=== PATIENT | male | born 1965 | race Caucasian/White ===

== ENCOUNTER 2018-10-14 07:13 | Inpatient (IN) ==
[2018-10-14] MEDS ORDERED: IOPAMIDOL 100 ML BOTTLE IV ONE (07:14)
[2018-10-14] MEDS ORDERED: 0.9 % SODIUM CHLORIDE 1,000 ML IV ONE (07:18)
--- NOTE | 2018-10-14 08:00 | Emergency Department Note ---
Extremity Problem HPI - General Chief complaint: Extremity Problem,Nontraumatic Stated complaint: left foot redness, swelling, infection Time Seen by Provider: 10/14/18 07:57 Source: patient Mode of arrival: ambulatory Limitations: no limitations - History of Present Illness HPI Narrative: Patient seen here on Monday. At that time was diagnosed as having influenza, high fevers, treated with Tamiflu, discharged to home and is been sleeping mostly since that time. For the last 2 days he's noticed redness of the left foot that started in the toe area any status post amputation of his left fourth toe. He also had a foot ulcer on the bottom of his foot underneath that toe which she was not aware of. Has had fevers chills but then mostly associated with the flu and then those have been improving. Since Monday has developed increasing redness of the left foot now has foot pain as well as ankle pain with movement of the ankle and blister formation to the dorsum of the left amputee site. He feels better from the influenza point of view, is occasionally coughing, not bringing up any phlegm, denies chest pain, denies shortness of breath denies abdominal pain had a little bit of diarrhea but that has resolved. Did drink a lot of water in the last few days. Has not been ambulatory very much secondary to the generalized illness, did notice redness and swelling to the entire left foot almost up to the knee. - Related Data Previous Rx's Medication Instructions Recorded benzonatate 100 mg capsule 100 mg PO .q 8 hours PRN #30 cap 10/01/18 Oseltamivir Phosphate [Tamiflu] 75 mg PO BID #10 cap 10/10/18 Allergies Allergy/AdvReac Type Severity Reaction Status Date / Time No Known Drug Allergies Allergy Verified 10/14/18 07:18 Review of Systems All systems ED: reviewed and negative except as stated. Constitutional: Reports: fever, chills, weakness Past Medical History - Past Medical History Source: nursing notes reviewed Medical history: Reports: non-contributory, other (Recent sinusitis) Surgical history ED: Reports: orthopedic, other Family history: Reports: no significant family history - Social History smoking status: Never smoker Alcohol use: Reports: None Drug use: Reports: none Physical Exam Limitations: no limitations General appearance: alert, in no apparent distress Head: atraumatic, normocephalic Eye: Present: normal appearance, PERRL. Absent: scleral icterus, conjunctival injection ENT: normal exam, normal oropharynx, mucous membranes moist, TM's normal bilaterally, normal external ear exam Neck: Present: normal inspection, full ROM, trachea midline. Absent: tenderness, meningismus Chest: Present: normal inspection, symmetric chest wall rise Respiratory: Present: normal lung sounds bilaterally. Absent: respiratory distress, rales/crackles, wheezes Cardiovascular: Present: regular rate, normal heart sounds Abdominal: Present: soft, normal bowel sounds. Absent: distention, tenderness Extremities: Present: tenderness, pedal edema, joint swelling, other (he has a 1 cm ulceration to the bottom of the foot near MTP joint number for. There is also small vesicular erythematous lesion on the top of the foot near the amputee site). Absent: calf tenderness Back: Absent: CVA tenderness (R), CVA tenderness (L) Neurological: Present: alert, oriented X3, CN II-XII intact. Absent: motor sensory deficit Psychiatric: Present: normal affect Skin: Present: warm, erythema, other (erythema and swelling to the entire dorsum of the left foot.) Course - Reevaluation(s) Reevaluation #1: X-rays reviewed and he does appear to have gas collection to the area of the w ound. That is of concern. Sedimentation rate is pending, chemistry panels pending. Patient signed out to Dr. lee at 9 AM. Vital Signs Temperature 97.9 F 10/14/18 07:14 Pulse Rate 83 10/14/18 07:14 Respiratory Rate 18 10/14/18 07:14 Blood Pressure 135/84 10/14/18 07:14 Pulse Oximetry (%) 97 10/14/18 07:14 Temperature 97.9 F 10/14/18 07:14 Pulse Rate 83 10/14/18 07:14 Respiratory Rate 18 10/14/18 07:14 Blood Pressure 135/84 10/14/18 07:14 Pulse Oximetry (%) 97 10/14/18 07:14 Extremity Problem, Nontraumati - MDM Narrative Medical decision making narrative: Initial impression cellulitis left foot - Lab Data Result diagrams: 10/14/18 07:25 10/14/18 07:25 Lab Results 10/14/18 10/14/18 Range/Units 07:25 07:25 WBC 10.3 (4.5-11.0) K/mcL RBC 4.79 (4.50-5.90) M/mcL Hgb 13.9 (13.5-16.5) g/dL Hct 42.3 (41.0-55.0) % MCV 88.4 (80.0-100.0) fL MCH 29.0 (26.0-34.0) pg MCHC 32.8 (31.0-36.0) g/dL RDW 13.8 (11.5-14.5) % Plt Count 375 (140-440) K/mcL MPV 8.0 (7.4-10.4) fL Band Neutrophils % Not Reportable VBG Lactic Acid 1.0 (0.5-2.0) mmol/L Disposition Pt seen by PRESIDENT AND CHIEF COMMERCIAL OFFICER/PA only: No Clinical Impression: Cellulitis Disposition: Still a Patient Condition: Fair Referrals: Lisa Isaacs ARNP [Primary Care Provider] -
[2018-10-14] MEDS ORDERED: VANCOMYCIN 1,500 MG in 0.9 % SODIUM CHLORIDE 500 ML IV ONE (08:04)
[2018-10-14] MEDS ORDERED: PIPERACILLIN SODIUM/TAZOBACTAM 3.375 GM in DEXTROSE 5% IN WATER 50 ML IV ONE (08:05)
[2018-10-14 08:38] LABS: Mean Cell Volume 88.4 fL (80.0-100.0); Mean Corpuscular HGB Conc 32.8 g/dL (31.0-36.0); Platelet Count 375 K/mcL (140-440); RBC 4.79 M/mcL (4.50-5.90); Red Cell Distribution Width 13.8 % (11.5-14.5)
[2018-10-14 08:56] LABS: Lymphocytes % 27 % (15-49); Monocytes % (Manual) 8 % (1-12); Platelet Estimate NORMAL (NORMAL); RBC Morphology NORMAL (NORMAL); Segmented Neutrophils % 64 % (38-78)
[2018-10-14 09:04] LABS: ALT/SGPT 27 U/l (0-40); Albumin 3.9 gm/dL (3.2-5.2); Albumin/Globulin Ratio 1.1 (1.0-2.3); Alkaline Phosphatase 83 U/L (39-117); Blood Urea Nitrogen 9 mg/dl (6-20)
[2018-10-14] MEDS ORDERED: HYDROmorphone 2 MG/ML VIAL IV PRN (10:19)
--- NOTE | 2018-10-14 12:11 | Internal Med History&Physical ---
Medical - H&P: HPI Patient information: Note initiated : 10/14/18 at 12:08 pm Service Date, if different from initiated Date: [] Patient: Kel Hernandez 53 y/o M admitted on 10/14/18 for Left Foot Redness, Swelling, Infection. Chief Complaint: [] History of present illness: Mr. Hernandez is a 53 year old M presents to the ED with left distal foot wound with swelling tenderness erythema. He recently was diagnosed on Monday in the ED with influenza and feels he is improving from that standpoint. On Wednesdays when he realized he had a "hole in his foot" but there is no swelling pain erythema around it at that time. Is now feeling better from a flu aspect. However Monday his ankle started swelling and become puffy and had some redness around his foot and then this morning he has significant erythema and swelling of his foot and tenderness and some drainage over the fourth toe amputation. He said fevers chills headache. Some nausea but no vomiting and some diarrhea a few days ago. In the ED there is a imaging done which was concerning for fasciitis with some gas. Dr. Burr was contacted. She was started on IV antibiotics. Review of Systems: Pertinent positives as above. Denies vomiting/chest or abdominal pain/cough/dyspnea. Remaining 10 point review of system reviewed negative Medical - H&P: PMH Medical history: Past medical history: Patient has peripheral neuropathy, he has had what he said the whole body angiography by Dr. Connolly which was unremarkable. Chronic wounds to his feet and has had 2 amputations one on each foot the past. Past surgical history: Amputation of the right third toe and left fourth toe family history: Mother is healthy Father had cancer from agent orange Social history: Patient denies tobacco drinks alcohol socially is on his feet 18 hours a day with a [employer] and [employer] Medical - H&P: Meds Home Medications Medication Instructions Recorded Confirmed Type Oseltamivir Phosphate [Tamiflu] 75 mg PO BID #10 cap 10/10/18 10/14/18 Rx Allergies Allergy/AdvReac Type Severity Reaction Status Date / Time No Known Drug Allergies Allergy Verified 10/14/18 07:18 Medical - H&P: Exam - Constitutional Vitals: Temp Pulse Resp BP Pulse Ox 97.9 F 83 18 140/88 98 10/14/18 07:14 10/14/18 07:14 10/14/18 07:14 10/14/18 10:50 10/14/18 10:50 Exam: General: Alert, Awake, No acute Distress Eyes/N/T: EOMI, PEERL, Head/Neck: neck supple, normocephalic atraumatic CV: RRR, No murmurs, normal s1/s2 Pulm: Clear b/l, no wheezing/rhonchi/rales Abd: soft, nontender, +BS x4 Ext: no clubbing/cyanosis/edema. Left foot extending from the toe up into the somers with erythema warmth tenderness he has an open wound around the fourth toe with drainage. Neuro: Alert, moves all extremities, CN 2-12 grossly intact, symmetrical strength b/l upper/lower, sensations intact but decreased lower extremity skin: warm/dry Medical - H&P: Reslt - Labs CBC & Chem 7: 10/14/18 07:25 10/14/18 07:25 Labs: Short CBC 10/14/18 Range/Units 07:25 WBC 10.3 (4.5-11.0) K/mcL Hgb 13.9 (13.5-16.5) g/dL Hct 42.3 (41.0-55.0) % Plt Count 375 (140-440) K/mcL BMP 10/14/18 07:25 Sodium 143 Potassium 4.3 Chloride 106 Carbon Dioxide 24 BUN 9 Creatinine 0.8 Glucose 109 H Calcium 9.1 Liver Function 10/14/18 Range/Units 07:25 Total Bilirubin 0.5 (0.0-1.0) mg/dL AST 21 (0-37) U/l ALT 27 (0-40) U/l Alkaline Phosphatase 83 (39-117) U/L Albumin 3.9 (3.2-5.2) gm/dL Medical - H&P: A/P - Narrative A/P Narrative: A: *Left foot wound infection: -CT showing gas over site of wound *Peripheral neuropathy: Unknown etiology, has seen Dr. Connolly for angiography in past *History of foot wounds: Has seen Dr. Burr in the past *Influenza: Currently undergoing treatment * P: -vanc/zosyn, clind brief course -Dr. Burr following, surgical I&D tomorrow -wound care -Continue home Tamiflu - -ppx: Heparin
--- NOTE | 2018-10-14 12:42 | General Surgery Consult Note ---
History of Present Illness Patient information: Note initiated : 10/14/18 at 12:35 pm Service Date, if different from initiated Date: [] Patient: Kel Hernandez 53 y/o M admitted on 10/14/18 for Left Foot Redness, Swelling, Infection. Chief Complaint: [] Consult date: 10/14/18 Requesting physician: Jason Kimball (Cellultis LEFT foot. Infected neuropathic ulcer LEFT piantar. ) History of present illness: 53/M Admitted via ER with Cellulitis LEFT foot, ankle and lower leg for over 3 to 4 days. Patient has NON DIABETIC peripheral neuropathy of both feet, LEFT > Right . He is s/p LEFT 4 th toe amputation over a year ago. 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 He was seen in ER for FLU like symptoms over 4 to 5 days ago. Given Tamiflu. He is recovering from FLU, but noticed warmth, redness and drainage from the previous toe amputation site with some odor. Imaging studies reveal open plantar area with air in the sub cutaneous tissues. Admitted to hospital for further treatment and started on IV vancomycin and Zosyn. Review of Systems - Constitutional fever(s), night sweats - Integumentary as per HPI, lesions, wounds, other (Plantar ulcer which probes to the interosseous space and dorsal surface of foot. ) - Neurological numbness, sensory deficit Past History Past medical history: Non Diabetic peripheral neuropathy of both feet. Patient received steroid injections around ankle and plantar pressure points of feet in past. Past surgical history: Left fourth toe amputation in past. Medications and Allergies Home Medications Medication Instructions Recorded Confirmed Type Oseltamivir Phosphate [Tamiflu] 75 mg PO BID #10 cap 10/10/18 Rx Allergies Allergy/AdvReac Type Severity Reaction Status Date / Time No Known Drug Allergies Allergy Verified 10/14/18 07:18 Exam Temp Pulse Resp BP Pulse Ox 97.9 F 83 18 140/88 98 10/14/18 07:14 10/14/18 07:14 10/14/18 07:14 10/14/18 10:50 10/14/18 10:50 - General physical appearance well developed, well nourished, no distress, no pain - Eyes PERRL, normal ocular movement - ENT normal pinna, normal nares, normal mucosa, no congestion - Head Head exam IM: Present: atraumatic, normocephalic - Neck no masses, no bruits, no venous distension - Cardiovascular Cardiovascular exam IM: Present: normal rate and rhythm - Respiratory normal expansion, clear to auscultation - Abdomen Abdomen: Present: soft, non tender, bowel sounds - Integumentary Present: other (Plantar ulcer at site of 4 th toe amputation LEFT foot. Probes to soft tissue at site of toe amputation and towards dorsal foot area. There is cellultis along lateral aspect of foot , ankle and towards knee area. ) - Neurologic Present: other (Mixed peripheral neuropathy of both feet, ankles and lower legs. LEFT > RIGHT.) - Musculoskeletal Present: other (Left 4 th toe amputation is past. ) - Psychiatric Present: oriented to time, oriented to person, oriented to place, speech is normal, memory intact Results - Labs 10/14/18 07:25 10/14/18 07:25 Abnormal lab results 10/14/18 10/14/18 Range/Units 07:25 07:25 ESR 72 H (0-15) mm/hr Glucose 109 H (70-105) mg/dL Diabetes panel 10/14/18 Range/Units 07:25 Sodium 143 (133-145) mmol/L Potassium 4.3 (3.3-5.1) mmol/L Chloride 106 (96-108) mmol/L Carbon Dioxide 24 (22-30) mmol/L BUN 9 (6-20) mg/dl Creatinine 0.8 (0.7-1.2) mg/dl Glucose 109 H (70-105) mg/dL Calcium 9.1 (8.6-10.4) mg/dl AST 21 (0-37) U/l ALT 27 (0-40) U/l Alkaline Phosphatase 83 (39-117) U/L Total Protein 7.4 (5.9-8.4) gm/dL Albumin 3.9 (3.2-5.2) gm/dL Calcium panel 10/14/18 Range/Units 07:25 Calcium 9.1 (8.6-10.4) mg/dl Albumin 3.9 (3.2-5.2) gm/dL Pituitary panel 10/14/18 Range/Units 07:25 Sodium 143 (133-145) mmol/L Potassium 4.3 (3.3-5.1) mmol/L Chloride 106 (96-108) mmol/L Carbon Dioxide 24 (22-30) mmol/L BUN 9 (6-20) mg/dl Creatinine 0.8 (0.7-1.2) mg/dl Glucose 109 H (70-105) mg/dL Calcium 9.1 (8.6-10.4) mg/dl Adrenal panel 10/14/18 Range/Units 07:25 Sodium 143 (133-145) mmol/L Potassium 4.3 (3.3-5.1) mmol/L Chloride 106 (96-108) mmol/L Carbon Dioxide 24 (22-30) mmol/L BUN 9 (6-20) mg/dl Creatinine 0.8 (0.7-1.2) mg/dl Glucose 109 H (70-105) mg/dL Calcium 9.1 (8.6-10.4) mg/dl Total Bilirubin 0.5 (0.0-1.0) mg/dL AST 21 (0-37) U/l ALT 27 (0-40) U/l Alkaline Phosphatase 83 (39-117) U/L Total Protein 7.4 (5.9-8.4) gm/dL Albumin 3.9 (3.2-5.2) gm/dL All other labs normal. Assessment and Plan (1) Other specified sepsis Assessment: CSSSI Left foot. Plantar ulcer 4 th toe amputation site. Plan: Wound cleaned at bedside. SEE wound care orders. Patient will need OR debridement HOLGER. Status: Acute Priority: High Comment: Infected LEFT foot plantar ulcer with neuropathy (2) Foot ulcer, left Status: Acute Priority: High Comment: Assessment:Neuropathic LEFT foot plantar ulcer with CSSSI. Plan: See wound care orders. For OR debridement HOLGER Qualifiers: Non-pressure ulcer stage: unspecified non-pressure ulcer stage Qualified Code(s): L97.529 - Non-pressure chronic ulcer of other part of left foot with unspecified severity
--- NOTE | 2018-10-14 12:58 | XRay Report ---
CLINICAL INFORMATION: foot infection COMPARISON: 04/26/2017 FINDINGS: Fourth ray amputation changes at the MTP level again noted. The remaining osseous structures are grossly normal - no plain film evidence for osteomyelitis. There is; however moderate forefoot soft tissue swelling with gas seen in the soft tissues overlying the fourth metatarsal amputation stump suggestive of with cellulitis/fasciitis. Moderate degenerative changes noted in the ankle and talocalcaneal and navicular cuneiform joints. IMPRESSION: Moderate cellulitis/fasciitis in the forefoot in the fourth and fifth rays. Gas within the soft tissues which may have originated from a gas-forming organism or merely be atmospheric. No specific radiographic evidence for osteomyelitis. Interpreted and Authenticated by: Lyle Jerome 10/14/18
[2018-10-14] MEDS ORDERED: ONDANSETRON 4 MG/2 ML VIAL IV PRN (13:15)
[2018-10-14] MEDS ORDERED: VANCOMYCIN PER PHARMACY IV SCH (13:15)
[2018-10-14] MEDS ORDERED: ACETAMINOPHEN 325 MG TABLET PO PRN (13:15)
--- NOTE | 2018-10-14 13:27 | Cat Scan Report ---
CLINICAL INFORMATION: left foot infection COMPARISON: Plain films 04/26/2017 and 10/14/2018. TECHNIQUE: 0.625 helical slices were obtained from the distal tibia and fibula ankle and foot. Following reconstruction, 2.5 axial, sagittal and coronal reformatted images were processed and reviewed in bone and soft tissue windows.. FINDINGS: Fourth ray amputation at the MTP level appreciated. The amputation stump is unremarkable: There is no specific radiographic evidence for osteomyelitis throughout the foot or ankle. There is moderate soft tissue inflammation involving subcutaneous fat and fascia over the fourth and fifth ray which contains subcutaneous gas. Suspect cellulitis and fasciitis. There is an 18 x 3 mm ossification in the deep plantar soft tissues underlying the cuboid and fourth metatarsal base. All ununited avulsion fractures off the tip of the medial malleolus appreciated. There is a 3 mm loose body in the posterior aspect of the ankle mortise. A 4 mm remote avulsion fracture off the lateral calcaneus appreciated. There is mild degenerative change in the talonavicular and navicular cuneiform with marginal spurring. Hammertoe deformities present second through fifth digits IMPRESSION: 1. Moderate cellulitis/fasciitis in the forefoot particularly the fourth and fifth rays. Focal gas seen in the subdermal soft tissues. Gas may been generated from a gas-forming organism or be atmospheric. There is no specific evidence for osteomyelitis or septic arthritis. 2. Other minor chronic findings as described Interpreted and Authenticated by: Lyle Jerome 10/14/18
[2018-10-14] MEDS: CLINDAMYCIN 600 MG in DEXTROSE 5% IN WATER 50 ML IV SCH ×2 (14:39→22:50)
[2018-10-14] MEDS: 0.9 % SODIUM CHLORIDE 10 ML SYRINGE IV SCH ×2 (14:44→20:53)
[2018-10-14] MEDS: PIPERACILLIN SODIUM/TAZOBACTAM 3.375 GM in DEXTROSE 5% IN WATER 50 ML IV SCH (17:57)
[2018-10-14] MEDS: HYDROcodone/APAP 5/325MG TABLET PO PRN (19:05)
[2018-10-14] MEDS: LACTOBACILLUS 1 CAPSULE PO SCH (20:53)
[2018-10-14] MEDS: VANCOMYCIN 1,500 MG in 0.9 % SODIUM CHLORIDE 500 ML IV SCH (20:54)
[2018-10-14] MEDS ORDERED: OSELTAMIVIR PHOSPHATE 75 MG CAPSULE PO SCH (21:00)
[2018-10-14] MEDS: MUPIROCIN OINT 2% 22GM TOPICAL SCH (23:58)
[2018-10-14] MEDS ORDERED: 0.9 % SODIUM CHLORIDE 1,000 ML IV SCH (23:59)
[2018-10-15] MEDS: HYDROcodone/APAP 5/325MG TABLET PO PRN ×4 (00:07→20:56)
[2018-10-15] MEDS: PIPERACILLIN SODIUM/TAZOBACTAM 3.375 GM in DEXTROSE 5% IN WATER 50 ML IV SCH ×5 (00:10→23:53)
[2018-10-15 05:45] LABS: Basophils # (Auto) 0 K/mcL (0.0-0.3); Basophils % (Auto) 0.3 % (0.0-2.0); Eosinophils # (Auto) 0.3 K/mcL (0.0-0.7); Eosinophils % (Auto) 2.5 % (0.0-7.0); Granulocytes % (Auto) 62.3 % (38.0-78.0); Lymphocytes # (Auto) 2.3 K/mcL (1.5-4.8); Lymphocytes % (Auto) 21.7 % (15.5-49.0); Mean Cell Volume 89.4 fL (80.0-100.0); Mean Corpuscular HGB Conc 32.6 g/dL (31.0-36.0); Monocytes # (Auto) 1.4 K/mcL (0.1-0.9); Monocytes % (Auto) 13.2 % (1.0-12.0); Platelet Count 328 K/mcL (140-440); RBC 4.13 M/mcL (4.50-5.90); Red Cell Distribution Width 13.5 % (11.5-14.5)
[2018-10-15 06:04] LABS: ALT/SGPT 27 U/l (0-40); Albumin 3.3 gm/dL (3.2-5.2); Albumin/Globulin Ratio 1.1 (1.0-2.3); Alkaline Phosphatase 75 U/L (39-117); Bilirubin,Direct < 0.2 mg/dL (0.0-0.3); Blood Urea Nitrogen 8 mg/dl (6-20); C-Reactive Protein 8.8 mg/dl (0.0-0.8); Gamma Glutamyl Transpeptidase 30 U/L (8-61); Uric Acid 3.7 mg/dL (2.5-8.0)
[2018-10-15] MEDS: CLINDAMYCIN 600 MG in DEXTROSE 5% IN WATER 50 ML IV SCH (06:06)
[2018-10-15] MEDS: 0.9 % SODIUM CHLORIDE 10 ML SYRINGE IV SCH ×3 (06:06→20:56)
--- NOTE | 2018-10-15 06:55 | Internal Med Progress Note ---
Medical - PN: Subj Patient information: Note initiated : 10/15/18 at 6:52 am Service Date, if different from initiated Date: [] Patient: Kel Hernandez 53 y/o M admitted on 10/14/18 for Left Foot Redness, Swelling, Infection. Chief Complaint: [] Interval history: Mr. Hernandez is a 53 year old M presents to the ED with left distal foot wound with swelling tenderness erythema. He recently was diagnosed on Monday in the ED with influenza and feels he is improving from that standpoint. On Wednesdays when he realized he had a "hole in his foot" but there is no swelling pain erythema around it at that time. Is now feeling better from a flu aspect. However Monday his ankle started swelling and become puffy and had some redness around his foot and then this morning he has significant erythema and swelling of his foot and tenderness and some drainage over the fourth toe amputation. He said fevers chills headache. Some nausea but no vomiting and some diarrhea a few days ago. In the ED there is a imaging done which was concerning for fasciitis with some gas. Dr. Burr was contacted. She was started on IV antibiotics. 10/15 No new complaints. No overnight events. Ankle wrapped in dressing. Plan for OR I&D today with Dr. Burr. Review of Systems: denies headache/fever/chills/nausea/vomiting/chest or abdominal pain/cough/dyspnea/diarrhea. Otherwise see above. - Constitutional Vitals: Vital Signs Temp Pulse Resp BP Pulse Ox 98.7 F 78 14 120/71 96 10/15/18 04:58 10/15/18 04:58 10/15/18 04:58 10/15/18 04:58 10/15/18 04:58 Period Temp Pulse Resp BP Sys/Sweet Pulse Ox Last 24 Hr 97.9 F-100.4 F 68-86 12-18 110-140/66-88 96-98 Intake and Output 10/14/18 10/15/18 10/15/18 21:59 05:59 13:59 Intake Total 1354 1629 Output Total 575 Balance 1354 1054 Weight 84.368 kg Intake & Output: Intake & Output 10/14/18 10/15/18 10/15/18 21:59 05:59 13:59 Intake Total 1354 1629 Output Total 575 Balance 1354 1054 Weight 84.368 kg Intake: IV 104 604 Cleocin 600 mg In Dextrose 5% 54 54 in Water 50 ml @ 100 mls/hr IV Q8H [facility] Rx#:[id number] Zosyn 3.375 gm In Dextrose 5% 50 50 in Water 50 ml @ 100 mls/hr IV Q6H [facility] Rx#:[id number] Vancomycin 1,500 mg In Sodium 500 Chloride 0.9% 500 ml @ 333.3 mls/hr IV Q12H [facility] Rx#: [id number] Oral 1250 1025 Output: Void Amount 575 Other: Meal Dinner Percent of Meal Consumed 75% Feeding Ability Independent # Voids 1 1 Exam: General: Alert, Awake, No acute Distress Eyes/N/T: EOMI, , Head/Neck: neck supple, CV: RRR, No murmurs, Pulm: Clear b/l, no wheezing/rhonchi/rales Abd: soft, nontender, +BS x4 Ext: no clubbing/cyanosis/edema. Left foot with dressings in place. Neuro: Alert, moves all extremities, skin: warm/dry Medical - PN: Obj Da - Labs CBC & Chem 7: 10/15/18 04:15 10/15/18 04:15 Labs: Abnormal Lab Results 10/15/18 10/15/18 10/14/18 04:15 04:15 07:25 RBC 4.13 L Hgb 12.0 L Hct 36.9 L [place] % (Auto) 13.2 H [place] # (Auto) 1.4 H ESR Glucose Calcium 8.4 L C-Reactive Protein 8.8 H 16.5 H 10/14/18 10/14/18 07:25 07:25 RBC Hgb Hct [place] % (Auto) [place] # (Auto) ESR 72 H Glucose 109 H Calcium C-Reactive Protein Meds: Medications Acetaminophen (Tylenol) 650 mg PO Q6HP PRN PRN Reason: PAIN/FEVER > 101 Last Admin: 10/14/18 17:27 Dose: 650 mg Documented by: Hydrocodone Bitart/Acetaminophen ([place]el[place] 5/325mg) 1 tab PO Q4HP PRN PRN Reason: PAIN LEVEL 3-6 Last Admin: 10/15/18 04:59 Dose: 1 tab Documented by: Heparin Sodium (Porcine) (Heparin) 5,000 unit SQ Q12 [facility] Clindamycin Phosphate 600 mg/ (Dextrose) 54 mls @ 100 mls/hr IV Q8H [facility]; Protocol Last Admin: 10/15/18 06:06 Dose: 100 mls/hr Documented by: Sodium Chloride (Sodium Chloride 0.9%) 1,000 mls @ 75 mls/hr IV .[id number] [facility] Stop: 10/15/18 13:18 Last Admin: 10/14/18 22:47 Dose: 75 mls/hr Documented by: Piperacillin Sod/Tazobactam (Sod 3.375 gm/ Dextrose) 50 mls @ 100 mls/hr IV Q6H [facility]; Protocol Last Admin: 10/15/18 05:04 Dose: 100 mls/hr Documented by: Vancomycin HCl 1,500 mg/ (Sodium Chloride) 500 mls @ 333.3 mls/hr IV Q12H [facility] Last Infusion: 10/14/18 22:45 Dose: Infused Documented by: Lactobacillus Rhamnosus (Culturelle) 1 cap PO BID [facility] Last Admin: 10/14/18 20:53 Dose: 1 cap Documented by: Morphine Sulfate (Morphine) 1 - 2 mg IV Q4HP PRN PRN Reason: PAIN LEVEL > 6 Last Admin: 10/15/18 00:16 Dose: 1 mg Documented by: Mupirocin (Bactroban Oint 2%) 1 dose TOPICAL BID [facility] Last Admin: 10/14/18 23:58 Dose: 1 dose Documented by: Ondansetron HCl (Zofran) 4 mg IV Q6HP PRN PRN Reason: Nausea And Vomiting Sodium Chloride (Saline Flush) 10 ml IV Q8 [facility] Last Admin: 10/15/18 06:06 Dose: Not Given Documented by: Vancomycin HCl (Vancomycin Per Pharmacy) 1 order IV UD [facility]; Protocol Medical - PN: A/P - Time Spent With Patient Total time spent is greater than 50% in coordination of care (as documented) at patient's floor/unit and/or counseling patient: - Narrative A/P Narrative: A: *Left foot wound infection/cellulitis: -CT showing gas over site of wound -CRP improving *Peripheral neuropathy: Unknown etiology, has seen Dr. Connolly for angiography in past *History of foot wounds: Has seen Dr. Burr in the past *Influenza: Currently undergoing treatment, finished * P: -vanc/zosyn, clindamycin brief course -Dr. Burr following, surgical I&D today -pending / -wound care - -ppx: Heparin tonight, hold this AM for procedure
--- NOTE | 2018-10-15 07:11 | Emergency Department Note ---
Extremity Problem HPI - General Chief complaint: Extremity Problem,Nontraumatic Stated complaint: left foot redness, swelling, infection Time Seen by Provider: 10/14/18 07:57 Source: patient Mode of arrival: ambulatory Limitations: no limitations - Related Data Previous Rx's Medication Instructions Recorded Oseltamivir Phosphate [Tamiflu] 75 mg PO BID #10 cap 10/10/18 Allergies Allergy/AdvReac Type Severity Reaction Status Date / Time No Known Drug Allergies Allergy Verified 10/14/18 07:18 Review of Systems Constitutional: Reports: fever, chills, weakness Past Medical History - Past Medical History Medical history: Reports: non-contributory, other (Recent sinusitis) Surgical history ED: Reports: orthopedic, other - Social History smoking status: Never smoker Alcohol use: Reports: None Drug use: Reports: none Physical Exam Limitations: no limitations General appearance: alert, in no apparent distress Course Vital Signs Temperature 97.9 F 10/14/18 07:14 Pulse Rate 83 10/14/18 07:14 Respiratory Rate 18 10/14/18 07:14 Blood Pressure 135/84 10/14/18 07:14 Pulse Oximetry (%) 97 10/14/18 07:14 Temperature 98.7 F 10/15/18 04:58 Pulse Rate 78 10/15/18 04:58 Respiratory Rate 14 10/15/18 04:58 Blood Pressure 120/71 10/15/18 04:58 Pulse Oximetry (%) 96 10/15/18 04:58 Extremity Problem, Nontraumati - MDM Narrative Medical decision making narrative: CT scan did show some gas in the area of foot tissue but no obvious abscess. The patient had previously been started on vancomycin by Dr. Salgado. Also Fede. He will be admitted to the hospital by the hospital service with Dr. richard ortega consulting. - Lab Data Lab results reviewed: Yes I reviewed the patient's lab results. Result diagrams: 10/15/18 04:15 10/15/18 04:15 Lab Results 10/14/18 10/14/18 10/14/18 Range/Units 07:25 07:25 07:25 WBC 10.3 (4.5-11.0) K/mcL RBC 4.79 (4.50-5.90) M/mcL Hgb 13.9 (13.5-16.5) g/dL Hct 42.3 (41.0-55.0) % MCV 88.4 (80.0-100.0) fL MCH 29.0 (26.0-34.0) pg MCHC 32.8 (31.0-36.0) g/dL RDW 13.8 (11.5-14.5) % Plt Count 375 (140-440) K/mcL MPV 8.0 (7.4-10.4) fL Total Counted 100 Seg Neutrophils % 64 (38-78) % Band Neutrophils % Not Reportable Lymphocytes % 27 (15-49) % Monocytes % (Manual) 8 (1-12) % Reactive Lymphocytes 1 (0-2) % Platelet Estimate Normal (NORMAL) RBC Morphology Normal (NORMAL) ESR (0-15) mm/hr VBG Lactic Acid 1.0 (0.5-2.0) mmol/L Sodium 143 (133-145) mmol/L Potassium 4.3 (3.3-5.1) mmol/L Chloride 106 (96-108) mmol/L Carbon Dioxide 24 (22-30) mmol/L Anion Gap 13.0 (8-16) BUN 9 (6-20) mg/dl Creatinine 0.8 (0.7-1.2) mg/dl GFR Calculation 101 Glucose 109 H (70-105) mg/dL Calcium 9.1 (8.6-10.4) mg/dl Total Bilirubin 0.5 (0.0-1.0) mg/dL AST 21 (0-37) U/l ALT 27 (0-40) U/l Alkaline Phosphatase 83 (39-117) U/L C-Reactive Protein (0.0-0.8) mg/dl Total Protein 7.4 (5.9-8.4) gm/dL Albumin 3.9 (3.2-5.2) gm/dL Globulin 3.5 (2.2-3.7) gm/dL Albumin/Globulin Ratio 1.1 (1.0-2.3) 10/14/18 10/14/18 Range/Units 07:25 07:25 WBC (4.5-11.0) K/mcL RBC (4.50-5.90) M/mcL Hgb (13.5-16.5) g/dL Hct (41.0-55.0) % MCV (80.0-100.0) fL MCH (26.0-34.0) pg MCHC (31.0-36.0) g/dL RDW (11.5-14.5) % Plt Count (140-440) K/mcL MPV (7.4-10.4) fL Total Counted Seg Neutrophils % (38-78) % Band Neutrophils % Lymphocytes % (15-49) % Monocytes % (Manual) (1-12) % Reactive Lymphocytes (0-2) % Platelet Estimate (NORMAL) RBC Morphology (NORMAL) ESR 72 H (0-15) mm/hr VBG Lactic Acid (0.5-2.0) mmol/L Sodium (133-145) mmol/L Potassium (3.3-5.1) mmol/L Chloride (96-108) mmol/L Carbon Dioxide (22-30) mmol/L Anion Gap (8-16) BUN (6-20) mg/dl Creatinine (0.7-1.2) mg/dl GFR Calculation Glucose (70-105) mg/dL Calcium (8.6-10.4) mg/dl Total Bilirubin (0.0-1.0) mg/dL AST (0-37) U/l ALT (0-40) U/l Alkaline Phosphatase (39-117) U/L C-Reactive Protein 16.5 H (0.0-0.8) mg/dl Total Protein (5.9-8.4) gm/dL Albumin (3.2-5.2) gm/dL Globulin (2.2-3.7) gm/dL Albumin/Globulin Ratio (1.0-2.3) - Radiology Data Radiology results reviewed: Yes I reviewed the patient's radiology results. Disposition Pt seen by SIZING MACHINE TENDER/PA only: No Clinical Impression: Cellulitis Disposition: Xfer As Outpt/Obs ([facility]) Condition: Good
--- NOTE | 2018-10-15 07:40 | General Surgery Progress Note ---
Subjective Patient reports: no new complaints Narrative: Note initiated : 10/15/18 at 7:36 am Service Date, if different from initiated Date: [] Patient: Kel Hernandez 53 y/o M admitted on 10/14/18 for Left Foot Re dness, Swelling, Infection. Chief Complaint: [] Patient had an uneventful night. MIST treatment to Left foot and continuing IV antibiotics. Objective Temp Pulse Resp BP Pulse Ox 98.7 F 78 14 120/71 96 10/15/18 04:58 10/15/18 04:58 10/15/18 04:58 10/15/18 04:58 10/15/18 04:58 AVSS. No changes KATIE L/E Left foot: Improving cellulitis. - Additional Data Intake & Output - Last 24 hours: Intake & Output 10/13/18 10/14/18 10/15/18 10/16/18 05:59 05:59 05:59 05:59 Intake Total 3533 Output Total 575 Balance 2958 Weight 186 lb - Labs 10/15/18 04:15 10/15/18 04:15 Diabetes panel 10/14/18 10/15/18 10/15/18 Range/Units 07:25 04:00 04:15 Sodium 143 TNP 142 (133-145) mmol/L Potassium 4.3 TNP 4.6 (3.3-5.1) mmol/L Chloride 106 TNP 105 (96-108) mmol/L Carbon Dioxide 24 TNP 26 (22-30) mmol/L BUN 9 TNP 8 (6-20) mg/dl Creatinine 0.8 TNP 0.8 (0.7-1.2) mg/dl Glucose 109 H TNP 101 (70-105) mg/dL Calcium 9.1 TNP 8.4 L (8.6-10.4) mg/dl AST 21 TNP 18 (0-37) U/l ALT 27 TNP 27 (0-40) U/l Alkaline Phosphatase 83 TNP 75 (39-117) U/L Total Protein 7.4 TNP 6.2 (5.9-8.4) gm/dL Albumin 3.9 TNP 3.3 (3.2-5.2) gm/dL Triglycerides TNP 73 Calcium panel 10/14/18 10/15/18 10/15/18 Range/Units 07:25 04:00 04:15 Calcium 9.1 TNP 8.4 L (8.6-10.4) mg/dl Phosphorus TNP 3.8 Albumin 3.9 TNP 3.3 (3.2-5.2) gm/dL Pituitary panel 10/14/18 10/15/18 10/15/18 Range/Units 07:25 04:00 04:15 Sodium 143 TNP 142 (133-145) mmol/L Potassium 4.3 TNP 4.6 (3.3-5.1) mmol/L Chloride 106 TNP 105 (96-108) mmol/L Carbon Dioxide 24 TNP 26 (22-30) mmol/L BUN 9 TNP 8 (6-20) mg/dl Creatinine 0.8 TNP 0.8 (0.7-1.2) mg/dl Glucose 109 H TNP 101 (70-105) mg/dL Calcium 9.1 TNP 8.4 L (8.6-10.4) mg/dl Adrenal panel 10/14/18 10/15/18 10/15/18 Range/Units 07:25 04:00 04:15 Sodium 143 TNP 142 (133-145) mmol/L Potassium 4.3 TNP 4.6 (3.3-5.1) mmol/L Chloride 106 TNP 105 (96-108) mmol/L Carbon Dioxide 24 TNP 26 (22-30) mmol/L BUN 9 TNP 8 (6-20) mg/dl Creatinine 0.8 TNP 0.8 (0.7-1.2) mg/dl Glucose 109 H TNP 101 (70-105) mg/dL Calcium 9.1 TNP 8.4 L (8.6-10.4) mg/dl Total Bilirubin 0.5 TNP 0.5 (0.0-1.0) mg/dL AST 21 TNP 18 (0-37) U/l ALT 27 TNP 27 (0-40) U/l Alkaline Phosphatase 83 TNP 75 (39-117) U/L Total Protein 7.4 TNP 6.2 (5.9-8.4) gm/dL Albumin 3.9 TNP 3.3 (3.2-5.2) gm/dL Assessment and Plan (1) Other specified sepsis Problem details: Infected LEFT foot plantar ulcer with neuropathy Status: Acute Current Visit: Yes (2) Foot ulcer, left Problem details: Assessment:Neuropathic LEFT foot plantar ulcer with CSSSI. Plan: See wound care orders. For OR debridement HOLGER Status: Acute Current Visit: No - Time Spent With Patient Total time spent is greater than 50% in coordination of care (as documented) at patient's floor/unit and/or counseling patient: Assessment: Sepsis. CSSSI Left foot. Plan: OR debridement and tissue c/s Procedure scheduled for today. Spoke with patient at length, R/B/C/A discussed. All Qs answered. Patient understands and agrees. less than 15 minutes
[2018-10-15] MEDS ORDERED: MUPIROCIN OINT 2% 22GM TOPICAL SCH (09:00)
[2018-10-15] MEDS ORDERED: VANCOMYCIN 2,000 MG in 0.9 % SODIUM CHLORIDE 500 ML IV SCH (09:00)
[2018-10-15] MEDS: LACTOBACILLUS 1 CAPSULE PO SCH ×2 (09:09→20:56)
[2018-10-15] MEDS: VANCOMYCIN 1,500 MG in 0.9 % SODIUM CHLORIDE 500 ML IV SCH (09:30)
[2018-10-15] MEDS: MUPIROCIN OINT 2% 22GM TOPICAL SCH (12:18)
[2018-10-15] MEDS ORDERED: GENTAMICIN SULFATE 80 MG, CLINDAMYCIN 600 MG, BACITRACIN 50,000 UNIT in 0.9 % SODIUM CH... IRR ONE (16:30)
[2018-10-15] MEDS ORDERED: PROPOFOL 200 MG/20 ML VIAL IV ONE (16:45)
[2018-10-15] MEDS ORDERED: GLYCOPYRROLATE 0.2 MG/ML VIAL IV ONE (16:45)
[2018-10-15] MEDS ORDERED: LIDOCAINE HCL/PF 100 MG/5 ML SYRINGE IV ONE (16:45)
[2018-10-15] MEDS ORDERED: fentaNYL 100 MCG/2 ML VIAL IV ONE (16:45)
[2018-10-15] MEDS ORDERED: MIDAZOLAM 2 MG/2 ML VIAL IV ONE (16:45)
[2018-10-15] MEDS ORDERED: ONDANSETRON 4 MG/2 ML VIAL IV ONE (16:45)
[2018-10-15] MEDS ORDERED: KETAMINE 100 MG/ML ML IV ONE (16:45)
[2018-10-15] MEDS ORDERED: ACETAMINOPHEN 1,000 MG/100 ML BOTTLE IV ONE (17:13)
[2018-10-15] MEDS ORDERED: IPRATROPIUM/ALBUTEROL 3 ML AMPUL.NEB NEB PRN (17:13)
[2018-10-15] MEDS ORDERED: HYDROmorphone 2 MG/ML VIAL IV PRN (17:13)
[2018-10-15] MEDS ORDERED: KETOROLAC 30 MG/ML VIAL IV PRN (17:13)
[2018-10-15] MEDS ORDERED: MEPERIDINE 25 MG/ML SYRINGE IV PRN (17:13)
[2018-10-15] MEDS ORDERED: ONDANSETRON 4 MG/2 ML VIAL IV PRN ×2 (17:13→18:23)
[2018-10-15] MEDS ORDERED: fentaNYL 100 MCG/2 ML VIAL IV PRN (17:13)
[2018-10-15] MEDS ORDERED: LACTATED RINGERS 1,000 ML IV SCH (17:15)
--- NOTE | 2018-10-15 17:26 | Brief Operative Note ---
Date of procedure: 10/15/18 Pre-op diagnosis: Sepsis. Neuropathic plantar ulcer Left foot Post-op diagnosis: same Procedure: Excisional Debridement, Deep tissue biopsies, culture and BONE biopsy to r/o osteo Grafts/Implants: No Anesthesia: GLMA Findings: Thru and thru penetrating wound from plantar aspect left anterior lateral fot to dorsal foot at site of 4 th toe amputation. Complications: none Surgeon: Ney Burr Estimated blood loss (cc): 30 Specimens Removed/Pathology: other Condition: stable Disposition: PACU (Procedure well tolerated.)
[2018-10-15] MEDS ORDERED: VANCOMYCIN PER PHARMACY IV SCH (18:23)
[2018-10-15] MEDS ORDERED: ACETAMINOPHEN 325 MG TABLET PO PRN (18:23)
[2018-10-15] MEDS: VANCOMYCIN 2,000 MG in 0.9 % SODIUM CHLORIDE 500 ML IV SCH (20:55)
[2018-10-15] MEDS: HEPARIN 5,000 UNIT/ML VIAL SQ SCH (20:56)
[2018-10-15] MEDS ORDERED: HEPARIN 5,000 UNIT/ML VIAL SQ SCH (21:00)
[2018-10-16] MEDS: HYDROcodone/APAP 5/325MG TABLET PO PRN ×5 (04:39→21:12)
[2018-10-16] MEDS: PIPERACILLIN SODIUM/TAZOBACTAM 3.375 GM in DEXTROSE 5% IN WATER 50 ML IV SCH ×4 (05:31→23:15)
[2018-10-16 05:46] LABS: Basophils # (Auto) 0 K/mcL (0.0-0.3); Basophils % (Auto) 0.2 % (0.0-2.0); Eosinophils # (Auto) 0.3 K/mcL (0.0-0.7); Eosinophils % (Auto) 3.2 % (0.0-7.0); Granulocytes % (Auto) 57.2 % (38.0-78.0); Lymphocytes # (Auto) 2.2 K/mcL (1.5-4.8); Lymphocytes % (Auto) 26.4 % (15.5-49.0); Mean Cell Volume 88.6 fL (80.0-100.0); Mean Corpuscular HGB Conc 33.1 g/dL (31.0-36.0); Monocytes # (Auto) 1.1 K/mcL (0.1-0.9); Platelet Count 351 K/mcL (140-440); RBC 4.03 M/mcL (4.50-5.90); Red Cell Distribution Width 13.6 % (11.5-14.5)
[2018-10-16] MEDS: 0.9 % SODIUM CHLORIDE 10 ML SYRINGE IV SCH ×3 (06:14→21:12)
[2018-10-16 06:15] LABS: Estimated Average Glucose(eAG) 97 mg/dL
[2018-10-16 06:19] LABS: Blood Urea Nitrogen 8 mg/dl (6-20)
[2018-10-16 06:23] LABS: Prealbumin 13.9 mg/dl (20-40)
--- NOTE | 2018-10-16 07:05 | Internal Med Progress Note ---
Medical - PN: Subj Patient information: Note initiated : 10/16/18 at 7:03 am Service Date, if different from initiated Date: [] Patient: Kel Hernandez 53 y/o M admitted on 10/14/18 for Left Foot Redness, Swelling, Infection. Chief Complaint: [] Interval history: Mr. Hernandez is a 53 year old M presents to the ED with left distal foot wound with swelling tenderness erythema. He recently was diagnosed on Monday in the ED with influenza and feels he is improving from that standpoint. On Wednesdays when he realized he had a "hole in his foot" but there is no swelling pain erythema around it at that time. Is now feeling better from a flu aspect. However Monday his ankle started swelling and become puffy and had some redness around his foot and then this morning he has significant erythema and swelling of his foot and tenderness and some drainage over the fourth toe amputation. He said fevers chills headache. Some nausea but no vomiting and some diarrhea a few days ago. In the ED there is a imaging done which was concerning for fasciitis with some gas. Dr. Burr was contacted. She was started on IV antibiotics. 10/15 No new complaints. No overnight events. Ankle wrapped in dressing. Plan for OR I&D today with Dr. Burr. 10/16 Headache overnight. Left foot pain post I&D. No other complaints. Review of Systems: denies fever/chills/nausea/vomiting/chest or abdominal p ain/cough/dyspnea/diarrhea. Otherwise see above. - Constitutional Vitals: Vital Signs Temp Pulse Resp BP Pulse Ox 98.3 F 73 16 110/70 94 10/16/18 04:39 10/16/18 04:39 10/16/18 04:39 10/16/18 04:39 10/16/18 04:39 Period Temp Pulse Resp BP Sys/Sweet Pulse Ox Last 24 Hr 97.5 F-98.6 F 67-90 10-18 106-135/62-80 94-100 Intake and Output 10/15/18 10/16/18 10/16/18 21:59 05:59 13:59 Intake Total 650 500 Output Total 275 275 Balance 375 225 Weight 93.894 kg Intake & Output: Intake & Output 05/10/16/18 10/16/18 21:59 05:59 13:59 Intake Total 650 500 Output Total 275 275 Balance 375 225 Weight 93.894 kg Intake: IV 50 50 Zosyn 3.375 gm In Dextrose 5% 50 50 in Water 50 ml @ 100 mls/hr IV Q6H [facility] Rx#:[id number] Oral 600 450 Output: Void Amount 275 275 Other: # Voids 1 Exam: General: Alert, Awake, No acute Distress Eyes/N/T: EOMI, , Head/Neck: neck supple, CV: RRR, No murmurs, Pulm: Clear b/l, no wheezing/rhonchi/rales Abd: soft, nontender, +BS x4 Ext: no clubbing/cyanosis/edema. Left foot with dressings in place. Neuro: Alert, moves all extremities, skin: warm/dry Medical - PN: Obj Da - Labs CBC & Chem 7: 10/16/18 04:38 10/16/18 04:38 Labs: Abnormal Lab Results 10/16/18 10/16/18 10/16/18 04:38 04:38 04:38 RBC 4.03 L Hgb 11.8 L Hct 35.7 L MPV 7.1 L [place] % (Auto) 13.0 H [place] # (Auto) 1.1 H ESR Glucose Calcium 8.5 L C-Reactive Protein Prealbumin 13.9 L 10/15/18 10/15/18 10/14/18 04:15 04:15 07:25 RBC 4.13 L Hgb 12.0 L Hct 36.9 L MPV [place] % (Auto) 13.2 H [place] # (Auto) 1.4 H ESR Glucose Calcium 8.4 L C-Reactive Protein 8.8 H 16.5 H Prealbumin 10/14/18 10/14/18 07:25 07:25 RBC Hgb Hct MPV [place] % (Auto) [place] # (Auto) ESR 72 H Glucose 109 H Calcium C-Reactive Protein Prealbumin Meds: Medications Acetaminophen (Tylenol) 650 mg PO Q6HP PRN PRN Reason: PAIN/FEVER > 101 Hydrocodone Bitart/Acetaminophen ([place] 5/325mg) 1 tab PO Q4HP PRN PRN Reason: PAIN LEVEL 3-6 Last Admin: 10/16/18 04:39 Dose: 1 tab Documented by: Heparin Sodium (Porcine) (Heparin) 5,000 unit SQ Q12 [facility] Last Admin: 10/15/18 20:56 Dose: 5,000 unit Documented by: Piperacillin Sod/Tazobactam (Sod 3.375 gm/ Dextrose) 50 mls @ 100 mls/hr IV Q6H [facility]; Protocol Last Admin: 10/16/18 05:31 Dose: 100 mls/hr Documented by: Vancomycin HCl 2,000 mg/ (Sodium Chloride) 500 mls @ 250 mls/hr IV Q12H [facility] Last Admin: 10/15/18 20:55 Dose: 250 mls/hr Documented by: Lactobacillus Rhamnosus (Culturelle) 1 cap PO BID [facility] Last Admin: 10/15/18 20:56 Dose: 1 cap Documented by: Morphine Sulfate (Morphine) 1 - 2 mg IV Q4HP PRN PRN Reason: PAIN LEVEL > 6 Ondansetron HCl (Zofran) 4 mg IV Q6HP PRN PRN Reason: Nausea And Vomiting Sodium Chloride (Saline Flush) 10 ml IV Q8 [facility] Last Admin: 10/16/18 06:14 Dose: 10 ml Documented by: Vancomycin HCl (Vancomycin Per Pharmacy) 1 order IV UD [facility]; Protocol Medical - PN: A/P - Time Spent With Patient Total time spent is greater than 50% in coordination of care (as documented) at patient's floor/unit and/or counseling patient: - Narrative A/P Narrative: A: *Left foot wound infection/cellulitis: s/p I&D (10/15) -CT showing gas over site of wound -CRP improving -WC prelim growing staph aureus and GNB *Peripheral neuropathy: Unknown etiology, has seen Dr. Connolly for angiography in past *History of foot wounds: Has seen Dr. Burr in the past *Influenza: Currently undergoing treatment, finished * P: -vanc/zosyn, clindamycin brief course -Dr. Burr following, surgical biopsies pending -wound per Dr. Burr -pending final WC to determine antibiotic regimen -wound care - -ppx: Heparin
[2018-10-16] MEDS: VANCOMYCIN 2,000 MG in 0.9 % SODIUM CHLORIDE 500 ML IV SCH (09:31)
--- NOTE | 2018-10-16 09:32 | Operative Note ---
DATE OF OPERATION: 10/15/2018 PREOPERATIVE DIAGNOSES: Sepsis syndrome. Complicated skin and skin structure infection. Infected amputation site of left fourth toe with proximal cellulitis extending up to the ankle and lower half of the leg. POSTOPERATIVE DIAGNOSES: Sepsis syndrome. Complicated skin and skin structure infection. Infected amputation site of left fourth toe with a proximal cellulitis extending up to the ankle and lower half of the leg. OPERATION: Excisional debridement, deep tissue biopsies and cultures. Biopsy of the exposed bone to rule out osteomyelitis. SURGEON: Ney Burr M.D. PROCEDURE NOTE: After obtaining informed consent, the patient was taken to the operating room and anesthetized uneventfully in supine position using laryngeal mask airway. Timeout was called. Intravenous antibiotics were given. The left leg was widely cleaned, prepped and draped in a standard fashion. First, the toes were and #15 scalpel blade was used to cut out the entire area of necrotic tissue. This had extended up to the underlying musculature and exposed bone. Tangential excision was carried out, and all the nonviable tissue was removed, and the loculated collections were opened. A bone biopsy was obtained with a bone biopsy punch. Hemostasis achieved with suture ligation and electrocoagulation. We packed this wound open with Xeroform gauze reinforced with 4 x 4 gauze, Kerlix bandage, Coban, and Balbir. Estimated blood loss was about 20 mL. Count of swabs, instruments and needles was reported to be correct. He recovered from anesthesia uneventfully. He was taken to in stable condition. VD:luz maria Job ID: [id number] Doc ID: [id number] Ney Burr MD
[2018-10-16] MEDS: LACTOBACILLUS 1 CAPSULE PO SCH ×2 (09:33→21:11)
[2018-10-16] MEDS: HEPARIN 5,000 UNIT/ML VIAL SQ SCH ×2 (09:33→21:11)
--- NOTE | 2018-10-16 16:23 | Infectious Disease Consult ---
History of Present Illness Patient information: Note initiated : 10/16/18 at 4:05 pm Service Date, if different from initiated Date: [] Patient: Kel Hernandez 53 y/o M admitted on 10/14/18 for Left Foot Redness, Swelling, Infection. 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 Patient reports that he was recently diagnosed on with influenza last week and prescribed Tamiflu. Around 3 days before admission, he noticed that he had a "hole in his foot" which was followed by swelling, redness and pain in the foot and subsequently spreading to his left leg in 2 days. Patient presented to ED for those concerns. He endorsed having fever of around [id number] and chills. He does not remember how he got the wound in the first place, does not remember stepping on something sharp or being hit or bitten by anything. He does walk without shoes around the house just wearing socks often. Also mentions that at work sometimes he would have a stone or a small rock in his shoe when he would not know about it because of neuropathy. He has a dog but denies any wound contact with the dog. In the ED, patient's vital signs were unremarkable. White blood cell count was 10.3, ESR of 72, venous lactate of 1, creatinine 0.8. CT of the foot showed: "Moderate cellulitis/fasciitis in the forefoot particularly the fourth and fifth rays. Focal gas seen in the subdermal soft tissues. Gas may been generated from a gas-forming organism or be atmospheric. There is no specific evidence for osteomyelitis or septic arthritis." Patient had blood cultures, superficial wound cultures sent. He was admitted and started on IV vancomycin and IV Zosyn. Patient underwent "excisional debridement, Deep tissue biopsies, culture and BONE biopsy to r/o osteo" on 10/[address] Burr. Wound cultures taken at admission grew MSSA and pansensitive E. coli. Operative cultures have been growing gram-positive cocci, light growth with ID and sensitivities to follow in 1-2 days. Pt reports feeling better after surgery and being on antibiotics. 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 doesnot smoke Medications and Allergies Home Medications Medication Instructions Recorded Confirmed Type Oseltamivir Phosphate [Tamiflu] 75 mg PO BID #10 cap 10/10/18 10/14/18 Rx Allergies Allergy/AdvReac Type Severity Reaction Status Date / Time No Known Drug Allergies Allergy Verified 10/14/18 07:18 Physical Examination Vital signs: Temp Pulse Resp BP Pulse Ox 37.0 C 79 16 128/79 96 10/16/18 12:00 10/16/18 12:00 10/16/18 12:00 10/16/18 12:00 10/16/18 12:00 General appearance: no acute distress Eyes pulmonary: nonicteric ENT: other (no thrush, ok oral hygiene) Auscultation: bilateral: clear Cardiovascular: other (s1 s2 normal, no m/r/g) Gastrointestinal: normoactive bowel sounds, soft, non-tender Extremities: other (rt foot is wrapped in dressing. Rt leg is still warm, no redness, mildly swollen compared to the right side. no discoloration or open wounds over the leg. Rt leg with no edema) Results - Laboratory Findings CBC and BMP: 10/17/18 04:38 10/17/18 04:38 Abnormal lab findings: Abnormal Labs 10/14/18 10/14/18 10/14/18 07:25 07:25 07:25 RBC Hgb Hct MPV [place] % (Auto) [place] # (Auto) ESR 72 H Glucose 109 H Calcium C-Reactive Protein 16.5 H Prealbumin 10/15/18 10/15/18 10/16/18 04:15 04:15 04:38 RBC 4.13 L 4.03 L Hgb 12.0 L 11.8 L Hct 36.9 L 35.7 L MPV 7.1 L [place] % (Auto) 13.2 H 13.0 H [place] # (Auto) 1.4 H 1.1 H ESR Glucose Calcium 8.4 L C-Reactive Protein 8.8 H Prealbumin 10/16/18 10/16/18 04:38 04:38 RBC Hgb Hct MPV [place] % (Auto) [place] # (Auto) ESR Glucose Calcium 8.5 L C-Reactive Protein Prealbumin 13.9 L Microbiology: Microbiology 10/15/18 17:01 Bone - Foot Gram Stain - Final 10/15/18 17:01 Bone - Foot Gram Stain - Final 10/15/18 17:01 Bone - Foot Anaerobic Culture - Preliminary 10/15/18 17:00 Foot - Left Gram Stain - Final 10/15/18 17:00 Foot - Left Gram Stain - Final 10/15/18 17:00 Foot - Left Anaerobic Culture - Preliminary 10/15/18 17:00 Foot - Left Gram Stain - Final 10/15/18 17:00 Foot - Left Wound Culture - Preliminary Gram positive cocci 10/14/18 09:00 Foot - Left Gram Stain - Final 10/14/18 09:00 Foot - Left Wound Culture - Final Staphylococcus aureus Escherichia coli 10/14/18 07:25 Blood Blood Culture - Preliminary 10/14/18 07:35 Blood Blood Culture - Preliminary Assessment and Plan - Narrative A/P Narrative: A: 1. Left foot penetrating wound with moderate cellulitis/fasciitis in the forefoot particularly the fourth and fifth rays. Focal gas seen in the subdermal soft tissues (likely because it was an open wound) - superf Cx growing MSSA and queen sens Ecoli - Op tissue Cx growing GPC (ID and sensi pending) - Bone Cx NGTD 2. No sepsis: qSOFA score 0 Recommendations: - As superficial cultures growing MSSA which has a high predictive value of being isolated from the deeper/bone cultures, IV vancomycin can be stopped Continue IV Zosyn 3.375 g every 6 hours for now Await final operative cultures. will make further de-escalation accordingly will check a MRSA nasal swab. If positive will consider decolonization to prevent future infections Patient counseled extensively not to walk barefoot, seeing neurologist to determine the cause of his neuropathy. Anticipate around 4 to 6 weeks of antibiotics based on operative cultures will follow Brody Hutchison MD Infectious disease
--- NOTE | 2018-10-16 17:03 | General Surgery Progress Note ---
Subjective Narrative: Note initiated : 10/16/18 at 5:00 pm Service Date, if different from initiated Date: [] Patient: Kel Hernandez 53 y/o M admitted on 10/14/18 for Left Foot Redness, Swelling, Infection. Chief Complaint: []Patient seen with Dr. juan jose LOPEZ and Avril RN In patient wound nurse . Post operative dressings CDI. Preliminary wound c/s growing GPC. Sensitivity pending. Objective Temp Pulse Resp BP Pulse Ox 98.9 F 77 16 121/70 95 10/16/18 16:00 10/16/18 16:00 10/16/18 16:00 10/16/18 16:00 10/16/18 16:00 AVSS. Lab results reviewed. No changes KATIE. Left foot dressings CDI. Toes PWD. Patient c/o Pain at wound site. One Percocet NOT helping. - Additional Data Intake & Output - Last 24 hours: Intake & Output 10/14/18 10/15/18 10/16/18 10/17/18 05:59 05:59 05:59 05:59 Intake Total 3533 1874 1900 Output Total 575 550 Balance 2958 1324 1900 Weight 186 lb 207 lb - Labs 10/16/18 04:38 10/16/18 04:38 Diabetes panel 10/16/18 10/16/18 Range/Units 04:38 04:38 Sodium 141 (133-145) mmol/L Potassium 4.6 (3.3-5.1) mmol/L Chloride 107 (96-108) mmol/L Carbon Dioxide 25 (22-30) mmol/L BUN 8 (6-20) mg/dl Creatinine 0.8 (0.7-1.2) mg/dl Glucose 99 (70-105) mg/dL Hemoglobin A1c 5.0 (4.0-6.0) % HGB Calcium 8.5 L (8.6-10.4) mg/dl Thyroid panel 10/16/18 Range/Units 04:38 TSH 1.57 (0.27-5.01) uIU/ml Calcium panel 10/16/18 Range/Units 04:38 Calcium 8.5 L (8.6-10.4) mg/dl Pituitary panel 10/16/18 10/16/18 Range/Units 04:38 04:38 Sodium 141 (133-145) mmol/L Potassium 4.6 (3.3-5.1) mmol/L Chloride 107 (96-108) mmol/L Carbon Dioxide 25 (22-30) mmol/L BUN 8 (6-20) mg/dl Creatinine 0.8 (0.7-1.2) mg/dl Glucose 99 (70-105) mg/dL Calcium 8.5 L (8.6-10.4) mg/dl TSH 1.57 (0.27-5.01) uIU/ml Adrenal panel 10/16/18 Range/Units 04:38 Sodium 141 (133-145) mmol/L Potassium 4.6 (3.3-5.1) mmol/L Chloride 107 (96-108) mmol/L Carbon Dioxide 25 (22-30) mmol/L BUN 8 (6-20) mg/dl Creatinine 0.8 (0.7-1.2) mg/dl Glucose 99 (70-105) mg/dL Calcium 8.5 L (8.6-10.4) mg/dl Assessment and Plan (1) Other specified sepsis Problem details: Infected LEFT foot plantar ulcer with neuropathy Status: Acute Current Visit: Yes (2) Foot ulcer, left Problem details: Assessment:Neuropathic LEFT foot plantar ulcer with CSSSI. Plan: See wound care orders. For OR debridement HOLGER Status: Acute Current Visit: No - Narrative A/P Narrative: Assessment: Post operative pain. DFU with Sepsis. S/P OR debridement. Plan: Change of dressing tomorrow. Filled out paperwork for [employer] Wound VAC. Await ID recommendations reg. Abx. Anticipate D/C in 1-2 days. Will decide about adjuvant HBOT as out patient. F/U at wound care center. - Time Spent With Patient Total time spent is greater than 50% in coordination of care (as documented) at patient's floor/unit and/or counseling patient: 25 - 35 minutes
[2018-10-16] MEDS: DOCUSATE SODIUM 100 MG CAPSULE PO SCH (21:11)
[2018-10-17] MEDS: HYDROcodone/APAP 5/325MG TABLET PO PRN ×3 (04:25→13:35)
[2018-10-17] MEDS: PIPERACILLIN SODIUM/TAZOBACTAM 3.375 GM in DEXTROSE 5% IN WATER 50 ML IV SCH ×2 (05:14→11:58)
[2018-10-17] MEDS: 0.9 % SODIUM CHLORIDE 10 ML SYRINGE IV SCH ×3 (05:14→21:31)
[2018-10-17 06:22] LABS: Basophils # (Auto) 0 K/mcL (0.0-0.3); Basophils % (Auto) 0.4 % (0.0-2.0); Eosinophils # (Auto) 0.3 K/mcL (0.0-0.7); Eosinophils % (Auto) 3.4 % (0.0-7.0); Granulocytes % (Auto) 54.7 % (38.0-78.0); Lymphocytes # (Auto) 2.3 K/mcL (1.5-4.8); Lymphocytes % (Auto) 28.5 % (15.5-49.0); Mean Cell Volume 89.2 fL (80.0-100.0); Mean Corpuscular HGB Conc 32.3 g/dL (31.0-36.0); Monocytes # (Auto) 1.1 K/mcL (0.1-0.9); Platelet Count 406 K/mcL (140-440); RBC 4.25 M/mcL (4.50-5.90); Red Cell Distribution Width 13.8 % (11.5-14.5)
[2018-10-17 06:34] LABS: ALT/SGPT 23 U/l (0-40); Albumin 3.5 gm/dL (3.2-5.2); Albumin/Globulin Ratio 1.1 (1.0-2.3); Alkaline Phosphatase 71 U/L (39-117); Bilirubin,Direct < 0.2 mg/dL (0.0-0.3); Blood Urea Nitrogen 9 mg/dl (6-20); Gamma Glutamyl Transpeptidase 33 U/L (8-61)
[2018-10-17] MEDS: DOCUSATE SODIUM 100 MG CAPSULE PO SCH ×2 (09:23→21:29)
[2018-10-17] MEDS: LACTOBACILLUS 1 CAPSULE PO SCH ×2 (09:23→21:29)
[2018-10-17] MEDS: HEPARIN 5,000 UNIT/ML VIAL SQ SCH ×2 (09:23→21:30)
--- NOTE | 2018-10-17 12:33 | Infectious Disease Prog Note ---
Subjective Patient information: Note initiated : 10/17/18 at 12:31 pm Service Date, if different from initiated Date: [] Patient: Kel Hernandez 53 y/o M admitted on 10/14/18 for Left Foot Redness, Swelling, Infection. Chief Complaint: [] Interval history: Pt doing well. Denied any fevers, chills, n/v, diarrhea. Tolerating antibiotics without any side effects. Shared with him the culture data and plan for home going antibiotics would be finalized tomorrow. Pt voiced understanding. Objective Objective Narrative: ao x 3, in nad chest cta s1 s2 normal bs ++, nttd Left foot: surgical site has changes from surgery yesterday (blood, exposed soft tissue), no pus. The redness has improved remarkably. Left leg temp is similar to left leg. No discoloration. Pt able to wiggle his toes. - Vital Signs Vital signs: Vital Signs Temp Pulse Resp BP BP Pulse Ox 10/17/18 07:42 37.0 C 63 18 121/76 96 10/17/18 04:20 36.9 C 65 14 126/80 97 10/16/18 23:08 36.9 C 63 14 117/74 95 10/16/18 18:30 36.8 C 92 H 16 118/74 94 10/16/18 16:00 37.2 C 77 16 121/70 95 Intake and Output 10/16/18 10/17/18 10/17/18 21:59 05:59 13:59 Intake Total 1400 700 Output Total 250 950 Balance 1150 -250 Intake: IV 600 100 Zosyn 3.375 gm In Dextrose 5% 100 100 in Water 50 ml @ 100 mls/hr IV Q6H [facility] Rx#:[id number] Vancomycin 2,000 mg In Sodium 500 Chloride 0.9% 500 ml @ 250 mls/ hr IV Q12H [facility] Rx#:[id number] Oral 800 600 Output: Void Amount 250 950 Other: Urine Appearance Clear Clear Urine Color Dark Yellow Dark Yellow Urine Odor Normal Normal Weight 93.695 kg Intake & Output: Intake & Output 10/16/18 10/17/18 10/17/18 21:59 05:59 13:59 Intake Total 1400 700 Output Total 250 950 Balance 1150 -250 Weight 93.695 kg Intake: IV 600 100 Zosyn 3.375 gm In Dextrose 5% 100 100 in Water 50 ml @ 100 mls/hr IV Q6H [facility] Rx#:[id number] Vancomycin 2,000 mg In Sodium 500 Chloride 0.9% 500 ml @ 250 mls/ hr IV Q12H [facility] Rx#:[id number] Oral 800 600 Output: Void Amount 250 950 Other: Urine Appearance Clear Clear Urine Color Dark Yellow Dark Yellow Urine Odor Normal Normal - Lab 10/17/18 04:38 10/17/18 04:38 Most recent lab results Calcium 8.7 mg/dl (8.6-10.4) 10/17/18 04:38 Phosphorus 3.3 mg/dL (2.7-4.5) 10/17/18 04:38 Magnesium 2.5 mg/dL (1.6-2.5) 10/17/18 04:38 Microbiology 10/15/18 17:01 Aspirate - Foot Gram Stain - Final 10/15/18 17:01 Aspirate - Foot Body Fluid Culture - Final 10/15/18 17:00 Foot - Left Gram Stain - Final 10/15/18 17:00 Foot - Left Gram Stain - Final 10/15/18 17:00 Foot - Left Anaerobic Culture - Preliminary 10/15/18 17:00 Foot - Left Gram Stain - Final 10/15/18 17:00 Foot - Left Wound Culture - Preliminary Staphylococcus aureus 10/15/18 17:01 Bone - Foot Gram Stain - Final 10/15/18 17:01 Bone - Foot Gram Stain - Final 10/15/18 17:01 Bone - Foot Anaerobic Culture - Preliminary 10/14/18 07:25 Blood Blood Culture - Preliminary 10/14/18 07:35 Blood Blood Culture - Preliminary 10/16/18 17:22 Nose MRSA (PCR) - Final 10/14/18 09:00 Foot - Left Gram Stain - Final 10/14/18 09:00 Foot - Left Wound Culture - Final Staphylococcus aureus Escherichia coli Medications Active Medications: Acetaminophen (Tylenol) 650 mg PO Q6HP PRN PRN Reason: PAIN/FEVER > 101 Hydrocodone Bitart/Acetaminophen ([place] 5/325mg) 1 - 2 tab PO Q4HP PRN PRN Reason: PAIN LEVEL 3-6 Last Admin: 10/17/18 09:23 Dose: 2 tab Documented by: Admin: 10/17/18 04:25 Dose: 2 tab Documented by: Admin: 10/16/18 21:12 Dose: 2 tab Documented by: Admin: 10/16/18 17:12 Dose: 2 tab Documented by: CORINNA Docusate Sodium (Colace) 100 mg PO BID [facility] Last Admin: 10/17/18 09:23 Dose: 100 mg Documented by: Admin: 10/16/18 21:11 Dose: 100 mg Documented by: JAMES Heparin Sodium (Porcine) (Heparin) 5,000 unit SQ Q12 [facility] Last Admin: 10/17/18 09:23 Dose: 5,000 unit Documented by: Admin: 10/16/18 21:11 Dose: 5,000 unit Documented by: Admin: 10/16/18 09:33 Dose: 5,000 unit Documented by: Admin: 10/15/18 20:56 Dose: 5,000 unit Documented by: SHARMILA Piperacillin Sod/Tazobactam (Sod 3.375 gm/ Dextrose) 50 mls @ 100 mls/hr IV Q6H [facility]; Protocol Last Admin: 10/17/18 11:58 Dose: 100 mls/hr Documented by: Infusion: 10/17/18 05:44 Dose: 100 mls/hr Documented by: Admin: 10/17/18 05:14 Dose: 100 mls/hr Documented by: Infusion: 10/16/18 23:57 Dose: 0 mls/hr Documented by: Admin: 10/16/18 23:15 Dose: 100 mls/hr Documented by: Infusion: 10/16/18 18:45 Dose: 0 mls/hr Documented by: Admin: 10/16/18 18:00 Dose: 100 mls/hr Documented by: Infusion: 10/16/18 16:03 Dose: 0 mls/hr Documented by: Admin: 10/16/18 12:07 Dose: 100 mls/hr Documented by: Infusion: 10/16/18 07:50 Dose: 0 mls/hr Documented by: Admin: 10/16/18 05:31 Dose: 100 mls/hr Documented by: Infusion: 10/16/18 00:23 Dose: 100 mls/hr Documented by: Admin: 10/15/18 23:53 Dose: 100 mls/hr Documented by: SHARMILA Lactobacillus Rhamnosus (Culturelle) 1 cap PO BID [facility] Last Admin: 10/17/18 09:23 Dose: 1 cap Documented by: Admin: 10/16/18 21:11 Dose: 1 cap Documented by: Admin: 10/16/18 09:33 Dose: 1 cap Documented by: Admin: 10/15/18 20:56 Dose: 1 cap Documented by: SHARMILA Morphine Sulfate (Morphine) 1 - 2 mg IV Q4HP PRN PRN Reason: PAIN LEVEL > 6 Last Admin: 10/16/18 23:14 Dose: 1 mg Documented by: Admin: 10/16/18 13:37 Dose: 1 mg Documented by: Admin: 10/16/18 12:48 Dose: 1 mg Documented by: CORINNA Ondansetron HCl (Zofran) 4 mg IV Q6HP PRN PRN Reason: Nausea And Vomiting Sodium Chloride (Saline Flush) 10 ml IV Q8 [facility] Admin: 10/17/18 05:14 Dose: 10 ml Documented by: Admin: 10/16/18 21:12 Dose: 10 ml Documented by: Admin: 10/16/18 12:40 Dose: 10 ml Documented by: Admin: 10/16/18 06:14 Dose: 10 ml Documented by: Admin: 10/15/18 20:56 Dose: 10 ml Documented by: SHARMILA Assessment and Plan - Narrative A/P Narrative: A: 1. Left foot penetrating wound with moderate cellulitis/fasciitis in the forefoot particularly the fourth and fifth rays. Focal gas seen in the subdermal soft tissues (likely because it was an open wound) - superf Cx growing MSSA and queen sens Ecoli - Op tissue Cx growing Staph aureus (sensi pending) - Bone Cx NGTD - negative MRSA nasal swab 2. No sepsis: qSOFA score 0 Recommendations: - As superficial cultures growing MSSA which has a high predictive value of being isolated from the deeper/bone cultures, IV vancomycin can be stopped Stop IV Zosyn - will start IV Cefazolin 2 gm q8 hrs, day 2 [counting from his day of surgery] - will recommend PICC line placement. Patient counseled extensively not to walk barefoot, seeing neurologist to determine the cause of his neuropathy. Anticipate around 4 to 6 weeks of antibiotics based on operative cultures (bone culture positive or not by tomorrow) will follow Brody Hutchison MD Infectious disease
[2018-10-17] MEDS: ceFAZolin 1 GM VIAL IV SCH ×2 (13:16→21:30)
--- NOTE | 2018-10-17 13:38 | General Surgery Progress Note ---
Subjective Patient reports: no new complaints, other (Keen to get well and go home soon. ) Narrative: Note initiated : 10/17/18 at 1:35 pm Service Date, if different from initiated Date: [] Patient: Kel Hernandez 53 y/o M admitted on 10/14/18 for Left Foot Redness, Swelling, Infection. Chief Complaint: [] Objective Temp Pulse Resp BP Pulse Ox 97.9 F 66 18 107/73 95 10/17/18 12:00 10/17/18 12:00 10/17/18 12:00 10/17/18 12:00 10/17/18 12:00 AVSS. No changes KATIE. L/E. Surgical site wound; Clean and stable. Improving. No odor, No drainage. No residual necroses. NV intact. FROM ankle / toes. Wound VAC ready Labs / cultures checked. - Additional Data Intake & Output - Last 24 hours: Intake & Output 10/15/18 10/16/18 10/17/18 10/18/18 05:59 05:59 05:59 05:59 Intake Total 3533 1874 2650 Output Total 705 733 7182 Balance 2958 1324 1450 Weight 186 lb 207 lb 206 lb 9 oz - Labs 10/17/18 04:38 10/17/18 04:38 Diabetes panel 10/17/18 Range/Units 04:38 Sodium 143 (133-145) mmol/L Potassium 4.5 (3.3-5.1) mmol/L Chloride 106 (96-108) mmol/L Carbon Dioxide 27 (22-30) mmol/L BUN 9 (6-20) mg/dl Creatinine 0.8 (0.7-1.2) mg/dl Glucose 90 (70-105) mg/dL Calcium 8.7 (8.6-10.4) mg/dl AST 14 (0-37) U/l ALT 23 (0-40) U/l Alkaline Phosphatase 71 (39-117) U/L Total Protein 6.8 (5.9-8.4) gm/dL Albumin 3.5 (3.2-5.2) gm/dL Triglycerides 157 H (<150) mg/dl Calcium panel 10/17/18 Range/Units 04:38 Calcium 8.7 (8.6-10.4) mg/dl Phosphorus 3.3 (2.7-4.5) mg/dL Albumin 3.5 (3.2-5.2) gm/dL Pituitary panel 10/17/18 Range/Units 04:38 Sodium 143 (133-145) mmol/L Potassium 4.5 (3.3-5.1) mmol/L Chloride 106 (96-108) mmol/L Carbon Dioxide 27 (22-30) mmol/L BUN 9 (6-20) mg/dl Creatinine 0.8 (0.7-1.2) mg/dl Glucose 90 (70-105) mg/dL Calcium 8.7 (8.6-10.4) mg/dl Adrenal panel 10/17/18 Range/Units 04:38 Sodium 143 (133-145) mmol/L Potassium 4.5 (3.3-5.1) mmol/L Chloride 106 (96-108) mmol/L Carbon Dioxide 27 (22-30) mmol/L BUN 9 (6-20) mg/dl Creatinine 0.8 (0.7-1.2) mg/dl Glucose 90 (70-105) mg/dL Calcium 8.7 (8.6-10.4) mg/dl Total Bilirubin 0.4 (0.0-1.0) mg/dL AST 14 (0-37) U/l ALT 23 (0-40) U/l Alkaline Phosphatase 71 (39-117) U/L Total Protein 6.8 (5.9-8.4) gm/dL Albumin 3.5 (3.2-5.2) gm/dL Assessment and Plan (1) Other specified sepsis Problem details: Infected LEFT foot plantar ulcer with neuropathy Status: Acute Current Visit: Yes (2) Foot ulcer, left Problem details: Assessment:Neuropathic LEFT foot plantar ulcer with CSSSI. Plan: See wound care orders. For OR debridement HOLGER Status: Acute Current Visit: No - Time Spent With Patient Total time spent is greater than 50% in coordination of care (as documented) at patient's floor/unit and/or counseling patient: Assessment: Satisfactory post surgical progress. Source of sepsis adequately treated. Patient seen and wound examined with Avril BOYD and Dr. Hutchison, ID Plan: Wound VAC and Wound Care orders per Avril BOYD. Antibiotic Management per ID. Anticipate D/C soon and f/u in wound clinic. 25 - 35 minutes
--- NOTE | 2018-10-17 14:58 | Internal Med Progress Note ---
Medical - PN: Subj Patient information: Note initiated : 10/17/18 at 2:55 pm Service Date, if different from initiated Date: [] Patient: Kel Hernandez 53 y/o M admitted on 10/14/18 for Left Foot Redness, Swelling, Infection. Chief Complaint: [] Interval history: Mr. Hernandez is a 53 year old M presents to the ED with left distal foot wound with swelling tenderness erythema. He recently was diagnosed on Monday in the ED with influenza and feels he is improving from that standpoint. On Wednesdays when he realized he had a "hole in his foot" but there is no swelling pain erythema around it at that time. Is now feeling better from a flu aspect. However Monday his ankle started swelling and become puffy and had some redness around his foot and then this morning he has significant erythema and swelling of his foot and tenderness and some drainage over the fourth toe amputation. He said fevers chills headache. Some nausea but no vomiting and some diarrhea a few days ago. In the ED there is a imaging done which was concerning for fasciitis with some gas. Dr. Burr was contacted. She was started on IV antibiotics. 10/15 No new complaints. No overnight events. Ankle wrapped in dressing. Plan for OR I&D today with Dr. Burr. 10/16 Headache overnight. Left foot pain post I&D. No other complaints. 10/17 Patient seen and examined no acute overnight events. Still has some pain in the left foot. Otherwise no new complaints or concerns Pertinent ROS: Denies headache, dizziness Denies chest pain, palpitations Denies cough or shortness of breath Denies abdominal pain, nausea or vomiting. - Constitutional Vitals: Vital Signs Temp Pulse Resp BP Pulse Ox 97.9 F 66 18 107/73 95 10/17/18 12:00 10/17/18 12:00 10/17/18 12:00 10/17/18 12:00 10/17/18 12:00 Period Temp Pulse Resp BP Sys/Sweet Pulse Ox Last 24 Hr 97.9 F-98.9 F 63-92 14-18 107-126/70-80 94-97 Intake and Output 10/17/18 10/17/18 10/17/18 05:59 13:59 21:59 Intake Total 700 Output Total 950 Balance -250 Intake & Output: Intake & Output 10/17/18 10/17/18 10/17/18 05:59 13:59 21:59 Intake Total 700 Output Total 950 Balance -250 Intake: IV 100 Zosyn 3.375 gm In Dextrose 5% 100 in Water 50 ml @ 100 mls/hr IV Q6H [facility] Rx#:[id number] Oral 600 Output: Void Amount 950 Other: Urine Appearance Clear Urine Color Dark Yellow Urine Odor Normal Exam: Constitutional; Afebrile, cooperative, alert, not in distress. Respiratory system: Air Entry equal on both sides, No crackles or wheezing, no rhonchi. CVS- Rate rhythm regular, S1,S2 heard, no gallop, no rub. PRESSFITTER- AOOx3, moving all extremities, no gross focal deficit noted. Medical - PN: Obj Da - Labs CBC & Chem 7: 10/17/18 04:38 10/17/18 04:38 Labs: Abnormal Lab Results 10/17/18 10/17/18 10/16/18 04:38 04:38 04:38 RBC 4.25 L Hgb 12.3 L Hct 37.9 L MPV 7.1 L [place] % (Auto) 13.0 H [place] # (Auto) 1.1 H Calcium C-Reactive Protein Prealbumin 13.9 L Triglycerides 157 H 10/16/18 10/16/18 10/15/18 04:38 04:38 04:15 RBC 4.03 L Hgb 11.8 L Hct 35.7 L MPV 7.1 L [place] % (Auto) 13.0 H [place] # (Auto) 1.1 H Calcium 8.5 L 8.4 L C-Reactive Protein 8.8 H Prealbumin Triglycerides 10/15/18 04:15 RBC 4.13 L Hgb 12.0 L Hct 36.9 L MPV [place] % (Auto) 13.2 H [place] # (Auto) 1.4 H Calcium C-Reactive Protein Prealbumin Triglycerides Meds: Medications Acetaminophen (Tylenol) 1,000 mg PO TID [facility] Cefazolin Sodium (Ancef) 2 gm IV Q8H [facility]; Protocol Last Admin: 10/17/18 13:16 Dose: 2 gm Documented by: Docusate Sodium (Colace) 100 mg PO BID [facility] Last Admin: 10/17/18 09:23 Dose: 100 mg Documented by: Heparin Sodium (Porcine) (Heparin) 5,000 unit SQ Q12 [facility] Last Admin: 10/17/18 09:23 Dose: 5,000 unit Documented by: Lactobacillus Rhamnosus (Culturelle) 1 cap PO BID [facility] Last Admin: 10/17/18 09:23 Dose: 1 cap Documented by: Morphine Sulfate (Morphine) 1 - 2 mg IV Q4HP PRN PRN Reason: PAIN LEVEL > 6 Ondansetron HCl (Zofran) 4 mg IV Q6HP PRN PRN Reason: Nausea And Vomiting Oxycodone HCl (Roxicodone) 5 - 10 mg PO Q4HP PRN PRN Reason: pain not responding to apap. Sodium Chloride (Saline Flush) 10 ml IV Q8 [facility] Last Admin: 10/17/18 13:16 Dose: 10 ml Documented by: Medical - PN: A/P - Time Spent With Patient Total time spent is greater than 50% in coordination of care (as documented) at patient's floor/unit and/or counseling patient: - Narrative A/P Narrative: A: *Left foot wound infection/cellulitis: s/p I&D (10/15) -CT showing gas over site of wound -CRP improving -WC prelim growing staph aureus and GNB *Peripheral neuropathy: Unknown etiology, has seen Dr. Connolly for angiography in past *History of foot wounds: Has seen Dr. Burr in the past *Influenza: Currently undergoing treatment, finished *post op pain P: -vanc/zosyn, clindamycin brief course -Dr. Burr following, surgical biopsies pending -wound per Dr. Burr -change to pain regime to [facility] apap tid 1gm, and oxycodone instead of hydrocodone. -pending final WC to determine antibiotic regimen, hopefully tomorrow -wound care - -ppx: Heparin
[2018-10-17] MEDS ORDERED: ACETAMINOPHEN 325 MG TABLET PO SCH (15:00)
--- NOTE | 2018-10-17 15:19 | Surgical Pathology Report ---
HISTOLOGY SPECIMEN MICROSCOPIC DIAGNOSIS SKIN, LEFT FOOT ABSCESS WALL, BIOPSY: -- BROAD EPIDERMAL ULCER WITH ACUTE/CHRONIC INFLAMMATION, HEMORRHAGE, GRANULATION TISSUE AND FIBROSIS. -- NO MALIGNANCY IDENTIFIED. (ACP:ophelia) PROCEDURAL IMPRESSION Left foot ulcer. GROSS DESCRIPTION Received in formalin labeled left foot abscess wall, is a 1.8 x 0.9 x 0.4 cm purple-abarca tissue fragment. The margin is inked black. Sectioned, totally submitted - one cassette. (STS:ophelia) Electronically Signed by: Jamal Love M.D.
[2018-10-17] MEDS: ACETAMINOPHEN 500 MG TABLET PO SCH ×2 (16:15→21:29)
[2018-10-17] MEDS: oxyCODONE HCL 5 MG TABLET PO PRN ×2 (17:27→21:30)
[2018-10-18] MEDS: oxyCODONE HCL 5 MG TABLET PO PRN ×3 (01:28→10:27)
[2018-10-18 05:31] LABS: Basophils # (Auto) 0 K/mcL (0.0-0.3); Basophils % (Auto) 0.5 % (0.0-2.0); Eosinophils # (Auto) 0.3 K/mcL (0.0-0.7); Eosinophils % (Auto) 4.5 % (0.0-7.0); Granulocytes % (Auto) 45.7 % (38.0-78.0); Lymphocytes # (Auto) 2.6 K/mcL (1.5-4.8); Lymphocytes % (Auto) 37.9 % (15.5-49.0); Mean Cell Volume 88.7 fL (80.0-100.0); Mean Corpuscular HGB Conc 32.6 g/dL (31.0-36.0); Monocytes # (Auto) 0.8 K/mcL (0.1-0.9); Monocytes % (Auto) 11.4 % (1.0-12.0); Platelet Count 428 K/mcL (140-440); RBC 4.39 M/mcL (4.50-5.90); Red Cell Distribution Width 13.4 % (11.5-14.5)
[2018-10-18] MEDS: ceFAZolin 1 GM VIAL IV SCH (05:35)
[2018-10-18] MEDS: 0.9 % SODIUM CHLORIDE 10 ML SYRINGE IV SCH (05:35)
[2018-10-18 05:47] LABS: ALT/SGPT 33 U/l (0-40); Albumin 3.6 gm/dL (3.2-5.2); Albumin/Globulin Ratio 1.1 (1.0-2.3); Alkaline Phosphatase 74 U/L (39-117); Bilirubin,Direct < 0.2 mg/dL (0.0-0.3); Blood Urea Nitrogen 11 mg/dl (6-20); Gamma Glutamyl Transpeptidase 39 U/L (8-61); Uric Acid 4.2 mg/dL (2.5-8.0)
[2018-10-18] MEDS: HEPARIN 5,000 UNIT/ML VIAL SQ SCH (08:34)
[2018-10-18] MEDS: ACETAMINOPHEN 500 MG TABLET PO SCH (08:34)
[2018-10-18] MEDS: LACTOBACILLUS 1 CAPSULE PO SCH (08:34)
[2018-10-18] MEDS: DOCUSATE SODIUM 100 MG CAPSULE PO SCH (08:35)
[2018-10-18] MEDS ORDERED: 0.9 % SODIUM CHLORIDE 10 ML SYRINGE IV PRN (09:09)
--- NOTE | 2018-10-18 10:15 | Discharge Summary ---
Medical - DS: Prov Patient information: Note initiated : 10/18/18 at 10:11 am Service Date, if different from initiated Date: [] Patient: Kel Hernandez 53 y/o M admitted on 10/14/18 for Left Foot Redness, Swelling, Infection. Chief Complaint: [] Date of admission: 10/14/18 11:16 Discharge date: 10/18/18 Primary care physician: Lisa Isaacs Consults: 10/14/18 11:20 Consult to Physician [CONS] Routine Comment: Consulting Provider: Jason Kimball Reason For Exam: Physician to Consult 10/14/18 11:34 Consult to Physician [CONS] Routine Comment: Consulting Provider: Ney Burr Reason For Exam: Physician to Consult Consult to Physician [CONS] Routine Comment: Consulting Provider: Uriel aMta Reason For Exam: Physician to Consult 10/14/18 13:09 Consult to Infectious Disease [CONS] Routine Comment: Cellultis Lt foot. Neuropathy. Toe amputation Consulting Provider: Brody Hutchison Reason For Exam: Physician to Consult Discharging clinician: Vijay Shah Medical - DS: Meds - Discharge Medications Prescriptions: ceFAZolin [Ancef] 2 gm IV Q8H #28 vial oxyCODONE HCL [Roxicodone] 5 - 10 mg PO Q4HP PRN #30 tab PRN Reason: pain not responding to apap. Active and Home Medications: Home Medications Oseltamivir Phosphate [Tamiflu] 75 mg PO BID #10 cap 10/10/18 [Rx Confirmed 10/14/18 Last Taken 10/14/18 08:00] Medical - DS: Hosp Hospital course: Mr. Hernandez is a 53 year old M presents to the ED with left distal foot wound with swelling tenderness erythema. He recently was diagnosed on Monday in the ED with influenza and feels he is improving from that standpoint. On Wednesdays when he realized he had a "hole in his foot" but there is no swelling pain erythema around it at that time. Is now feeling better from a flu aspect. However Monday his ankle started swelling and become puffy and had some redness around his foot and then this morning he has significant erythema and swelling of his foot and tenderness and some drainage over the fourth toe amputation. He said fevers chills headache. Some nausea but no vomiting and some diarrhea a few days ago. In the ED there is a imaging done which was concerning for fasciitis with some gas. Dr. Burr was contacted. She was started on IV antibiotics. 10/15 No new complaints. No overnight events. Ankle wrapped in dressing. Plan for OR I&D today with Dr. Burr. 10/16 Headache overnight. Left foot pain post I&D. No other complaints. 10/17 Patient seen and examined no acute overnight events. Still has some pain in the left foot. Otherwise no new complaints or concerns 10/18 patients seen examined, no acute isues Culture growing ecoli and staph aureues. stable for discharge per ID, and wound care PICC to be placed. Pt to be discharged. with outpatient follow up with ID and wound care Discharge diagnosis: Diabetic wound - Time Spent with Patient Total time spent providing and/or coordinating discharge services: Greater than 30 minutes Medical - DS: Exam - Constitutional Vitals: Vital Signs Temp Pulse Resp BP BP Pulse Ox 10/18/18 08:00 98.0 F 16 125/76 95 10/18/18 07:20 14 10/18/18 03:45 97.9 F 58 L 12 116/70 96 10/17/18 23:05 98.5 F 62 12 120/73 96 10/17/18 19:00 97.5 F 70 16 114/73 95 10/17/18 16:00 98.7 F 96 H 18 125/70 95 10/17/18 15:00 97.7 F 67 18 115/68 95 10/17/18 12:00 97.9 F 66 18 107/73 95 Intake and Output 10/17/18 10/18/18 10/18/18 21:59 05:59 13:59 Intake Total 1040 0 Output Total 650 Balance 1040 -650 Intake: Oral 1040 0 Output: Void Amount 650 Other: Meal Dinner Percent of Meal Consumed 100% Urine Appearance Clear Urine Color Bright Yellow Weight 202 lb 11.2 oz Additional comments: Constitutional; Afebrile, cooperative, alert, not in distress. Respiratory system: Air Entry equal on both sides, No crackles or wheezing, no rhonchi. CVS- Rate rhythm regular, S1,S2 heard, no gallop, no rub. Abdomen- Soft nontender abdomen, no organomegaly, no tenderness, no guarding or rigidity, CARRIER LOADER- AOOx3, moving all extremities, no gross focal deficit noted. Medical - DS: Data Labs on day of discharge: Labs from last 24 hours 10/18/18 10/18/18 04:22 04:22 WBC 6.9 RBC 4.39 L Hgb 12.7 L Hct 39.0 L MCV 88.7 MCH 28.9 MCHC 32.6 RDW 13.4 Plt Count 428 MPV 6.7 L Gran % 45.7 Lymph % (Auto) 37.9 [place] % (Auto) 11.4 Eos % (Auto) 4.5 Baso % (Auto) 0.5 Gran # 3.2 Lymph # (Auto) 2.6 [place] # (Auto) 0.8 Eos # (Auto) 0.3 Baso # (Auto) 0 Sodium 144 Potassium 4.6 Chloride 107 Carbon Dioxide 27 Anion Gap 10.0 BUN 11 Creatinine 0.9 GFR Calculation 96 Glucose 92 Uric Acid 4.2 Calcium 8.9 Phosphorus 3.3 Magnesium 2.7 H Total Bilirubin 0.4 Direct Bilirubin < 0.2 GGT 39 AST 27 ALT 33 Alkaline Phosphatase 74 Lactate Dehydrogenase 161 Total Protein 6.9 Albumin 3.6 Globulin 3.3 Albumin/Globulin Ratio 1.1 Triglycerides 186 H Preliminary micro results at discharge 10/15/18 17:00 Anaerobic Culture - Preliminary Foot - Left 10/14/18 07:25 Blood Culture - Preliminary Blood 10/14/18 07:35 Blood Culture - Preliminary Blood 10/15/18 17:01 Anaerobic Culture - Preliminary Bone - Foot Medical - DS: A/P - Patient/Caregiver Discharge Instructions Activity: increase activity as tolerated Diet: Regular Diet Additional Instructions: Please follow wound care reccommendations for weight bearing and care of the wound You will be on IV antibiotics for 4-[address] Hutchison, IV anceph 2 gms every 8 [address] Via Cadd pump. Follow up with ID clinic and Wound care clinic GO to the ER if fever, chills chest pain or any other acute concern. Please do weekly labs as instructed. - Follow up Plan Follow up with: Lisa Isaacs ARNP [Primary Care Provider] - Disposition: Home, Self-Care Prognosis: Fair Rehab Potential: Fair Overall status at discharge: patient is progressing back to baseline
--- NOTE | 2018-10-18 11:34 | General Surgery Progress Note ---
Subjective Patient reports: no new complaints Narrative: Note initiated : 10/18/18 at 11:31 am Service Date, if different from initiated Date: [] Patient: Kel Hernandez 53 y/o M admitted on 10/14/18 for Left Foot R edness, Swelling, Infection. Chief Complaint: [] Objective Temp Pulse Resp BP Pulse Ox 98.0 F 58 L 16 125/76 95 10/18/18 08:00 10/18/18 03:45 10/18/18 08:00 10/18/18 08:00 10/18/18 08:00 AVSS. No changes KATIE. Wound VAC in place - Additional Data Intake & Output - Last 24 hours: Intake & Output 10/16/18 10/17/18 10/18/18 10/19/18 05:59 05:59 05:59 05:59 Intake Total 1874 2650 1090 Output Total 550 1200 650 Balance 1324 1450 440 Weight 207 lb 206 lb 9 oz 202 lb 11.2 oz - Labs 10/18/18 04:22 10/18/18 04:22 Diabetes panel 10/18/18 Range/Units 04:22 Sodium 144 (133-145) mmol/L Potassium 4.6 (3.3-5.1) mmol/L Chloride 107 (96-108) mmol/L Carbon Dioxide 27 (22-30) mmol/L BUN 11 (6-20) mg/dl Creatinine 0.9 (0.7-1.2) mg/dl Glucose 92 (70-105) mg/dL Calcium 8.9 (8.6-10.4) mg/dl AST 27 (0-37) U/l ALT 33 (0-40) U/l Alkaline Phosphatase 74 (39-117) U/L Total Protein 6.9 (5.9-8.4) gm/dL Albumin 3.6 (3.2-5.2) gm/dL Triglycerides 186 H (<150) mg/dl Calcium panel 10/18/18 Range/Units 04:22 Calcium 8.9 (8.6-10.4) mg/dl Phosphorus 3.3 (2.7-4.5) mg/dL Albumin 3.6 (3.2-5.2) gm/dL Pituitary panel 10/18/18 Range/Units 04:22 Sodium 144 (133-145) mmol/L Potassium 4.6 (3.3-5.1) mmol/L Chloride 107 (96-108) mmol/L Carbon Dioxide 27 (22-30) mmol/L BUN 11 (6-20) mg/dl Creatinine 0.9 (0.7-1.2) mg/dl Glucose 92 (70-105) mg/dL Calcium 8.9 (8.6-10.4) mg/dl Adrenal panel 10/18/18 Range/Units 04:22 Sodium 144 (133-145) mmol/L Potassium 4.6 (3.3-5.1) mmol/L Chloride 107 (96-108) mmol/L Carbon Dioxide 27 (22-30) mmol/L BUN 11 (6-20) mg/dl Creatinine 0.9 (0.7-1.2) mg/dl Glucose 92 (70-105) mg/dL Calcium 8.9 (8.6-10.4) mg/dl Total Bilirubin 0.4 (0.0-1.0) mg/dL AST 27 (0-37) U/l ALT 33 (0-40) U/l Alkaline Phosphatase 74 (39-117) U/L Total Protein 6.9 (5.9-8.4) gm/dL Albumin 3.6 (3.2-5.2) gm/dL Assessment and Plan (1) Other specified sepsis Problem details: Infected LEFT foot plantar ulcer with neuropathy Status: Acute Current Visit: Yes (2) Foot ulcer, left Problem details: Assessment:Neuropathic LEFT foot plantar ulcer with CSSSI. Plan: See wound care orders. For OR debridement HOLGER Status: Acute Current Visit: No - Narrative A/P Narrative: Assessment: Seen on rounds with Avril BOYD. Wound VAC in place and functioning well. Plan: OK for D/C from wound care. SDS wound VAC change on 10/19/2018 F/U at wound / podiatry clinic on 10/23/28 To be seen by YANETH WOOD at clinic - Time Spent With Patient Total time spent is greater than 50% in coordination of care (as documented) at patient's floor/unit and/or counseling patient: less than 15 minutes
--- NOTE | 2018-10-18 12:04 | XRay Report ---
CLINICAL INFORMATION: PICC PLACEMENT COMPARISON: 10/10/2018 FINDINGS: Right PICC line tip overlies the SVC azygos junction. Cardiomediastinal silhouette and pulmonary vessels are normal. Lungs are clear. No effusions. IMPRESSION: No acute disease. PICC line in satisfactory position Interpreted and Authenticated by: Lyle Jerome 10/18/18
[2018-10-18] MEDS ORDERED: ceFAZolin 8 GM in 0.9 % SODIUM CHLORIDE 200 ML IV ONE (13:30)
--- NOTE | 2018-10-18 13:52 | Infectious Disease Prog Note ---
Subjective Patient information: Note initiated : 10/18/18 at 1:48 pm Service Date, if different from initiated Date: [] Patient: Kel Hernandez 53 y/o M admitted on 10/14/18 for Left Foot Redness, Swelling, Infection. Chief Complaint: [] Interval history: Patient doing well. Denies any fever, chills, nausea, vomiting, diarrhea. He is getting his IV cefazolin 3 times daily. Discussed with him his operative cultures and the fact that bone cultures are negative so far and plan to do at least 4 weeks of IV antibiotics with follow-up in ID clinic to determine further duration. Shared with him that his MRSA nasal swab is negative. Patient was about to get the PICC line when I saw him. Objective Objective Narrative: ao x 3, in nad chest cta s1 s2 normal bs ++ nttd Lt foot: has a wound vac with no drainage, mild redness around the wound vac. mild tenderness over the left heel. Can move his toes without difficulty, peripheral pulses palpable. No edema - Vital Signs Vital signs: Vital Signs Temp Pulse Resp BP BP Pulse Ox 10/18/18 12:00 35.8 C L 16 116/68 94 10/18/18 08:00 36.7 C 16 125/76 95 10/18/18 07:20 14 10/18/18 03:45 36.6 C 58 L 12 116/70 96 10/17/18 23:05 36.9 C 62 12 120/73 96 10/17/18 19:00 36.4 C 70 16 114/73 95 10/17/18 16:00 37.1 C 96 H 18 125/70 95 10/17/18 15:00 36.5 C 67 18 115/68 95 Intake and Output 10/17/18 10/18/18 10/18/18 21:59 05:59 13:59 Intake Total 1040 0 Output Total 650 Balance 1040 -650 Intake: Oral 1040 0 Output: Void Amount 650 Other: Meal Dinner Percent of Meal Consumed 100% Urine Appearance Clear Urine Color Bright Yellow Weight 91.943 kg Intake & Output: Intake & Output 10/17/18 10/18/18 10/18/18 21:59 05:59 13:59 Intake Total 1040 0 Output Total 650 Balance 1040 -650 Weight 91.943 kg Intake: Oral 1040 0 Output: Void Amount 650 Other: Meal Dinner Percent of Meal Consumed 100% Urine Appearance Clear Urine Color Bright Yellow - Lab 10/18/18 04:22 10/18/18 04:22 Most recent lab results Calcium 8.9 mg/dl (8.6-10.4) 10/18/18 04:22 Phosphorus 3.3 mg/dL (2.7-4.5) 10/18/18 04:22 Magnesium 2.7 mg/dL (1.6-2.5) H 10/18/18 04:22 Microbiology 10/15/18 17:00 Foot - Left Gram Stain - Final 10/15/18 17:00 Foot - Left Gram Stain - Final 10/15/18 17:00 Foot - Left Anaerobic Culture - Preliminary 10/15/18 17:00 Foot - Left Gram Stain - Final 10/15/18 17:00 Foot - Left Wound Culture - Final Staphylococcus aureus 10/15/18 17:01 Bone - Foot Gram Stain - Final 10/15/18 17:01 Bone - Foot Gram Stain - Final 10/15/18 17:01 Bone - Foot Anaerobic Culture - Preliminary 10/14/18 07:25 Blood Blood Culture - Preliminary 10/14/18 07:35 Blood Blood Culture - Preliminary 10/15/18 17:01 Aspirate - Foot Gram Stain - Final 10/15/18 17:01 Aspirate - Foot Body Fluid Culture - Final 10/16/18 17:22 Nose MRSA (PCR) - Final 10/14/18 09:00 Foot - Left Gram Stain - Final 10/14/18 09:00 Foot - Left Wound Culture - Final Staphylococcus aureus Escherichia coli Medications Active Medications: Acetaminophen (Tylenol) 1,000 mg PO TID [facility] Last Admin: 10/18/18 08:34 Dose: 1,000 mg Documented by: Admin: 10/17/18 21:29 Dose: 1,000 mg Documented by: Admin: 10/17/18 16:15 Dose: 1,000 mg Documented by: ALLYN Docusate Sodium (Colace) 100 mg PO BID [facility] Last Admin: 10/18/18 08:35 Dose: 100 mg Documented by: Admin: 10/17/18 21:29 Dose: 100 mg Documented by: Admin: 10/17/18 09:23 Dose: 100 mg Documented by: Admin: 10/16/18 21:11 Dose: 100 mg Documented by: JAMES Heparin Sodium (Porcine) (Heparin) 5,000 unit SQ Q12 [facility] Admin: 10/18/18 08:34 Dose: 5,000 unit Documented by: Admin: 10/17/18 21:30 Dose: 5,000 unit Documented by: Admin: 10/17/18 09:23 Dose: 5,000 unit Documented by: Admin: 10/16/18 21:11 Dose: 5,000 unit Documented by: Admin: 10/16/18 09:33 Dose: 5,000 unit Documented by: Admin: 10/15/18 20:56 Dose: 5,000 unit Documented by: SHARMILA Heparin Sodium (Porcine) (Heparin Flush) 2 ml IV Q12 [facility] Lactobacillus Rhamnosus (Culturelle) 1 cap PO BID [facility] Admin: 10/18/18 08:34 Dose: 1 cap Documented by: Admin: 10/17/18 21:29 Dose: 1 cap Documented by: Admin: 10/17/18 09:23 Dose: 1 cap Documented by: Admin: 10/16/18 21:11 Dose: 1 cap Documented by: Admin: 10/16/18 09:33 Dose: 1 cap Documented by: Admin: 10/15/18 20:56 Dose: 1 cap Documented by: SHARMILA Morphine Sulfate (Morphine) 1 - 2 mg IV Q4HP PRN PRN Reason: PAIN LEVEL > 6 Ondansetron HCl (Zofran) 4 mg IV Q6HP PRN PRN Reason: Nausea And Vomiting Oxycodone HCl (Roxicodone) 5 - 10 mg PO Q4HP PRN PRN Reason: pain not responding to apap. Last Admin: 10/18/18 10:27 Dose: 10 mg Documented by: Admin: 10/18/18 05:35 Dose: 10 mg Documented by: Admin: 10/18/18 01:28 Dose: 10 mg Documented by: Admin: 10/17/18 21:30 Dose: 10 mg Documented by: [email or web address] Admin: 10/17/18 17:27 Dose: 10 mg Documented by: [email or web address] Sodium Chloride (Saline Flush) 10 ml IV Q8 [facility] Last Admin: 10/18/18 05:35 Dose: 10 ml Documented by: Admin: 10/17/18 21:31 Dose: 10 ml Documented by: [email or web address] Admin: 10/17/18 13:16 Dose: 10 ml Documented by: [email or web address] Admin: 10/17/18 05:14 Dose: 10 ml Documented by: Admin: 10/16/18 21:12 Dose: 10 ml Documented by: Admin: 10/16/18 12:40 Dose: 10 ml Documented by: Admin: 10/16/18 06:14 Dose: 10 ml Documented by: Admin: 10/15/18 20:56 Dose: 10 ml Documented by: SHARMILA Sodium Chloride (Saline Flush) 10 ml IV UD PRN PRN Reason: FLUSH Sodium Chloride (Saline Flush) 10 ml IV Q12 [facility] Assessment and Plan - Narrative A/P Narrative: A: 1. Left foot penetrating wound with moderate cellulitis/fasciitis in the forefoot particularly the fourth and fifth rays. Focal gas seen in the subdermal soft tissues (likely because it was an open wound): s/p operative debridement on 10/16 - superf Cx growing MSSA and queen sens Ecoli, Op tissue Cx growing MSSA - Bone Cx NGTD - negative MRSA nasal swab 2. No sepsis: qSOFA score 0 Recommendations: - Continue IV Cefazolin 2 gm q8 hrs, day 3 [counting from his day of surgery] through PICC line and CADD pump Start date: 10/16/18 Stop date: 11/15/18 - Follow up labs: CBC, BMP once weekly ESR and CRP every other week - ID clinic appointment on 10/15/18 at 10 am Patient counseled extensively not to walk barefoot, seeing neurologist to determine the cause of his neuropathy. Brody Hutchison MD Infectious disease
[2018-10-18] MEDS ORDERED: 0.9 % SODIUM CHLORIDE 10 ML SYRINGE IV SCH (21:00)
== END 2018-10-18 14:35 | disposition home or self-care (01) | DRG 464 ==
LOC: ED 07:13 → MEDSUR 11:16
PROVIDERS: ADMIT Internal Medicine; ATTEND Internal Medicine

== ENCOUNTER 2019-06-29 14:52 | Inpatient (IN) ==
[2019-06-29] MEDS ORDERED: LACTATED RINGERS 1,000 ML IV ONE (15:23)
[2019-06-29 16:22] LABS: Basophils # (Auto) 0.03 K/mcL (0.00-0.30); Basophils % (Auto) 0.2 % (0.0-2.0); Eosinophils # (Auto) 0.06 K/mcL (0.00-0.70); Eosinophils % (Auto) 0.4 % (0.0-7.0); Granulocytes % (Auto) 86.5 % (38.0-78.0); Hematocrit 46.9 % (40.1-51.0); Hemoglobin 15.6 g/dL (13.7-17.5); Lymphocytes # (Auto) 0.96 K/mcL (1.50-4.80); Mean Cell Volume 88.2 fL (80.0-100.0); Mean Corpuscular HGB Conc 33.3 g/dL (31.0-36.0); Mean Platelet Volume 9.2 fL (7.4-10.4); Monocytes % (Auto) 6.9 % (1.0-12.0); Platelet Count 222 K/mcL (140-440); RBC 5.32 M/mcL (4.63-6.08); Red Cell Distribution Width 12.9 % (11.5-14.5); WBC 15.9 K/mcL (4.50-11.00)
[2019-06-29] MEDS ORDERED: ACETAMINOPHEN 325 MG TABLET PO ONE (16:24)
[2019-06-29 16:38] LABS: Chloride 99 mmol/L (96-108)
[2019-06-29] MEDS ORDERED: cefTRIAXone 1 GM VIAL IV ONE (16:47)
[2019-06-29] MEDS ORDERED: VANCOMYCIN 1,000 MG in 0.9 % SODIUM CHLORIDE 250 ML IV ONE (16:48)
[2019-06-29 16:55] LABS: ALT/SGPT 43 U/l (0-40); Albumin 4.6 gm/dL (3.2-5.2); Alkaline Phosphatase 79 U/L (39-117)
[2019-06-29 16:57] LABS: AST/SGOT 28 U/l (0-37); Albumin/Globulin Ratio 1.5 (1.0-2.3); Bilirubin,Total 0.8 mg/dL (0.0-1.0); Blood Urea Nitrogen 10 mg/dl (6-20); Calcium 9.8 mg/dl (8.6-10.4); Carbon Dioxide 24 mmol/L (22-30); Globulin 3.1 gm/dL (2.2-3.7); Glomerular Filtration Rate 75; Glucose 90 mg/dL (70-105)
[2019-06-29] MEDS ORDERED: ONDANSETRON 4 MG/2 ML VIAL IV ONE (17:01)
[2019-06-29] MEDS ORDERED: IBUPROFEN 600 MG TABLET PO ONE (17:39)
--- NOTE | 2019-06-29 18:09 | Emergency Department Note ---
General Adult HPI - General Chief complaint: Extremity Injury, Lower Stated complaint: concerned foot wound is infected Time Seen by Provider: 06/29/19 15:17 Source: patient Mode of arrival: ambulatory Limitations: no limitations - History of Present Illness HPI Narrative: Reason for visit: Reports recent malaise and weakness. Reports fever and chills over the last couple days. Patient reports chronic foot neuropathy denies diabetes. He states that yesterday he found a wound on his bottom right foot. Does not know how long this condition has been here due to his neuropathy. He is noticed chills weakness and feeling like he was ill. Patient has swelling and redness to the bottom of his right foot. Patient has had episodes of shaking. States that today his symptoms of weakness chills and shaking has been profound. Reports tingling in his right foot and episodes of neuropathic pain. States a history of right lateral foot problems and amputations. In the past he has seen Dr. Mata for these issues. The patient does have an area on his right distal plantar foot. Patient denies chest pain or shortness of breath. - Related Data Home Medications Medication Instructions Recorded Confirmed docusate sodium 100 mg capsule 100 mg PO BID PRN cap 11/15/18 06/29/19 Previous Rx's Medication Instructions Recorded Acetaminophen [Tylenol] 1,000 mg PO TID tab 10/18/18 gabapentin 300 mg capsule 300 mg PO TID #180 cap 05/16/19 Allergies Allergy/AdvReac Type Severity Reaction Status Date / Time No Known Drug Allergies Allergy Verified 06/20/19 13:47 Review of Systems Constitutional: Reports: fever, chills, weakness, sweats Eyes: Denies: eye discharge, vision change ENT ED: Denies: ear pain, throat pain Cardiovascular: Denies: chest pain, palpitations Respiratory: Denies: shortness of breath Gastrointestinal: Reports: nausea (Reports episodes of nausea no vomiting.). Denies: abdominal pain, vomiting, diarrhea Genitourinary: Denies: dysuria, frequency Musculoskeletal: Reports: other (See HPI). Denies: back pain Integumentary: Reports: lesions (Open circular wound on right plantar area region) Neurological: Reports: weakness, numbness (Chronic see HPI). Denies: headache, confusion Psychiatric: Denies: anxiety Endocrine: Reports: fatigue Hematological/Lymphatic: Denies: easy bleeding, lymphadenopathy Allergic/Immunologic: Denies: facial swelling, urticaria Past Medical History - Past Medical History Medical history: Reports: non-contributory, other (Recent sinusitis) Surgical history ED: Reports: orthopedic, other - Social History smoking status: Never smoker Alcohol use: Reports: None Drug use: Reports: none Physical Exam Limitations: no limitations General appearance: alert Head: atraumatic, normocephalic, normal inspection Eye: Present: normal appearance, PERRL. Absent: scleral icterus ENT: Present: normal exam Neck: Present: normal inspection, full ROM, trachea midline. Absent: ten derness, lymphadenopathy Chest: Present: symmetric chest wall rise Respiratory: Present: normal lung sounds bilaterally Cardiovascular: Present: regular rate, tachycardia Abdominal: Present: soft. Absent: tenderness, guarding Hip/Pelvis: Present: normal inspection Upper leg: Present: normal inspection Foot/toe: Present: tenderness, swelling, erythema, amputation (Amputation of right third toe. 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 Appears inflamed with surrounding redness and heat.) 1 - Mentioned circular wound. Neurovascular/Tendon: Present: normal capillary refill, motor deficit, sensory deficit. Absent: pulse deficit Back: Present: normal inspection, full ROM. Absent: CVA tenderness (R), CVA tenderness (L) Neurological: Present: alert, oriented X3, CN II-XII intact, normal gait Psychiatric: Present: normal affect, normal mood Skin: Present: warm, dry, other (Skin otherwise normal.) Course Course Narrative: Because this patient has a elevated heart rate, chills, fever and a source of infection being the right foot. We will proceed to do a sepsis work-up. Patient's lactic acid is elevated. Will request a bed for this patient to be admitted here at the hospital and treated Vital Signs Temperature 99.7 F H 06/29/19 14:54 Pulse Rate 130 H 06/29/19 14:54 Respiratory Rate 22 06/29/19 14:54 Blood Pressure 120/81 06/29/19 14:54 Pulse Oximetry (%) 96 06/29/19 14:54 Temperature 99.8 F H 06/30/19 16:00 Pulse Rate 95 H 06/30/19 16:00 Respiratory Rate 18 06/30/19 16:00 Blood Pressure 104/62 06/30/19 16:00 Pulse Oximetry (%) 96 06/30/19 16:00 Medical Decision Making - Lab Data Result diagrams: 06/30/19 05:00 06/30/19 05:00 Lab Results 06/29/19 06/29/19 06/29/19 Range/Units 15:35 15:35 15:35 WBC 15.9 H (4.50-11.00) K/mcL RBC 5.32 (4.63-6.08) M/mcL Hgb 15.6 (13.7-17.5) g/dL Hct 46.9 (40.1-51.0) % MCV 88.2 (80.0-100.0) fL MCH 29.3 (26.0-34.0) pg MCHC 33.3 (31.0-36.0) g/dL RDW 12.9 (11.5-14.5) % Plt Count 222 (140-440) K/mcL MPV 9.2 (7.4-10.4) fL Gran % 86.5 H (38.0-78.0) % Lymph % (Auto) 6.0 L (15.5-49.0) % Daggett % (Auto) 6.9 (1.0-12.0) % Eos % (Auto) 0.4 (0.0-7.0) % Baso % (Auto) 0.2 (0.0-2.0) % Gran # 13.77 H (1.80-8.00) K/mcL Lymph # (Auto) 0.96 L (1.50-4.80) K/mcL Daggett # (Auto) 1.10 H (0.10-0.90) K/mcL Eos # (Auto) 0.06 (0.00-0.70) K/mcL Baso # (Auto) 0.03 (0.00-0.30) K/mcL Differential Comment * ESR (0-15) mm/hr VBG Lactic Acid 2.6 H (0.5-2.0) mmol/L Sodium 138 (133-145) mmol/L Potassium 4.2 (3.3-5.1) mmol/L Chloride 99 (96-108) mmol/L Carbon Dioxide 24 (22-30) mmol/L Anion Gap 15.0 (8-16) BUN 10 (6-20) mg/dl Creatinine 1.1 (0.7-1.2) mg/dl GFR Calculation 75 Glucose 90 (70-105) mg/dL Calcium 9.8 (8.6-10.4) mg/dl Total Bilirubin 0.8 (0.0-1.0) mg/dL AST 28 (0-37) U/l ALT 43 H (0-40) U/l Alkaline Phosphatase 79 (39-117) U/L Total Protein 7.7 (5.9-8.4) gm/dL Albumin 4.6 (3.2-5.2) gm/dL Globulin 3.1 (2.2-3.7) gm/dL Albumin/Globulin Ratio 1.5 (1.0-2.3) Procalcitonin (<0.10) ng/mL 06/29/19 06/29/19 Range/Units 15:35 20:50 WBC (4.50-11.00) K/mcL RBC (4.63-6.08) M/mcL Hgb (13.7-17.5) g/dL Hct (40.1-51.0) % MCV (80.0-100.0) fL MCH (26.0-34.0) pg MCHC (31.0-36.0) g/dL RDW (11.5-14.5) % Plt Count (140-440) K/mcL MPV (7.4-10.4) fL Gran % (38.0-78.0) % Lymph % (Auto) (15.5-49.0) % Daggett % (Auto) (1.0-12.0) % Eos % (Auto) (0.0-7.0) % Baso % (Auto) (0.0-2.0) % Gran # (1.80-8.00) K/mcL Lymph # (Auto) (1.50-4.80) K/mcL Daggett # (Auto) (0.10-0.90) K/mcL Eos # (Auto) (0.00-0.70) K/mcL Baso # (Auto) (0.00-0.30) K/mcL Differential Comment ESR 10 (0-15) mm/hr VBG Lactic Acid (0.5-2.0) mmol/L Sodium (133-145) mmol/L Potassium (3.3-5.1) mmol/L Chloride (96-108) mmol/L Carbon Dioxide (22-30) mmol/L Anion Gap (8-16) BUN (6-20) mg/dl Creatinine (0.7-1.2) mg/dl GFR Calculation Glucose (70-105) mg/dL Calcium (8.6-10.4) mg/dl Total Bilirubin (0.0-1.0) mg/dL AST (0-37) U/l ALT (0-40) U/l Alkaline Phosphatase (39-117) U/L Total Protein (5.9-8.4) gm/dL Albumin (3.2-5.2) gm/dL Globulin (2.2-3.7) gm/dL Albumin/Globulin Ratio (1.0-2.3) Procalcitonin 1.94 (<0.10) ng/mL Disposition Pt seen by FIELD MARKETING ASSOCIATE/PA only: No Clinical Impression: Sepsis, Foot abrasion, infected Disposition: Xfer As Inpt ([facility]) Condition: Serious
[2019-06-29] MEDS ORDERED: 0.9 % SODIUM CHLORIDE 1,000 ML IV ONE ×2 (19:04→19:39)
[2019-06-29] MEDS ORDERED: DOCUSATE SODIUM 100 MG CAPSULE PO PRN ×2 (20:37→22:44)
--- NOTE | 2019-06-29 20:54 | Internal Med History&Physical ---
Medical - H&P: [facility] Patient information: Note initiated : 06/29/19 at 8:48 pm Service Date, if different from initiated Date: [] Patient: Kel Hernandez a 54 y/o M admitted on for concerned foot wound is infected. Chief Complaint: [right foot erythema base of 4th toe.] History of present illness: Mr. Hernandez is a 54 year old M has severe non diabetic peripheral neuropathy. 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 He has decreased sensation in all 4 distal ext but in feet is severe no light sensation both feet below the ankles. Pt has not had fever or chills but noticed erythema because examines feet daily to prevent limb loss. was wearing shoes whole time. no pain but no sensation. - Constitutional Constitutional: Absent: chills, fever(s), lethargy, malaise - Cardiovascular Cardiovascular: Absent: chest pain, claudication, leg edema - Respiratory Respiratory: Absent: cough, hemoptysis, wheezing - Gastrointestinal Gastrointestinal: Absent: change in bowel habits - Integumentary Integumentary: Present: erythema Additional comments: right foot dorsum - Neurological Neurological: Present: numbness, sensory deficit - Psychiatric Psychiatric: Absent: confusion, depression - Endocrine Endocrine: Present: other (no diabetes) - Hematologic/Lymphatic Hematologic/Lymphatic: Absent: easy bleeding, easy bruising Medical - H&P: PMH Problems Reviewed: Yes Medical history: neuropathy only Surgical history: left wrist carpal tunnel toe amputation left 4th toe amputation right 3rd Family history: reviewed and not pertinent (no neuropathy) 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 by wants full code Functional capacity: independent ambulation Smoking status: Never smoker Drug use: none Alcohol use: none Medical - H&P: Meds Home Medications Medication Instructions Recorded Confirmed Type Acetaminophen [Tylenol] 1,000 mg PO TID tab 10/18/18 06/29/19 Rx docusate sodium 100 mg capsule 100 mg PO BID PRN cap 11/15/18 06/29/19 History gabapentin 300 mg capsule 300 mg PO TID #180 cap 05/16/19 06/29/19 Rx Allergies Allergy/AdvReac Type Severity Reaction Status Date / Time No Known Drug Allergies Allergy Verified 06/20/19 13:47 Medical - H&P: Exam - Constitutional Vitals: Temp Pulse Resp BP Pulse Ox 101.4 F H 95 H 18 131/70 93 06/29/19 20:10 06/29/19 20:10 06/29/19 20:10 06/29/19 18:00 06/29/19 20:10 General appearance: obese (mild) - Head Head exam: Present: atraumatic - Respiratory Respiratory exam: Present: normal respiratory exam, CTAB - Cardiovascular Cardiovascular exam: Present: normal rate and rhythm. Absent: systolic murmur - GI/Abdominal GI/Abdominal exam: Present: normal bowel sounds, soft - Extremities Exam Extremities exam: Absent: calf tenderness, pedal edema - Expanded Lower Extremities Exam Foot/Toe exam: Present: amputation (left 4th and right 3rd toes. ), erythema (along the dorsum of right foot between the 2nd and 4th toes to mid foot), swelling (mild right foot) Neuro vascular tendon exam: Present: sensory deficit (no sensation below lower 3rd or ankle to the feet and include all of feet) - Skin Skin exam: Present: dry, warm Medical - H&P: Reslt - Labs CBC & Chem 7: 06/29/19 15:35 06/29/19 15:35 Labs: Short CBC 06/29/19 Range/Units 15:35 WBC 15.9 H (4.50-11.00) K/mcL Hgb 15.6 (13.7-17.5) g/dL Hct 46.9 (40.1-51.0) % Plt Count 222 (140-440) K/mcL BMP 06/29/19 15:35 Sodium 138 Potassium 4.2 Chloride 99 Carbon Dioxide 24 BUN 10 Creatinine 1.1 Glucose 90 Calcium 9.8 Liver Function 06/29/19 Range/Units 15:35 Total Bilirubin 0.8 (0.0-1.0) mg/dL AST 28 (0-37) U/l ALT 43 H (0-40) U/l Alkaline Phosphatase 79 (39-117) U/L Albumin 4.6 (3.2-5.2) gm/dL Medical - H&P: A/P (1) Right foot ulcer Problem details: due to pressure from lack of sensation due to neuropathy Current visit: Yes Status: Acute mild. will follow on abx for cellulitis. The Xray looks ok will consult Dr. Uriel Mata DPM the pts laundry helper (2) Cellulitis of right foot Problem details: mild pale Current visit: Yes Status: Acute start clindamycin 600mg q8. change to oral if improving (3) Neuropathy of both feet Problem details: chronic non diabetic Current visit: No Status: Chronic tx with home gabapentin
[2019-06-29] MEDS ORDERED: GABAPENTIN 300 MG CAPSULE PO SCH (21:00)
[2019-06-29] MEDS ORDERED: ACETAMINOPHEN 500 MG TABLET PO SCH (21:00)
[2019-06-29] MEDS ORDERED: HYDROcodone/APAP 5/325MG TABLET PO PRN (22:44)
[2019-06-29] MEDS ORDERED: ONDANSETRON 4 MG/2 ML VIAL IV PRN (22:44)
[2019-06-29] MEDS ORDERED: ACETAMINOPHEN 500 MG TABLET PO ONE (22:48)
[2019-06-29] MEDS ORDERED: GABAPENTIN 300 MG CAPSULE ONE (22:48)
[2019-06-29] MEDS: GABAPENTIN 300 MG CAPSULE PO SCH (22:52)
[2019-06-29] MEDS: ACETAMINOPHEN 500 MG TABLET PO SCH (22:52)
[2019-06-29] MEDS: SENNOSIDES 1 TABLET PO SCH (22:53)
[2019-06-29] MEDS: 0.9 % SODIUM CHLORIDE 10 ML SYRINGE IV SCH (22:53)
[2019-06-29] MEDS: DOCUSATE SODIUM 100 MG CAPSULE PO SCH (22:54)
[2019-06-29] MEDS ORDERED: CLINDAMYCIN 600 MG/4 ML VIAL ONE (23:05)
[2019-06-29] MEDS: CLINDAMYCIN 600 MG in DEXTROSE 5% IN WATER 50 ML IV SCH (23:11)
[2019-06-30] MEDS: 0.9 % SODIUM CHLORIDE 10 ML SYRINGE IV SCH ×4 (06:08→22:16)
[2019-06-30 06:28] LABS: Basophils # (Auto) 0.02 K/mcL (0.00-0.30); Basophils % (Auto) 0.2 % (0.0-2.0); Eosinophils # (Auto) 0.01 K/mcL (0.00-0.70); Eosinophils % (Auto) 0.1 % (0.0-7.0); Granulocytes % (Auto) 84.5 % (38.0-78.0); Hematocrit 41.1 % (40.1-51.0); Hemoglobin 13.1 g/dL (13.7-17.5); Lymphocytes # (Auto) 0.83 K/mcL (1.50-4.80); Lymphocytes % (Auto) 7.5 % (15.5-49.0); Mean Cell Volume 90.9 fL (80.0-100.0); Mean Corpuscular HGB Conc 31.9 g/dL (31.0-36.0); Mean Platelet Volume 9.6 fL (7.4-10.4); Monocytes # (Auto) 0.86 K/mcL (0.10-0.90); Monocytes % (Auto) 7.7 % (1.0-12.0); Platelet Count 188 K/mcL (140-440); RBC 4.52 M/mcL (4.63-6.08); Red Cell Distribution Width 13.2 % (11.5-14.5); WBC 11.1 K/mcL (4.50-11.00)
[2019-06-30 07:05] LABS: Blood Urea Nitrogen 12 mg/dl (6-20); Calcium 8.4 mg/dl (8.6-10.4); Carbon Dioxide 24 mmol/L (22-30); Chloride 106 mmol/L (96-108); Glomerular Filtration Rate 84; Glucose 102 mg/dL (70-105)
[2019-06-30] MEDS: ENOXAPARIN 40 MG/0.4 ML SYRINGE SQ SCH (09:21)
[2019-06-30] MEDS: CLINDAMYCIN 600 MG in DEXTROSE 5% IN WATER 50 ML IV SCH ×3 (09:21→22:14)
[2019-06-30] MEDS: ACETAMINOPHEN 500 MG TABLET PO SCH ×3 (09:22→22:16)
[2019-06-30] MEDS: DOCUSATE SODIUM 100 MG CAPSULE PO SCH ×2 (09:22→22:16)
[2019-06-30] MEDS: GABAPENTIN 300 MG CAPSULE PO SCH ×3 (09:22→22:14)
--- NOTE | 2019-06-30 09:25 | XRay Report ---
HISTORY: Dorsal foot infection FINDINGS: The third toe has been amputated. The base of the proximal phalanx is only portion of the toe remaining and it is aligned normally with the third metatarsal. Bones throughout the foot are normally mineralized without evidence of osteomyelitis. No abscess or soft tissue thickening are seen except for mild swelling around the arthritic joints at the first metatarsal and interphalangeal joint of the great toe. 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 Patient has a congenitally short talus. There is no gas or foreign body in the soft tissues. IMPRESSION: no evidence of abscess or osteomyelitis Arthritis Interpreted and Authenticated by: Otto Love 06/30/19
--- NOTE | 2019-06-30 10:28 | Orthopedic Consult Note ---
History of Present Illness - [facility] Patient information: Note initiated : 06/30/19 at 10:23 am Service Date, if different from initiated Date: [] Patient: Kel Hernandez 54 y/o M admitted on 06/29/19 for concerned foot wound is infected. Chief Complaint: [Right foot infection] Consult date: 06/29/19 Requesting physician: Kleber Elias Consult reason: other (Right foot infection) History of present illness: Mr. Hernandez is a long-time neuropathic wound patient. He has had multiple ulcerations on both feet and has had amputations performed by Dr. Ney Burr MD. He was recently discharged form podiatric clinic following treatment of right second toe wound on the dorsal aspect. He has been using modified shoes and pads to protect the high pressure areas. He reports that a few days ago on late he noted increased redness to the right foot. He then contacted the office the next day and wanted to schedule a podiatry appointment. He then noted a fever of over 101 and decided to go to the emerg ency department last night. Since his arrival he has had labs taken which show and elevated white cell count of 15.9 and continued fever. A culture swab was taken of the foot. Blood cultures came back positive for infection. He was placed on 600mg Clindamycin three times a day IV. With his history of infection and ulcerations, and amputations, he is indeed concerned about the future of his foot health. 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 ULCER TOE,FOOT OPEN WOUND LOWER LIMB Hypertension 01/25/2017 Head Injury / LOC 4 YEARS AGO TOE AMPUTATION LEFT 4TH TOE, RIGHT 3RD TOE Neuropathy Past surgical history: TOE AMPUTATION LEFT 4TH TOE, RIGHT 3RD TOE Past social history: Never smoker Medications and Allergies Home Medications Medication Instructions Recorded Confirmed Type Acetaminophen [Tylenol] 1,000 mg PO TID tab 10/18/18 06/30/19 Rx docusate sodium 100 mg capsule 100 mg PO BID PRN cap 11/15/18 06/29/19 History gabapentin 300 mg capsule 300 mg PO TID #180 cap 05/16/19 06/30/19 Rx Allergies Allergy/AdvReac Type Severity Reaction Status Date / Time No Known Drug Allergies Allergy Verified 06/20/19 13:47 Physical Examination - Ankle & Foot right Ankle appearance: swelling Foot appearance: swelling, erythema Foot swelling: dorsal, plantar, lateral, toes Tenderness with palpation: none Ankle pain worse with weight bearing: No Ankle pain relieved by non-weight bearing: No Foot pain worse with weight bearing: No Foot pain relieved by non-weight bearing: No Tingling/Numbness: other (ankles) Claw toe location: toe 2 Full ROM: yes Crepitus with motion: No Assessment and Plan (1) Right foot ulcer Status: Acute Comment: due to pressure from lack of sensation due to neuropathy - Narrative A/P Narrative: Heart Inspection: No cardiac heaves or lifts. Symmetrical expansion with respiration, no other wall motions. Palpation: No thrills appreciated. Point of maximal impulse (PMI) (apical impulse) noted at midclavicular line, in fifth intercostal space. Auscultation: Normal S1 and S2, with regular rate and rhythm. S2 > S1 at the base, S1 > S2 at apex. No splitting of the heart sounds heard. No murmur. No S3 or S4, no friction rub. Lungs Lungs are clear to auscultation and percussion bilaterally No crackles heard in the lung bases bilaterally Plan: 1. MRI with and without contrast of the right foot 2. Consent for surgery: Incision and Drainage right foot (NPO at midnight tonight) 3. Continue IV ABX to culture and susceptibility Educated the patient on common possible surgery complications including but not limited to: Pain / swelling Continued Infection Deep vein Thrombosis (blood clot) Delayed healing Scarring Continued shoe difficulty Bleeding from cut blood vessels Risks in using any kind of anesthesia
--- NOTE | 2019-06-30 13:35 | Internal Med Progress Note ---
Medical - PN: Subj Patient information: Note initiated : 06/30/19 at 1:21 pm Service Date, if different from initiated Date: [] Patient: Kel Hernandez 54 y/o M admitted on 06/29/19 for concerned foot wound is infected. Chief Complaint: [] Interval history: Patient with temperature of 100 overnight. He states he feels fine. Blood cultures were +2 of 2 with gram-positive - Constitutional Vitals: Vital Signs Temp Pulse Resp BP Pulse Ox 98.9 F 78 20 108/69 96 06/30/19 12:00 06/30/19 12:00 06/30/19 12:00 06/30/19 12:00 06/30/19 12:00 Period Temp Pulse Resp BP Sys/Sweet Pulse Ox Last 24 Hr 98.0 F-103.8 F 72-130 7-22 97-141/54-81 93-98 Intake and Output 06/29/19 06/30/19 06/30/19 21:59 05:59 13:59 Intake Total 2250 1594 294 Output Total 400 Balance 2250 1194 294 Weight 210 lb 211 lb 8 oz Intake & Output: Intake & Output 06/29/19 06/30/19 06/30/19 21:59 05:59 13:59 Intake Total 2250 1594 294 Output Total 400 Balance 2250 1194 294 Weight 210 lb 211 lb 8 oz Intake: IV 2250 1054 54 Sodium Chloride 0.9% 1,000 ml @ 1000 1000 Wide Open IV [facility] Rx#: [id number] Cleocin 600 mg In Dextrose 5% 54 54 in Water 50 ml @ 100 mls/hr IV Q8H [facility] Rx#:[id number] Lactated Ringers 1,000 ml @ 1000 Wide Open IV [facility] Rx#: [id number] Vancomycin 1,000 mg In Sodium 250 Chloride 0.9% 250 ml @ 250 mls/ hr IV ONCE ONE Rx#:[id number] Oral 540 240 Output: Void Amount 400 Other: Meal Nourishment/Supplement Breakfast Percent of Meal Consumed 100% 100% Feeding Ability Independent Independent Nourishment/Supplement name Tuna Woodruff and Soup Urine Appearance Clear Urine Color Bright Yellow Urine Odor Normal - Additional findings Additional findings: General well-developed well-nourished overweight man in no acute cardiopulmonary stress he is alert oriented pleasant Skin mildly damp CV regular rate and rhythm no loud murmur Lungs clear to auscultation bilaterally Abdomen positive bowel sounds soft Calves no tenderness or pretibial edema Right foot with thickening in the forefoot mild dorsal erythema plantar ulcer unchanged with small moist but not draining ulceration 6 cm in size and surrounding erythema. This is at the base of the fourth toe. The IP knuckle of the second toe on the right foot with granulation tissue Medical - PN: Obj Da - Labs CBC & Chem 7: 06/30/19 05:00 06/30/19 05:00 Labs: Abnormal Lab Results 06/30/19 06/30/19 06/29/19 05:00 05:00 15:35 WBC 11.1 H RBC 4.52 L Hgb 13.1 L Gran % 84.5 H Lymph % (Auto) 7.5 L Gran # 9.40 H Lymph # (Auto) 0.83 L Victoria # (Auto) VBG Lactic Acid 2.6 H Calcium 8.4 L ALT 06/29/19 06/29/19 15:35 15:35 WBC 15.9 H RBC Hgb Gran % 86.5 H Lymph % (Auto) 6.0 L Gran # 13.77 H Lymph # (Auto) 0.96 L Victoria # (Auto) 1.10 H VBG Lactic Acid Calcium ALT 43 H Meds: Medications Acetaminophen (Tylenol) 1,000 mg PO TID [facility]; Protocol Last Admin: 06/30/19 09:22 Dose: 1,000 mg Documented by: Hydrocodone Bitart/Acetaminophen ([place] 5/325mg) 1 tab PO Q4HP PRN; Protocol PRN Reason: Per Pain Protocol Docusate Sodium (Colace) 100 mg PO BID [facility] Last Admin: 06/30/19 09:22 Dose: Not Given Documented by: Enoxaparin Sodium (Lovenox) 40 mg SQ DAILY [facility] Last Admin: 06/30/19 09:21 Dose: 40 mg Documented by: Gabapentin (Neurontin) 300 mg PO TID [facility] Last Admin: 06/30/19 09:22 Dose: 300 mg Documented by: Clindamycin Phosphate 600 mg/ (Dextrose) 54 mls @ 100 mls/hr IV Q8H [facility]; Protocol Last Infusion: 06/30/19 10:54 Dose: Infused Documented by: Ondansetron HCl (Zofran) 4 mg IV Q6HP PRN PRN Reason: Nausea And Vomiting Senna (Senokot) 2 tab PO HS [facility] Last Admin: 06/29/19 22:53 Dose: Not Given Documented by: Sodium Chloride (Saline Flush) 10 ml IV Q8 [facility] Last Admin: 06/30/19 06:08 Dose: Not Given Documented by: Medical - PN: A/P - Time Spent With Patient Total time spent is greater than 50% in coordination of care (as documented) at patient's floor/unit and/or counseling patient: Greater than 35 minutes (1) Right foot ulcer Problem details: due to pressure from lack of sensation due to neuropathy Status: Acute Assessment and plan: with positive blood culture and fever will obtain MRI of foot with and without contrast. Consider Echocardiogram. ESR ok. If persistent fever or bacteremia will seek echo. MRSA nasal swab negative. blood culture gram positives in chains. wound had some clusters of gram positives possible Staph. will add vanco pending ID and sensitivity. Current Visit: Yes (2) Cellulitis of right foot Problem details: mild pale Status: Acute Assessment and plan: continue Clindamycin Current Visit: Yes (3) Neuropathy of both feet Problem details: chronic non diabetic Status: Chronic Current Visit: No Medical - PN: Qual - VTE Deep Vein Thrombosis/Pulmonary Embolism Present on Admission: No
[2019-06-30] MEDS ORDERED: VANCOMYCIN PER PHARMACY IV SCH (13:44)
[2019-06-30] MEDS: VANCOMYCIN 1,500 MG in 0.9 % SODIUM CHLORIDE 500 ML IV SCH ×2 (14:58→22:44)
[2019-06-30] MEDS ORDERED: CLINDAMYCIN 600 MG/4 ML VIAL ONE (21:55)
[2019-06-30] MEDS: SENNOSIDES 1 TABLET PO SCH (22:16)
[2019-06-30] MEDS: HYDROcodone/APAP 5/325MG TABLET PO PRN (22:20)
[2019-07-01] MEDS: CLINDAMYCIN 600 MG in DEXTROSE 5% IN WATER 50 ML IV SCH (06:32)
[2019-07-01] MEDS: 0.9 % SODIUM CHLORIDE 10 ML SYRINGE IV SCH ×3 (06:32→21:14)
[2019-07-01] MEDS: DOCUSATE SODIUM 100 MG CAPSULE PO SCH ×2 (08:09→21:11)
[2019-07-01] MEDS: ACETAMINOPHEN 500 MG TABLET PO SCH ×3 (08:09→23:35)
[2019-07-01] MEDS: GABAPENTIN 300 MG CAPSULE PO SCH ×3 (08:41→21:10)
[2019-07-01] MEDS: ENOXAPARIN 40 MG/0.4 ML SYRINGE SQ SCH (08:41)
[2019-07-01] MEDS ORDERED: FLU VACC QS2019-20(6MOS UP)/PF 60 MCG/0.5 ML SYRINGE IM ONE (10:00)
[2019-07-01] MEDS: VANCOMYCIN 1,500 MG in 0.9 % SODIUM CHLORIDE 500 ML IV SCH ×2 (10:26→21:11)
--- NOTE | 2019-07-01 13:18 | Magnetic Resonance Report ---
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 Pes planus and hammertoe deformities in the remaining digits noted. No specific radiographic evidence for osteomyelitis. There is; however, severe cellulitis and fasciitis throughout the forefoot and midfoot most marked dorsally. An extremely large amount of fluid is seen within the flexor hallucis longus tendon sheath in the ankle, hind and midfoot region. The tendon itself appears unremarkable, however. Os trigonum noted - nonperfusion of the posterior talus process. There is also a large irregular spur projecting from the talar neck dorsally. IMPRESSION: 1. No evidence of osteomyelitis. Severe cellulitis and fasciitis diffusely throughout the forefoot and midfoot. No abscess 2. Marked tenosynovitis in the flexor hallucis longus tendon sheath in the ankle midfoot and hindfoot region. Tendon itself is unremarkable. 3. Third ray amputation at the phalanx base - typical postoperative appearance 4. Pes planus and hammertoe deformities in the remaining digits. Os trigonum. Interpreted and Authenticated by: Lyle Jerome 07/01/19
--- NOTE | 2019-07-01 14:05 | Orthopedic Progress Note ---
Subjective Patient information: Note initiated : 07/01/19 at 2:03 pm Service Date, if different from initiated Date: [] Patient: Kel Hernandez 54 y/o M admitted on 06/29/19 for concerned foot wound is infected. Chief Complaint: [Foot infection] Principal diagnosis: cellulitis right foot Interval history: No changes in fever, chill, nausea or vomiting Objective Vital signs: Vital Signs Temp Pulse Resp BP BP Pulse Ox 07/01/19 12:00 98.4 F 74 18 126/68 96 07/01/19 08:00 98.8 F 76 18 114/70 93 07/01/19 04:40 98.2 F 72 16 118/76 96 06/30/19 23:16 99.2 F H 89 18 116/67 95 06/30/19 19:47 100.4 F H 99 H 20 110/65 94 06/30/19 16:00 99.8 F H 95 H 18 104/62 96 Intake and Output 07/01/19 07/01/19 07/01/19 05:59 13:59 21:59 Intake Total 1154 554 Output Total 0 Balance 1154 554 Intake: IV 554 554 Cleocin 600 mg In Dextrose 5% 54 54 in Water 50 ml @ 100 mls/hr IV Q8H [facility] Rx#:[id number] Vancomycin 1,500 mg In Sodium 500 500 Chloride 0.9% 500 ml @ 333.3 mls/hr IV Q12H [facility] Rx#: [id number] Oral 600 Output: Void Amount 0 Other: # Voids 3 Intake & Output: Intake & Output 07/01/19 07/01/19 07/01/19 05:59 13:59 21:59 Intake Total 1154 554 Output Total 0 Balance 1154 554 Intake: IV 554 554 Cleocin 600 mg In Dextrose 5% 54 54 in Water 50 ml @ 100 mls/hr IV Q8H [facility] Rx#:[id number] Vancomycin 1,500 mg In Sodium 500 500 Chloride 0.9% 500 ml @ 333.3 mls/hr IV Q12H [facility] Rx#: [id number] Oral 600 Output: Void Amount 0 Other: # Voids 3 Incision: Yes red, Yes swollen, Yes inflamed (foot is swollen) - Labs CBC & BMP: 06/30/19 05:00 06/30/19 05:00 Labs: 06/30/19 06/29/19 05:00 15:35 Hgb 13.1 L 15.6 Hct 41.1 46.9 Assessment and Plan (1) Right foot ulcer Status: Acute Priority: High Comment: due to pressure from lack of sensation due to neuropathy - Narrative A/P Narrative: Edema noted on MRI but no distinct abscess to drain. Surgery for I&D postponed. Continue antibiotics.
[2019-07-01] MEDS: cefTRIAXone 2 GM in DEXTROSE 5% IN WATER 50 ML IV SCH (14:26)
[2019-07-01] MEDS: HYDROcodone/APAP 5/325MG TABLET PO PRN (18:32)
[2019-07-01] MEDS: SENNOSIDES 1 TABLET PO SCH (21:11)
--- NOTE | 2019-07-01 21:24 | Infectious Disease Consult ---
History of Present Illness Patient information: Note initiated : 07/01/19 at 9:13 pm Service Date, if different from initiated Date: [] Patient: Kel Hernandez 54 y/o M admitted on 06/29/19 for concerned foot wound is infected. Chief Complaint: [] Consult date: 07/01/19 Requesting Physician: Kleber Elias MD Reason for Consult: GPC bacteremia Chief complaint: my right foot hurts History of present illness: 54 year old man well known to me from past clinic visits with PMHx of: - DM2 with peripheral neuropathy - Left foot penetrating wound with moderate cellulitis/fasciitis in the forefoot particularly the fourth and fifth rays. 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 He noticed a new sore on bottom of his right foot last , which was accompanied with swelling and fever of up to 103F and chills. Per Podiatry, pt has been using modified shoes and pads to protect the high pressure areas. He subseq went to ER on 06/29 and was found to have low grade fever, WBC 15.9 and Lactate of 2.6. Blood Cx sent and wound Cx obtained. He has been on IV Vanc and IV Clindamycin. He reports same pain in right foot, feels his redness has worsened slightly. Denies any fever, chills, n/v, diarrhea. Denies any stepping on nail, contact with pets. 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[place], [place] Medications and Allergies Home Medications Medication Instructions Recorded Confirmed Type Acetaminophen [Tylenol] 1,000 mg PO TID tab 10/18/18 06/30/19 Rx docusate sodium 100 mg capsule 100 mg PO BID PRN cap 11/15/18 06/29/19 History gabapentin 300 mg capsule 300 mg PO TID #180 cap 05/16/19 06/30/19 Rx Allergies Allergy/AdvReac Type Severity Reaction Status Date / Time No Known Drug Allergies Allergy Verified 06/20/19 13:47 Physical Examination Vital signs: Temp Pulse Resp BP Pulse Ox 36.8 C 81 16 121/74 96 07/01/19 19:29 07/01/19 19:29 07/01/19 19:29 07/01/19 19:29 07/01/19 19:29 General appearance: no acute distress Eyes pulmonary: nonicteric ENT: oropharynx moist Cardiovascular: regular rate and rhythm, other (no murmurs) Gastrointestinal: normoactive bowel sounds, non-tender Extremities: other (right foot is swollen with redness, tenderness, no open ulcer or drainage. callus on plantar aspect. pain with movements of forefoot and ankle. Minimal ankle swelling) Results - Laboratory Findings CBC and BMP: 06/30/19 05:00 06/30/19 05:00 Abnormal lab findings: Abnormal Labs 06/29/19 06/29/19 06/29/19 15:35 15:35 15:35 WBC 15.9 H RBC Hgb Gran % 86.5 H Lymph % (Auto) 6.0 L Gran # 13.77 H Lymph # (Auto) 0.96 L [place] # (Auto) 1.10 H VBG Lactic Acid 2.6 H Calcium ALT 43 H 06/30/19 06/30/19 05:00 05:00 WBC 11.1 H RBC 4.52 L Hgb 13.1 L Gran % 84.5 H Lymph % (Auto) 7.5 L Gran # 9.40 H Lymph # (Auto) 0.83 L [place] # (Auto) VBG Lactic Acid Calcium 8.4 L ALT Microbiology: Microbiology 06/29/19 20:09 Foot - Right Gram Stain - Final 06/29/19 20:09 Foot - Right Wound Culture - Preliminary Staphylococcus lugdunensis 06/29/19 15:45 Blood Blood Culture - Preliminary Alpha strep Gram positive cocci 06/29/19 15:35 Blood Blood Culture - Preliminary Gram positive cocci 06/29/19 23:33 Nose - Both Right and Left MRSA (PCR) - Final Assessment and Plan - Narrative A/P Narrative: A: 1. Polymicrobial bacteremia with Streptococcus mitis, Staphylococcus lugdunensis: - 06/30 blood Cx positive on 06/29/19 - source is right foot cellulitis without osteomyelitis 2. Rt foot cellulitis and tenosynovitis of flexor hallucis longus: wound Cx growing Staph lugdunensis - entry site seems the callus on plantar aspect of the foot - no evidence of abscess or necrotizing infection on MRI Recommendations: - Stop IV Clindamycin - Start IV Ceftriaxone 2 gm q24 hrs - Continue IV Vanc per pharmacy dosing. Vanc trough of 10.1 noted. IV Vanc dose should be increased - Repeat blood Cx today. Order placed - TTE ordered - will modify antibiotics once sensi on Staph lugdunensis are available - counseled to elevate his right foot and lower leg when supine. will follow Brody Hutchison MD Infectious diseases
[2019-07-02] MEDS: HYDROcodone/APAP 5/325MG TABLET PO PRN ×2 (03:09→20:20)
[2019-07-02] MEDS: cefTRIAXone 2 GM in DEXTROSE 5% IN WATER 50 ML IV SCH (08:21)
[2019-07-02] MEDS: ENOXAPARIN 40 MG/0.4 ML SYRINGE SQ SCH (08:22)
[2019-07-02] MEDS: GABAPENTIN 300 MG CAPSULE PO SCH ×3 (08:22→20:19)
[2019-07-02] MEDS: ACETAMINOPHEN 500 MG TABLET PO SCH ×3 (08:22→21:00)
[2019-07-02] MEDS: DOCUSATE SODIUM 100 MG CAPSULE PO SCH ×2 (08:41→20:19)
[2019-07-02] MEDS: 0.9 % SODIUM CHLORIDE 10 ML SYRINGE IV SCH ×3 (09:56→20:19)
--- NOTE | 2019-07-02 10:10 | Orthopedic Progress Note ---
Subjective Patient information: Note initiated : 07/02/19 at 10:07 am Service Date, if different from initiated Date: [] Patient: Kel Hernandez 54 y/o M admitted on 06/29/19 for concerned foot wound is infected. Chief Complaint: [Right foot infection] Principal diagnosis: cellulitis right foot Interval history: No new issues past 24 hours. Feels like foot is a little less swollen. Pertinent ROS: No f,c,n,v changes Objective Vital signs: Vital Signs Temp Pulse Resp BP BP Pulse Ox 07/02/19 08:00 97.7 F 67 18 107/71 95 07/02/19 02:59 97.9 F 63 16 122/82 95 07/01/19 23:25 98.4 F 69 16 119/74 95 07/01/19 19:29 98.3 F 81 16 121/74 96 07/01/19 16:00 98.7 F 82 18 119/73 93 07/01/19 12:00 98.4 F 74 18 126/68 96 Intake and Output 07/01/19 07/02/19 07/02/19 21:59 05:59 13:59 Intake Total 50 1000 Output Total 1200 900 Balance -1150 1000 -900 Intake: IV 50 Rocephin 2 gm In Dextrose 5% in 50 Water 50 ml @ 100 mls/hr IV Q24H [facility] Rx#:[id number] Oral 1000 Output: Void Amount 1200 900 Other: Urine Appearance Clear Urine Color Straw Urine Odor Normal # Voids 2 Weight 217 lb Intake & Output: Intake & Output 07/01/19 07/02/19 07/02/19 21:59 05:59 13:59 Intake Total 50 1000 Output Total 1200 900 Balance -1150 1000 -900 Weight 217 lb Intake: IV 50 Rocephin 2 gm In Dextrose 5% in 50 Water 50 ml @ 100 mls/hr IV Q24H [facility] Rx#:[id number] Oral 1000 Output: Void Amount 1200 900 Other: Urine Appearance Clear Urine Color Straw Urine Odor Normal # Voids 2 Incision: Yes red, Yes swollen, Yes inflamed (improvement from yesterday) - Periperhal Pulses Peripheral pulses: 2+: dorsalis pedis (L), dorsalis pedis (R), femoral (R), posterior tibialis (L) - Labs CBC & BMP: 06/30/19 05:00 02/02/20 05:00 Labs: 06/30/19 06/29/19 05:00 15:35 Hgb 13.1 L 15.6 Hct 41.1 46.9 Assessment and Plan (1) Right foot ulcer Status: Acute Priority: Medium Comment: due to pressure from lack of sensation due to neuropathy - Narrative A/P Narrative: Patient is disappointed that he needs to stay in the hospital. He understands that this is a serious issue and he needs to be in the hospital for optimal treatment. Podiatry will continue to visit patient daily while admitted for follow changes. Possible I&D should abscess form in foot.
[2019-07-02] MEDS: VANCOMYCIN 1,500 MG in 0.9 % SODIUM CHLORIDE 500 ML IV SCH (10:43)
--- NOTE | 2019-07-02 14:40 | Internal Med Progress Note ---
Medical - PN: Subj Patient information: Note initiated : 07/02/19 at 2:38 pm Service Date, if different from initiated Date: [] Patient: Kel Hernandez 54 y/o M admitted on 06/29/19 for concerned foot wound is infected. Chief Complaint: [] Interval history: Patient with worsening swelling of his foot yesterday but today is improved. His blood cultures grew staph but not MRSA. Patient is followed by Dr. Hutchison from infectious disease and also Dr. Mata podiatry. Patient reports fevers have resolved. He feels okay at this time. He is anxious regarding his foot and also - Constitutional Vitals: Vital Signs Temp Pulse Resp BP Pulse Ox 97.8 F 77 18 113/62 95 07/02/19 12:00 07/02/19 12:00 07/02/19 12:00 07/02/19 12:00 07/02/19 12:00 Period Temp Pulse Resp BP Sys/Sweet Pulse Ox Last 24 Hr 97.7 F-98.7 F 63-82 16-18 107-122/62-82 93-96 Intake and Output 07/02/19 07/02/19 07/02/19 05:59 13:59 21:59 Intake Total 1500 240 Output Total 900 Balance 1500 -660 Intake & Output: Intake & Output 07/02/19 07/02/19 07/02/19 05:59 13:59 21:59 Intake Total 1500 240 Output Total 900 Balance 1500 -660 Intake: IV 500 Vancomycin 1,500 mg In Sodium 500 Chloride 0.9% 500 ml @ 333.3 mls/hr IV Q12H [facility] Rx#: [id number] Oral 1000 240 Output: Void Amount 900 Other: Meal Lunch Percent of Meal Consumed 100% Feeding Ability Assist with Tray Set Up # Voids 2 - Additional findings Additional findings: General well-developed well-nourished male overweight. CV regular rate and rhythm Lungs clear to auscultation bilaterally Right foot still some dorsal erythema on the foot but decrease in erythema intensity. Swelling also down. Second toe less sausagelike and smaller than yesterday. The fourth toe mildly erythematous. Patient has no sensation in his foot to touch. Medical - PN: Obj Da - Labs CBC & Chem 7: 06/30/19 05:00 06/30/19 05:00 Labs: Abnormal Lab Results 06/30/19 06/30/19 06/29/19 05:00 05:00 15:35 WBC 11.1 H RBC 4.52 L Hgb 13.1 L Gran % 84.5 H Lymph % (Auto) 7.5 L Gran # 9.40 H Lymph # (Auto) 0.83 L [place] # (Auto) VBG Lactic Acid 2.6 H Calcium 8.4 L ALT 06/29/19 06/29/19 15:35 15:35 WBC 15.9 H RBC Hgb Gran % 86.5 H Lymph % (Auto) 6.0 L Gran # 13.77 H Lymph # (Auto) 0.96 L [place] # (Auto) 1.10 H VBG Lactic Acid Calcium ALT 43 H Meds: Medications Acetaminophen (Tylenol) 1,000 mg PO TID [facility]; Protocol Last Admin: 07/02/19 08:22 Dose: 1,000 mg Documented by: Hydrocodone Bitart/Acetaminophen ([place] 5/325mg) 1 tab PO TIDP PRN; Protocol PRN Reason: Per Pain Protocol Last Admin: 07/02/19 03:09 Dose: 1 tab Documented by: Docusate Sodium (Colace) 100 mg PO BID [facility] Last Admin: 07/02/19 08:41 Dose: Not Given Documented by: Enoxaparin Sodium (Lovenox) 40 mg SQ DAILY [facility] Last Admin: 07/02/19 08:22 Dose: 40 mg Documented by: Gabapentin (Neurontin) 300 mg PO TID [facility] Last Admin: 07/02/19 08:22 Dose: 300 mg Documented by: Vancomycin HCl 1,500 mg/ (Sodium Chloride) 500 mls @ 333.3 mls/hr IV Q12H [facility] Last Admin: 07/02/19 10:43 Dose: 333 mls/hr Documented by: Ceftriaxone Sodium 2 gm/ (Dextrose) 50 mls @ 100 mls/hr IV Q24H [facility]; Protocol Last Admin: 07/02/19 08:21 Dose: 100 mls/hr Documented by: Morphine Sulfate (Morphine) 2 mg IV Q4HP PRN; Protocol PRN Reason: Per Pain Protocol Last Admin: 07/01/19 14:07 Dose: 2 mg Documented by: Ondansetron HCl (Zofran) 4 mg IV Q6HP PRN PRN Reason: Nausea And Vomiting Senna (Senokot) 2 tab PO HS [facility] Last Admin: 07/01/19 21:11 Dose: Not Given Documented by: Sodium Chloride (Saline Flush) 10 ml IV Q8 [facility] Last Admin: 07/02/19 09:56 Dose: Not Given Documented by: Vancomycin HCl (Vancomycin Per Pharmacy) 1 order IV UD [facility]; Protocol Medical - PN: A/P - Time Spent With Patient Total time spent is greater than 50% in coordination of care (as documented) at patient's floor/unit and/or counseling patient: 25 - 35 minutes (1) Right foot ulcer Problem details: due to pressure from lack of sensation due to neuropathy Status: Acute Assessment and plan: with positive blood culture and fever will obtain MRI of foot with and without contrast. Consider Echocardiogram. ESR ok. If persistent fever or bacteremia will seek echo. MRSA nasal swab negative. blood culture gram positives in chains. wound had some clusters of gram positives possible Staph. will add vanco pending ID and sensitivity. Appears to not be MRSA but sensitivities are pending. Continue with Rocephin and vancomycin pending adjustment by Dr. Hutchison Current Visit: Yes (2) Cellulitis of right foot Problem details: mild pale Status: Acute Assessment and plan: Had bacteremia treated aggressively with Rocephin and vancomycin Current Visit: Yes (3) Neuropathy of both feet Problem details: chronic non diabetic Status: Chronic Current Visit: No (4) Bacteremia due to Staphylococcus aureus Problem details: Mild elevation lactic acid rapidly resolved. Patient is doing well however still checking to see if blood cultures will be negative. May need echocardiogram imaging of the foot did not show abscess. Status: Acute Current Visit: Yes Medical - PN: Qual - VTE Deep Vein Thrombosis/Pulmonary Embolism Present on Admission: No
--- NOTE | 2019-07-02 14:50 | Internal Med Progress Note ---
Medical - PN: Subj Patient information: Note initiated : 07/02/19 at 2:44 pm Service Date, if different from initiated Date: [] Patient: Kel Hernandez a 54 y/o M admitted on 06/29/19 for concerned foot wound is infected. Chief Complaint: [] Interval history: Mr. Hernandez is a 54 year old M has severe non diabetic peripheral neuropathy. 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 He has decreased sensation in all 4 distal ext but in feet is severe no light sensation both feet below the ankles. Pt has not had fever or chills but noticed erythema because examines feet daily to prevent limb loss. was wearing shoes whole time. no pain but no sensation. 2/2 Patient with temperature of 100 overnight. He states he feels fine. Blood cultures were +2 of 2 with gram-positive 2/ Patient with worsening swelling of his foot yesterday but today is improved. His blood cultures grew staph but not MRSA. Patient is followed by Dr. Hutchison from infectious disease and also Dr. Mata podiatry. Patient reports fevers have resolved. He feels okay at this time. He is an xious regarding his foot and also 2/5 - Constitutional Vitals: Vital Signs Temp Pulse Resp BP Pulse Ox 97.8 F 77 18 113/62 95 07/02/19 12:00 07/02/19 12:00 07/02/19 12:00 07/02/19 12:00 07/02/19 12:00 Period Temp Pulse Resp BP Sys/Sweet Pulse Ox Last 24 Hr 97.7 F-98.7 F 63-82 16-18 107-122/62-82 93-96 Intake and Output 07/02/19 07/02/19 07/02/19 05:59 13:59 21:59 Intake Total 1500 240 Output Total 900 Balance 1500 -660 Intake & Output: Intake & Output 07/02/19 07/02/19 07/02/19 05:59 13:59 21:59 Intake Total 1500 240 Output Total 900 Balance 1500 -660 Intake: IV 500 Vancomycin 1,500 mg In Sodium 500 Chloride 0.9% 500 ml @ 333.3 mls/hr IV Q12H [facility] Rx#: [id number] Oral 1000 240 Output: Void Amount 900 Other: Meal Lunch Percent of Meal Consumed 100% Feeding Ability Assist with Tray Set Up # Voids 2 Exam: General: Alert, Awake, No acute Distress Eyes/N/T: EOMI, Head/Neck: neck supple, CV: RRR, No murmurs, Pulm: Clear b/l, no wheezing/rhonchi/rales Abd: soft, nontender, +BS x4 Ext: no clubbing/cyanosis/edema with exception of right foot which is erythematous and swollen Neuro: Alert, decreased sensation to right foot, moves all extremities, Skin: warm/dry Medical - PN: Obj Da - Labs CBC & Chem 7: 06/30/19 05:00 06/30/19 05:00 Labs: Abnormal Lab Results 06/30/19 06/30/19 06/29/19 05:00 05:00 15:35 WBC 11.1 H RBC 4.52 L Hgb 13.1 L Gran % 84.5 H Lymph % (Auto) 7.5 L Gran # 9.40 H Lymph # (Auto) 0.83 L [place] # (Auto) VBG Lactic Acid 2.6 H Calcium 8.4 L ALT 06/29/19 06/29/19 15:35 15:35 WBC 15.9 H RBC Hgb Gran % 86.5 H Lymph % (Auto) 6.0 L Gran # 13.77 H Lymph # (Auto) 0.96 L [place] # (Auto) 1.10 H VBG Lactic Acid Calcium ALT 43 H Meds: Medications Acetaminophen (Tylenol) 1,000 mg PO TID [facility]; Protocol Last Admin: 07/02/19 08:22 Dose: 1,000 mg Documented by: Hydrocodone Bitart/Acetaminophen ([place] 5/325mg) 1 tab PO TIDP PRN; Protocol PRN Reason: Per Pain Protocol Last Admin: 07/02/19 03:09 Dose: 1 tab Documented by: Docusate Sodium (Colace) 100 mg PO BID [facility] Last Admin: 07/02/19 08:41 Dose: Not Given Documented by: Enoxaparin Sodium (Lovenox) 40 mg SQ DAILY [facility] Last Admin: 07/02/19 08:22 Dose: 40 mg Documented by: Gabapentin (Neurontin) 300 mg PO TID [facility] Last Admin: 07/02/19 08:22 Dose: 300 mg Documented by: Vancomycin HCl 1,500 mg/ (Sodium Chloride) 500 mls @ 333.3 mls/hr IV Q12H [facility] Last Admin: 07/02/19 10:43 Dose: 333 mls/hr Documented by: Ceftriaxone Sodium 2 gm/ (Dextrose) 50 mls @ 100 mls/hr IV Q24H [facility]; Protocol Last Admin: 07/02/19 08:21 Dose: 100 mls/hr Documented by: Morphine Sulfate (Morphine) 2 mg IV Q4HP PRN; Protocol PRN Reason: Per Pain Protocol Last Admin: 07/01/19 14:07 Dose: 2 mg Documented by: Ondansetron HCl (Zofran) 4 mg IV Q6HP PRN PRN Reason: Nausea And Vomiting Senna (Senokot) 2 tab PO HS [facility] Last Admin: 07/01/19 21:11 Dose: Not Given Documented by: Sodium Chloride (Saline Flush) 10 ml IV Q8 [facility] Last Admin: 07/02/19 09:56 Dose: Not Given Documented by: Vancomycin HCl (Vancomycin Per Pharmacy) 1 order IV UD [facility]; Protocol Medical - PN: A/P - Time Spent With Patient Total time spent is greater than 50% in coordination of care (as documented) at patient's floor/unit and/or counseling patient: - Narrative A/P Narrative: Assessment: *Right foot ulcer/cellulitis: -leukocytosis improved *neuropathy, b/l foot: *Bacteremia(strep/staph): * Plan: -Dr. Mata following -Dr. hutchison following, on vanco -echo pending -serial BC - - -pt/ot -ppx: lovenox full code Medical - PN: Qual - VTE Deep Vein Thrombosis/Pulmonary Embolism Present on Admission: No
--- NOTE | 2019-07-02 19:36 | Infectious Disease Prog Note ---
Subjective Patient information: Note initiated : 07/02/19 at 7:26 pm Service Date, if different from initiated Date: [] Patient: Kel Hernandez 54 y/o M admitted on 06/29/19 for concerned foot wound is infected. Chief Complaint: [] Principal diagnosis: cellulitis right foot Interval history: Pt feeling better. Denies any fever, chills, n/v, diarrhea. Mentions that his foot is less swollen, less painful than before. Discussed plans for midline placement once blood Cx from last night are neg for 2 days. Objective Objective Narrative: ao x 3, in nad no thrush chest cta s1 s2 normal, no murmurs auscultated bs ++ nttd the right foot: has wrinkles, less red and swollen compared to yesterday, no drainage. There is redness at the base of 3rd and 4th interdigital space, callus on plantar aspect. dorsalis pedis palpable. - Vital Signs Vital signs: Vital Signs Temp Pulse Resp BP BP Pulse Ox 07/02/19 19:25 36.8 C 67 18 134/76 100 07/02/19 16:00 36.8 C 67 18 109/65 96 07/02/19 12:00 36.6 C 77 18 113/62 95 07/02/19 08:00 36.5 C 67 18 107/71 95 07/02/19 02:59 36.6 C 63 16 122/82 95 07/01/19 23:25 36.9 C 69 16 119/74 95 07/01/19 19:29 36.8 C 81 16 121/74 96 Intake and Output 07/02/19 07/02/19 07/02/19 05:59 13:59 21:59 Intake Total 8017 880 0571 Output Total 900 Balance 1500 -660 1999 Intake: IV 500 Vancomycin 1,500 mg In Sodium 500 Chloride 0.9% 500 ml @ 333.3 mls/hr IV Q12H [facility] Rx#: [id number] Oral 2219 817 [id number] Output: Void Amount 900 Other: Meal Lunch Dinner Percent of Meal Consumed 100% 100% Feeding Ability Assist with Tray Set Up Independent Stool Size Moderate Stool Color Brown Stool Consistency Soft # Voids 2 4 # Bowel Movements 1 Intake & Output: Intake & Output 07/02/19 07/02/19 07/02/19 05:59 13:59 21:59 Intake Total 9499 070 1156 Output Total 900 Balance 1500 -660 2000 Intake: IV 500 Vancomycin 1,500 mg In Sodium 500 Chloride 0.9% 500 ml @ 333.3 mls/hr IV Q12H [facility] Rx#: [id number] Oral [id number] Output: Void Amount 900 Other: Meal Lunch Dinner Percent of Meal Consumed 100% 100% Feeding Ability Assist with Tray Set Up Independent Stool Size Moderate Stool Color Brown Stool Consistency Soft # Voids 2 4 # Bowel Movements 1 - Lab 06/30/19 05:00 06/30/19 05:00 Most recent lab results Calcium 8.4 mg/dl (8.6-10.4) L 06/30/19 05:00 Microbiology 06/29/19 15:45 Blood Blood Culture - Preliminary Alpha strep Staphylococcus lugdunensis 06/29/19 20:09 Foot - Right Gram Stain - Final 06/29/19 20:09 Foot - Right Wound Culture - Preliminary Staphylococcus lugdunensis 06/29/19 15:35 Blood Blood Culture - Preliminary Gram positive cocci 06/29/19 23:33 Nose - Both Right and Left MRSA (PCR) - Final Medications Active Medications: Acetaminophen (Tylenol) 1,000 mg PO TID [facility]; Protocol Last Admin: 07/02/19 15:01 Dose: 1,000 mg Documented by: [id number] Admin: 07/02/19 08:22 Dose: 1,000 mg Documented by: Admin: 07/01/19 23:35 Dose: 1,000 mg Documented by: YI Comments: slide time d/t norco Admin: 07/01/19 15:23 Dose: 1,000 mg Documented by: Admin: 07/01/19 08:09 Dose: Not Given Documented by: KIERSTEN Non-Admin Reason: NPO Admin: 06/30/19 22:16 Dose: Not Given Documented by: YI Non-Admin Reason: gave [place] Admin: 06/30/19 17:51 Dose: 1,000 mg Documented by: [email or web address] Admin: 06/30/19 09:22 Dose: 1,000 mg Documented by: [id number] Admin: 06/29/19 22:52 Dose: 1,000 mg Documented by: NSTOVER Hydrocodone Bitart/Acetaminophen ([place] 5/325mg) 1 tab PO TIDP PRN; Protocol PRN Reason: Per Pain Protocol Last Admin: 07/02/19 03:09 Dose: 1 tab Documented by: Admin: 07/01/19 18:32 Dose: 1 tab Documented by: Admin: 06/30/19 22:20 Dose: 1 tab Documented by: YI Docusate Sodium (Colace) 100 mg PO BID [facility] Last Admin: 07/02/19 08:41 Dose: Not Given Documented by: BHANU Non-Admin Reason: Patient Refused Admin: 07/01/19 21:11 Dose: Not Given Documented by: YI Non-Admin Reason: Patient Refused Admin: 07/01/19 08:09 Dose: Not Given Documented by: KIERSTEN Non-Admin Reason: NPO Admin: 06/30/19 22:16 Dose: Not Given Documented by: YI Non-Admin Reason: Patient Refused Admin: 06/30/19 09:22 Dose: Not Given Documented by: ANNE Non-Admin Reason: Patient Refused Admin: 06/29/19 22:54 Dose: Not Given Documented by: NORMAN Non-Admin Reason: Patient Refused Enoxaparin Sodium (Lovenox) 40 mg SQ DAILY [facility] Last Admin: 07/02/19 08:22 Dose: 40 mg Documented by: Admin: 07/01/19 08:41 Dose: Not Given Documented by: KIERSTEN Non-Admin Reason: holding for surgery Admin: 06/30/19 09:21 Dose: 40 mg Documented by: ANNE Gabapentin (Neurontin) 300 mg PO TID [facility] Last Admin: 07/02/19 15:01 Dose: 300 mg Documented by: Admin: 07/02/19 08:22 Dose: 300 mg Documented by: Admin: 07/01/19 21:10 Dose: 300 mg Documented by: Admin: 07/01/19 14:08 Dose: 300 mg Documented by: Admin: 07/01/19 08:41 Dose: 300 mg Documented by: Admin: 06/30/19 22:14 Dose: 300 mg Documented by: Admin: 06/30/19 16:47 Dose: 300 mg Documented by: Admin: 06/30/19 09:22 Dose: 300 mg Documented by: Admin: 06/29/19 22:52 Dose: 300 mg Documented by: NORMAN Cefazolin Sodium 2 gm/ (Dextrose) 50 mls @ 100 mls/hr IV Q8H [facility]; Protocol Morphine Sulfate (Morphine) 2 mg IV Q4HP PRN; Protocol PRN Reason: Per Pain Protocol Last Admin: 07/01/19 14:07 Dose: 2 mg Documented by: Admin: 07/01/19 06:29 Dose: 2 mg Documented by: YI Ondansetron HCl (Zofran) 4 mg IV Q6HP PRN PRN Reason: Nausea And Vomiting Senna (Senokot) 2 tab PO HS [facility] Last Admin: 07/01/19 21:11 Dose: Not Given Documented by: YI Non-Admin Reason: Patient Refused Admin: 06/30/19 22:16 Dose: Not Given Documented by: YI Non-Admin Reason: Patient Refused Admin: 06/29/19 22:53 Dose: Not Given Documented by: NORMAN Non-Admin Reason: Patient Refused Sodium Chloride (Saline Flush) 10 ml IV Q8 [facility] Last Admin: 07/02/19 15:02 Dose: 10 ml Documented by: Admin: 07/02/19 09:56 Dose: Not Given Documented by: BHANU Non-Admin Reason: noc shift Admin: 07/01/19 21:14 Dose: 10 ml Documented by: Admin: 07/01/19 14:07 Dose: 10 ml Documented by: Admin: 07/01/19 06:32 Dose: 10 ml Documented by: Admin: 06/30/19 22:16 Dose: 10 ml Documented by: Admin: 06/30/19 17:10 Dose: 10 ml Documented by: [email or web address] Admin: 06/30/19 14:58 Dose: 10 ml Documented by: [email or web address] Admin: 06/30/19 06:08 Dose: Not Given Documented by: NORMAN Non-Admin Reason: Patient Asleep Admin: 06/29/19 22:53 Dose: 10 ml Documented by: NORMAN Assessment and Plan - Narrative A/P Narrative: A: 1. Polymicrobial bacteremia with Streptococcus mitis, Staphylococcus lugdunensis: both sensitive to Cefazolin - 2/2 blood Cx positive on 06/29/19, blood Cx from 07/01 neg so far - TTE neg for any vegetations - source is right foot cellulitis without osteomyelitis 2. Rt foot cellulitis and tenosynovitis of flexor hallucis longus: wound Cx growing Staph lugdunensis - entry site seems the callus on plantar aspect of the foot - no evidence of abscess or necrotizing infection on MRI Recommendations: - Stop IV Vanc and IV ceftriaxone - Start IV Cefazolin 2 gm q8 hrs. If blood Cx from 07/01 stay negative by tomorrow night; pt should get a midline placement on monday morning. He could then finish a 2 week course of IV Cefazolin 2 gm q8 hrs through CADD pump, with stop date of 07/14/19 - counseled to elevate his right foot and lower leg when supine. will follow Brody Hutchison MD Infectious diseases
[2019-07-02] MEDS: SENNOSIDES 1 TABLET PO SCH (20:19)
[2019-07-03] MEDS ORDERED: ceFAZolin 1 GM VIAL ONE (06:21)
[2019-07-03] MEDS: 0.9 % SODIUM CHLORIDE 10 ML SYRINGE IV SCH ×3 (06:28→22:13)
[2019-07-03] MEDS: ceFAZolin 2 GM in DEXTROSE 5% IN WATER 50 ML IV SCH ×3 (06:28→22:14)
--- NOTE | 2019-07-03 06:46 | Internal Med Progress Note ---
Medical - PN: Subj Patient information: Note initiated : 07/03/19 at 6:43 am Service Date, if different from initiated Date: [] Patient: Kel Hernandez a 54 y/o M admitted on 06/29/19 for concerned foot wound is infected. Chief Complaint: [] Interval history: Mr. Hernandez is a 54 year old M has severe non diabetic peripheral neuropathy. 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 He has decreased sensation in all 4 distal ext but in feet is severe no light sensation both feet below the ankles. Pt has not had fever or chills but noticed erythema because examines feet daily to prevent limb loss. was wearing shoes whole time. no pain but no sensation. 2/2 Patient with temperature of 100 overnight. He states he feels fine. Blood cultures were +2 of 2 with gram-positive 2/4 Patient with worsening swelling of his foot yesterday but today is improved. His blood cultures grew staph but not MRSA. Patient is followed by Dr. Hutchison from infectious disease and also Dr. Maat podiatry. Patient reports fevers have resolved. He feels okay at this time. He is an xious regarding his foot and also 2/5 Feeling well. Redness and swelling per patient is improved in the toe. No new complaints other than ready to get out here. Review of Systems: denies headache/fever/chills/nausea/vomiting/chest or abdominal pain/cough/dyspnea/diarrhea. Otherwise see above. - Constitutional Vitals: Vital Signs Temp Pulse Resp BP Pulse Ox 97.9 F 67 16 125/76 95 07/03/19 03:51 07/03/19 03:51 07/03/19 03:51 07/03/19 03:51 07/03/19 03:51 Period Temp Pulse Resp BP Sys/Sweet Pulse Ox Last 24 Hr 97.7 F-98.2 F 67-77 16-18 107-134/62-76 95-100 Intake and Output 07/02/19 07/03/19 07/03/19 21:59 05:59 13:59 Intake Total 2550 400 Output Total 0 Balance 2550 400 Weight 96.162 kg Intake & Output: Intake & Output 07/02/19 07/03/19 07/03/19 21:59 05:59 13:59 Intake Total 2550 400 Output Total 0 Balance 2550 400 Weight 96.162 kg Intake: IV 550 Vancomycin 1,500 mg In Sodium 500 Chloride 0.9% 500 ml @ 333.3 mls/hr IV Q12H [facility] Rx#: [id number] Rocephin 2 gm In Dextrose 5% in 50 Water 50 ml @ 100 mls/hr IV Q24H [facility] Rx#:[id number] Oral 2000 400 Output: Void Amount 0 Other: Meal Dinner Percent of Meal Consumed 100% Feeding Ability Independent Stool Size Moderate Stool Color Brown Stool Consistency Soft # Voids 4 # Bowel Movements 1 Exam: General: Alert, Awake, No acute Distress Eyes/N/T: EOMI, Head/Neck: neck supple, CV: RRR, No murmurs, Pulm: Clear b/l, no wheezing/rhonchi/rales Abd: soft, nontender, +BS x4 Ext: no clubbing/cyanosis/edema with exception of right foot which is erythematous and swollen but improved per patient Neuro: Alert, decreased sensation to right foot, moves all extremities, Skin: warm/dry Medical - PN: Obj Da - Labs CBC & Chem 7: 07/03/19 05:20 07/03/19 05:20 Labs: Abnormal Lab Results 06/30/19 05:00 Calcium 8.4 L Meds: Medications Acetaminophen (Tylenol) 1,000 mg PO TID [facility]; Protocol Last Admin: 07/02/19 21:00 Dose: Not Given Documented by: Hydrocodone Bitart/Acetaminophen ([place] 5/325mg) 1 tab PO TIDP PRN; Protocol PRN Reason: Per Pain Protocol Last Admin: 07/02/19 20:20 Dose: 1 tab Documented by: Docusate Sodium (Colace) 100 mg PO BID [facility] Last Admin: 07/02/19 20:19 Dose: Not Given Documented by: Enoxaparin Sodium (Lovenox) 40 mg SQ DAILY [facility] Last Admin: 07/02/19 08:22 Dose: 40 mg Documented by: Gabapentin (Neurontin) 300 mg PO TID [facility] Last Admin: 07/02/19 20:19 Dose: 300 mg Documented by: Cefazolin Sodium 2 gm/ (Dextrose) 50 mls @ 100 mls/hr IV Q8H [facility]; Protocol Last Admin: 07/03/19 06:28 Dose: Not Given Documented by: Morphine Sulfate (Morphine) 2 mg IV Q4HP PRN; Protocol PRN Reason: Per Pain Protocol Last Admin: 07/01/19 14:07 Dose: 2 mg Documented by: Ondansetron HCl (Zofran) 4 mg IV Q6HP PRN PRN Reason: Nausea And Vomiting Senna (Senokot) 2 tab PO HS [facility] Last Admin: 07/02/19 20:19 Dose: Not Given Documented by: Sodium Chloride (Saline Flush) 10 ml IV Q8 [facility] Last Admin: 07/03/19 06:28 Dose: 10 ml Documented by: Medical - PN: A/P - Time Spent With Patient Total time spent is greater than 50% in coordination of care (as documented) at patient's floor/unit and/or counseling patient: - Narrative A/P Narrative: Assessment: *Right foot ulcer/cellulitis: -leukocytosis improved *neuropathy, b/l foot: *Bacteremia(strep/staph): -echo no vegetations Plan: -Dr. Mata following -Dr. hutchison following, on cefazolin 2gm q8h until 07/14, if 2/3 BC neg (if negative by tonight then place midline) -serial BC -pt/ot -ppx: lovenox full code Medical - PN: Qual - VTE Deep Vein Thrombosis/Pulmonary Embolism Present on Admission: No
[2019-07-03 07:33] LABS: Basophils # (Auto) 0.02 K/mcL (0.00-0.30); Basophils % (Auto) 0.4 % (0.0-2.0); Eosinophils % (Auto) 3.5 % (0.0-7.0); Granulocytes % (Auto) 46.7 % (38.0-78.0); Hematocrit 40.3 % (40.1-51.0); Hemoglobin 13.2 g/dL (13.7-17.5); Lymphocytes # (Auto) 2.15 K/mcL (1.50-4.80); Lymphocytes % (Auto) 38.1 % (15.5-49.0); Mean Cell Volume 89.4 fL (80.0-100.0); Mean Corpuscular HGB Conc 32.8 g/dL (31.0-36.0); Mean Platelet Volume 9.3 fL (7.4-10.4); Monocytes # (Auto) 0.64 K/mcL (0.10-0.90); Monocytes % (Auto) 11.3 % (1.0-12.0); Platelet Count 263 K/mcL (140-440); RBC 4.51 M/mcL (4.63-6.08); Red Cell Distribution Width 13.2 % (11.5-14.5); WBC 5.6 K/mcL (4.50-11.00)
[2019-07-03 07:43] LABS: Blood Urea Nitrogen 9 mg/dl (6-20); Calcium 9.1 mg/dl (8.6-10.4); Carbon Dioxide 26 mmol/L (22-30); Chloride 102 mmol/L (96-108); Glomerular Filtration Rate 84; Glucose 95 mg/dL (70-105)
[2019-07-03 08:25] LABS: Erythrocyte Sedimentation Rate 28 mm/hr (0-15)
[2019-07-03] MEDS: GABAPENTIN 300 MG CAPSULE PO SCH ×3 (08:55→22:08)
[2019-07-03] MEDS: ACETAMINOPHEN 500 MG TABLET PO SCH ×3 (08:55→22:08)
[2019-07-03] MEDS: ENOXAPARIN 40 MG/0.4 ML SYRINGE SQ SCH (08:55)
[2019-07-03] MEDS: DOCUSATE SODIUM 100 MG CAPSULE PO SCH ×2 (08:55→22:09)
--- NOTE | 2019-07-03 09:32 | Orthopedic Progress Note ---
Subjective Patient information: Note initiated : 07/03/19 at 9:31 am Service Date, if different from initiated Date: [] Patient: Kel Hernandez 54 y/o M admitted on 06/29/19 for concerned foot wound is infected. Chief Complaint: [right foot infection] Principal diagnosis: cellulitis right foot Interval history: no f,c,n,v Objective Vital signs: Vital Signs Temp Pulse Resp BP BP Pulse Ox 07/03/19 08:00 97.8 F 66 18 111/70 96 07/03/19 03:51 97.9 F 67 16 125/76 95 07/02/19 19:25 98.2 F 67 18 134/76 100 07/02/19 16:00 98.2 F 67 18 109/65 96 07/02/19 12:00 97.8 F 77 18 113/62 95 Intake and Output 07/02/19 07/03/19 07/03/19 21:59 05:59 13:59 Intake Total 2550 400 940 Output Total 0 Balance 2550 400 940 Intake: IV 550 Vancomycin 1,500 mg In Sodium 500 Chloride 0.9% 500 ml @ 333.3 mls/hr IV Q12H ANGELA Rx#: [id number] Rocephin 2 gm In Dextrose 5% in 50 Water 50 ml @ 100 mls/hr IV Q24H ANGELA Rx#:[id number] Oral 2000 400 940 Output: Void Amount 0 Other: Meal Dinner Breakfast Percent of Meal Consumed 100% 100% Feeding Ability Independent Independent Stool Size Moderate Stool Color Brown Stool Consistency Soft # Voids 4 1 # Bowel Movements 1 Weight 212 lb Intake & Output: Intake & Output 07/02/19 07/03/19 07/03/19 21:59 05:59 13:59 Intake Total 2550 400 940 Output Total 0 Balance 2550 400 940 Weight 212 lb Intake: IV 550 Vancomycin 1,500 mg In Sodium 500 Chloride 0.9% 500 ml @ 333.3 mls/hr IV Q12H ANGELA Rx#: [id number] Rocephin 2 gm In Dextrose 5% in 50 Water 50 ml @ 100 mls/hr IV Q24H ANGELA Rx#:[id number] Oral 2000 400 940 Output: Void Amount 0 Other: Meal Dinner Breakfast Percent of Meal Consumed 100% 100% Feeding Ability Independent Independent Stool Size Moderate Stool Color Brown Stool Consistency Soft # Voids 4 1 # Bowel Movements 1 Incision: Yes red, Yes swollen, Yes inflamed Dressing: Yes clean, Yes dry, Yes intact - Periperhal Pulses Peripheral pulses: 2+: dorsalis pedis (L), dorsalis pedis (R), posterior tibialis (L), posterior tibialis (R) - Labs CBC & BMP: 07/03/19 05:20 07/03/19 05:20 Labs: 07/03/19 06/30/19 06/29/19 05:20 05:00 15:35 Hgb 13.2 L 13.1 L 15.6 Hct 40.3 41.1 46.9 Assessment and Plan (1) Right foot ulcer Status: Acute Priority: Medium Comment: due to pressure from lack of sensation due to neuropathy - Narrative A/P Narrative: continue iv abx
--- NOTE | 2019-07-03 13:39 | Discharge Summary ---
Medical - DS: Prov Patient information: Note initiated : 07/03/19 at 1:37 pm Service Date, if different from initiated Date: [] Patient: Kel Hernandez 54 y/o M admitted on 06/29/19 for concerned foot wound is infected. Chief Complaint: [] Date of admission: 06/29/19 22:15 Discharge date: 07/04/19 Primary care physician: Mary Vivar PA-C Consults: 06/29/19 Consult to Physician [CONS] Stat Comment: foot ulcer Consulting Provider: Uriel Mata Reason For Exam: Physician to Consult 06/29/19 18:50 Consult to Physician [CONS] Stat Comment: Consulting Provider: Kleber Elias Reason For Exam: Physician to Consult 07/01/19 11:34 Consult to Physician [CONS] Routine Comment: bacteremia Consulting Provider: Brody Hutchison Reason For Exam: Physician to Consult Medical - DS: Meds - Discharge Medications Prescriptions: ceFAZolin [Ancef] 2 gm IV Q8H #1 vial Prescription Printed Active and Home Medications: Home Medications Acetaminophen [Tylenol] 1,000 mg PO TID tab 10/18/18 [Rx Confirmed 06/30/19 Last Taken 06/29/19 09:00] docusate sodium 100 mg capsule 100 mg PO BID PRN cap 11/15/18 [History Confirmed 06/29/19 Last Taken Unknown] gabapentin 300 mg capsule 300 mg PO TID #180 cap 05/16/19 [Rx Confirmed 06/30/19 Last Taken 06/29/19 09:00] Home Medications Acetaminophen [Tylenol] 1,000 mg PO TID tab 10/18/18 [Rx Confirmed 06/30/19 Last Taken 06/29/19 09:00] docusate sodium 100 mg capsule 100 mg PO BID PRN cap 11/15/18 [History Confirmed 06/29/19 Last Taken Unknown] gabapentin 300 mg capsule 300 mg PO TID #180 cap 05/16/19 [Rx Confirmed 06/30/19 Last Taken 06/29/19 09:00] ceFAZolin [Ancef] 2 gm IV Q8H #1 vial 07/03/19 [Rx Last Taken Unknown] Medical - DS: Hosp Hospital Course: Mr. Hernandez is a 54 year old M has severe non diabetic peripheral neuropathy. 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 He has decreased sensation in all 4 distal ext but in feet is severe no light sensation both feet below the ankles. Pt has not had fever or chills but noticed erythema because examines feet daily to prevent limb loss. was wearing shoes whole time. no pain but no sensation. 2/2 Patient with temperature of 100 overnight. He states he feels fine. Blood cultures were +2 of 2 with gram-positive 2/4 Patient with worsening swelling of his foot yesterday but today is improved. His blood cultures grew staph but not MRSA. Patient is followed by Dr. Hutchison from infectious disease and also Dr. Mata podiatry. Patient reports fevers have resolved. He feels okay at this time. He is anxious regarding his foot and also 2/5 Feeling well. Redness and swelling per patient is improved in the toe. No new complaints other than ready to get out here. Awaiting final results of blood cultures before placing midline and discharge 2/6 Doing well. Negative blood cultures. Stable for discharge. midline placement. Discharge diagnosis: Right foot cellulitis and ulcer neuropathy strep staph bacteremia - Time Spent with Patient Total time spent providing and/or coordinating discharge services: Greater than 30 minutes Medical - DS: Exam - Constitutional Vitals: Vital Signs Temp Pulse Resp BP BP Pulse Ox 07/03/19 08:00 97.8 F 66 18 111/70 96 07/03/19 03:51 97.9 F 67 16 125/76 95 07/02/19 19:25 98.2 F 67 18 134/76 100 07/02/19 16:00 98.2 F 67 18 109/65 96 Intake and Output 07/02/19 07/03/19 07/03/19 21:59 05:59 13:59 Intake Total 2550 400 940 Output Total 0 Balance 2550 400 940 Intake: IV 550 Vancomycin 1,500 mg In Sodium 500 Chloride 0.9% 500 ml @ 333.3 mls/hr IV Q12H ANGELA Rx#: [id number] Rocephin 2 gm In Dextrose 5% in 50 Water 50 ml @ 100 mls/hr IV Q24H ANGELA Rx#:[id number] Oral 2000 400 940 Output: Void Amount 0 Other: Meal Dinner Breakfast Percent of Meal Consumed 100% 100% Feeding Ability Independent Independent Stool Size Moderate Stool Color Brown Stool Consistency Soft # Voids 4 1 # Bowel Movements 1 Weight 96.162 kg Medical - DS: Data Labs on day of discharge: Labs from last 24 hours 07/03/19 07/03/19 07/03/19 05:20 05:20 05:20 WBC 5.6 RBC 4.51 L Hgb 13.2 L Hct 40.3 MCV 89.4 MCH 29.3 MCHC 32.8 RDW 13.2 Plt Count 263 MPV 9.3 Gran % 46.7 Lymph % (Auto) 38.1 [place] % (Auto) 11.3 Eos % (Auto) 3.5 Baso % (Auto) 0.4 Gran # 2.63 Lymph # (Auto) 2.15 [place] # (Auto) 0.64 Eos # (Auto) 0.20 Baso # (Auto) 0.02 ESR 28 H Sodium 140 Potassium 4.3 Chloride 102 Carbon Dioxide 26 Anion Gap 12.0 BUN 9 Creatinine 1.0 GFR Calculation 84 Glucose 95 Calcium 9.1 Procalcitonin 0.20 Preliminary micro results at discharge 07/01/19 21:30 Blood Culture - Preliminary Blood 07/01/19 21:35 Blood Culture - Preliminary Blood 06/29/19 15:45 Blood Culture - Preliminary Blood Alpha strep Staphylococcus lugdunensis 06/29/19 15:35 Blood Culture - Preliminary Blood Gram positive cocci Medical - DS: A/P - Patient/Caregiver Discharge Instructions Activity: increase activity as tolerated Diet: Regular Diet Additional Instructions: Schedule 2 week f/u with Dr Hutchison MID Line and CADD pump at discharge. Prescriptions: ceFAZolin [Ancef] 2 gm IV Q8H #1 vial Prescription Printed Other Amb Orders: Outpatient Midline Catheter Care Location: None Selected - Follow up Plan Follow up with: Mary Vivar PA-C [Primary Care Provider] - Uriel Mata DPM [Physician] - Brody Hutchison MD [Physician] - Disposition: Home, Self-Care Prognosis: Undetermined Rehab Potential: Fair Overall status at discharge: patient is progressing back to baseline Medical - DS: Qual - VTE Deep Vein Thrombosis/Pulmonary Embolism Present on Admission: No
--- NOTE | 2019-07-03 16:34 | Infectious Disease Prog Note ---
Subjective Patient information: Note initiated : 07/03/19 at 4:33 pm Service Date, if different from initiated Date: [] Patient: Kel Hernandez 54 y/o M admitted on 06/29/19 for concerned foot wound is infected. Chief Complaint: [] Principal diagnosis: cellulitis right foot Interval history: doing better. Minimal pain. no fever, chills, n/v, diarrhea. Mentions that foot is less swollen. Objective Objective Narrative: ao x 3, in nad no thrush right foot: the swelling and redness is shrinking. Skin with wrinkles. Non tender. No drainage - Vital Signs Vital signs: Vital Signs Temp Pulse Resp BP BP Pulse Ox 07/03/19 12:00 36.7 C 93 H 18 157/68 96 07/03/19 08:00 36.6 C 66 18 111/70 96 07/03/19 03:51 36.6 C 67 16 125/76 95 07/02/19 19:25 36.8 C 67 18 134/76 100 Intake and Output 07/03/19 07/03/19 07/03/19 05:59 13:59 21:59 Intake Total 261 967 3171 Output Total 0 Balance 700 858 4540 Intake: IV 50 Ancef 2 gm In Dextrose 5% in 50 Water 50 ml @ 100 mls/hr IV Q8H ANGELA Rx#:[id number] Oral 048 533 7585 Output: Void Amount 0 Other: Meal Breakfast Percent of Meal Consumed 100% Feeding Ability Independent # Voids 1 3 Intake & Output: Intake & Output 07/03/19 07/03/19 07/03/19 05:59 13:59 21:59 Intake Total 669 202 0823 Output Total 0 Balance 986 364 7697 Intake: IV 50 Ancef 2 gm In Dextrose 5% in 50 Water 50 ml @ 100 mls/hr IV Q8H ANGELA Rx#:[id number] Oral 338 764 7821 Output: Void Amount 0 Other: Meal Breakfast Percent of Meal Consumed 100% Feeding Ability Independent # Voids 1 3 - Lab 07/03/19 05:20 07/03/19 05:20 Most recent lab results Calcium 9.1 mg/dl (8.6-10.4) 07/03/19 05:20 Microbiology 06/29/19 20:09 Foot - Right Gram Stain - Final 06/29/19 20:09 Foot - Right Wound Culture - Final Staphylococcus lugdunensis 07/01/19 21:30 Blood Blood Culture - Preliminary 07/01/19 21:35 Blood Blood Culture - Preliminary 06/29/19 15:45 Blood Blood Culture - Preliminary Alpha strep Staphylococcus lugdunensis 06/29/19 15:35 Blood Blood Culture - Preliminary Gram positive cocci 06/29/19 23:33 Nose - Both Right and Left MRSA (PCR) - Final Medications Active Medications: Acetaminophen (Tylenol) 1,000 mg PO TID ANGELA; Protocol Last Admin: 07/03/19 14:57 Dose: 1,000 mg Documented by: Admin: 07/03/19 08:55 Dose: 1,000 mg Documented by: Admin: 07/02/19 21:00 Dose: Not Given Documented by: YI Non-Admin Reason: held - gave [place] Admin: 07/02/19 15:01 Dose: 1,000 mg Documented by: [id number] Admin: 07/02/19 08:22 Dose: 1,000 mg Documented by: [email or web address] Admin: 07/01/19 23:35 Dose: 1,000 mg Documented by: YI Comments: slide time d/t norco Admin: 07/01/19 15:23 Dose: 1,000 mg Documented by: Admin: 07/01/19 08:09 Dose: Not Given Documented by: KIERSTEN Non-Admin Reason: NPO Admin: 06/30/19 22:16 Dose: Not Given Documented by: YI Non-Admin Reason: gave [place] Admin: 06/30/19 17:51 Dose: 1,000 mg Documented by: [id number] Admin: 06/30/19 09:22 Dose: 1,000 mg Documented by: [email or web address] Admin: 06/29/19 22:52 Dose: 1,000 mg Documented by: NSTOVER Hydrocodone Bitart/Acetaminophen ([place] 5/325mg) 1 tab PO TIDP PRN; Protocol PRN Reason: Per Pain Protocol Last Admin: 07/02/19 20:20 Dose: 1 tab Documented by: Admin: 07/02/19 03:09 Dose: 1 tab Documented by: Admin: 07/01/19 18:32 Dose: 1 tab Documented by: Admin: 06/30/19 22:20 Dose: 1 tab Documented by: YI Docusate Sodium (Colace) 100 mg PO BID [facility] Admin: 07/03/19 08:55 Dose: 100 mg Documented by: Admin: 07/02/19 20:19 Dose: Not Given Documented by: YI Non-Admin Reason: Patient Refused Admin: 07/02/19 08:41 Dose: Not Given Documented by: BHANU Non-Admin Reason: Patient Refused Admin: 07/01/19 21:11 Dose: Not Given Documented by: YI Non-Admin Reason: Patient Refused Admin: 07/01/19 08:09 Dose: Not Given Documented by: KIERSTEN Non-Admin Reason: NPO Admin: 06/30/19 22:16 Dose: Not Given Documented by: YI Non-Admin Reason: Patient Refused Admin: 06/30/19 09:22 Dose: Not Given Documented by: ANNE Non-Admin Reason: Patient Refused Admin: 06/29/19 22:54 Dose: Not Given Documented by: NORMAN Non-Admin Reason: Patient Refused Enoxaparin Sodium (Lovenox) 40 mg SQ DAILY [facility] Admin: 07/03/19 08:55 Dose: 40 mg Documented by: Admin: 07/02/19 08:22 Dose: 40 mg Documented by: Admin: 07/01/19 08:41 Dose: Not Given Documented by: KIERSTEN Non-Admin Reason: holding for surgery Admin: 06/30/19 09:21 Dose: 40 mg Documented by: [id number] Gabapentin (Neurontin) 300 mg PO TID [facility] Admin: 07/03/19 14:57 Dose: 300 mg Documented by: Admin: 07/03/19 08:55 Dose: 300 mg Documented by: Admin: 07/02/19 20:19 Dose: 300 mg Documented by: Admin: 07/02/19 15:01 Dose: 300 mg Documented by: Admin: 07/02/19 08:22 Dose: 300 mg Documented by: Admin: 07/01/19 21:10 Dose: 300 mg Documented by: Admin: 07/01/19 14:08 Dose: 300 mg Documented by: Admin: 07/01/19 08:41 Dose: 300 mg Documented by: Admin: 06/30/19 22:14 Dose: 300 mg Documented by: Admin: 06/30/19 16:47 Dose: 300 mg Documented by: Admin: 06/30/19 09:22 Dose: 300 mg Documented by: Admin: 06/29/19 22:52 Dose: 300 mg Documented by: NORMAN Cefazolin Sodium 2 gm/ (Dextrose) 50 mls @ 100 mls/hr IV Q8H ANGELA; Protocol Last Infusion: 07/03/19 14:15 Dose: 0 mls/hr Documented by: Admin: 07/03/19 13:45 Dose: 100 mls/hr Documented by: Admin: 07/03/19 06:28 Dose: Not Given Documented by: YI Non-Admin Reason: Given via Override Morphine Sulfate (Morphine) 2 mg IV Q4HP PRN; Protocol PRN Reason: Per Pain Protocol Last Admin: 07/01/19 14:07 Dose: 2 mg Documented by: Admin: 07/01/19 06:29 Dose: 2 mg Documented by: YI Neomycin/Polymyxin/Bacitracin (Neosporin) 1 dose TOPICAL BID ANGELA Ondansetron HCl (Zofran) 4 mg IV Q6HP PRN PRN Reason: Nausea And Vomiting Senna (Senokot) 2 tab PO HS [facility] Last Admin: 07/02/19 20:19 Dose: Not Given Documented by: YI Non-Admin Reason: Patient Refused Admin: 07/01/19 21:11 Dose: Not Given Documented by: YI Non-Admin Reason: Patient Refused Admin: 06/30/19 22:16 Dose: Not Given Documented by: YI Non-Admin Reason: Patient Refused Admin: 06/29/19 22:53 Dose: Not Given Documented by: MARIVER Non-Admin Reason: Patient Refused Sodium Chloride (Saline Flush) 10 ml IV Q8 ANGELA Last Admin: 07/03/19 13:45 Dose: 10 ml Documented by: Admin: 07/03/19 06:28 Dose: 10 ml Documented by: Admin: 07/02/19 20:19 Dose: 10 ml Documented by: Admin: 07/02/19 15:02 Dose: 10 ml Documented by: [email or web address] Admin: 07/02/19 09:56 Dose: Not Given Documented by: BHANU Non-Admin Reason: noc shift Admin: 07/01/19 21:14 Dose: 10 ml Documented by: [email or web address] Admin: 07/01/19 14:07 Dose: 10 ml Documented by: Admin: 07/01/19 06:32 Dose: 10 ml Documented by: [email or web address] Admin: 06/30/19 22:16 Dose: 10 ml Documented by: [email or web address] Admin: 06/30/19 17:10 Dose: 10 ml Documented by: [email or web address] Admin: 06/30/19 14:58 Dose: 10 ml Documented by: [id number] Admin: 06/30/19 06:08 Dose: Not Given Documented by: NSTOVER Non-Admin Reason: Patient Asleep Admin: 06/29/19 22:53 Dose: 10 ml Documented by: NORMAN Assessment and Plan - Narrative A/P Narrative: A: 1. Polymicrobial bacteremia with Streptococcus mitis, Staphylococcus lugdunensis: both sensitive to Cefazolin - 06/30 blood Cx positive on 06/29/19, blood Cx from 07/01 neg so far - TTE neg for any vegetations - source is right foot cellulitis without osteomyelitis 2. Rt foot cellulitis and tenosynovitis of flexor hallucis longus: wound Cx growing Staph lugdunensis - entry site seems the callus on plantar aspect of the foot - no evidence of abscess or necrotizing infection on MRI Recommendations: - Continue IV Cefazolin 2 gm q8 hrs. If blood Cx from 07/01 stay negative by ton ight; pt should get a midline placement on morning. He could then finish a 2 week course of IV Cefazolin 2 gm q8 hrs through CADD pump, with stop date of 07/14/19 - counseled to elevate his right foot and lower leg when supine. - counseled nt to walk barefoot. Triple antibiotic cream prescribed for local application over plantar callus wound will follow Brody Hutchison MD Infectious diseases
[2019-07-03] MEDS: HYDROcodone/APAP 5/325MG TABLET PO PRN (19:55)
[2019-07-03] MEDS ORDERED: NEOMY SULF/BACITRA/POLYMYXIN B OINT.PACK TOPICAL SCH (21:00)
[2019-07-03] MEDS: SENNOSIDES 1 TABLET PO SCH (22:08)
[2019-07-04] MEDS ORDERED: ceFAZolin 1 GM VIAL ONE (02:05)
[2019-07-04] MEDS: ceFAZolin 2 GM in DEXTROSE 5% IN WATER 50 ML IV SCH (06:03)
[2019-07-04] MEDS: 0.9 % SODIUM CHLORIDE 10 ML SYRINGE IV SCH (06:03)
[2019-07-04] MEDS: ACETAMINOPHEN 500 MG TABLET PO SCH (08:33)
[2019-07-04] MEDS: ENOXAPARIN 40 MG/0.4 ML SYRINGE SQ SCH (08:33)
[2019-07-04] MEDS: GABAPENTIN 300 MG CAPSULE PO SCH (08:33)
[2019-07-04] MEDS: DOCUSATE SODIUM 100 MG CAPSULE PO SCH (08:33)
[2019-07-04] MEDS ORDERED: 0.9 % SODIUM CHLORIDE 10 ML SYRINGE IV SCH (09:00)
[2019-07-04] MEDS ORDERED: ceFAZolin 8 GM in 0.9 % SODIUM CHLORIDE 200 ML IV ONE (13:00)
--- NOTE | 2019-07-04 20:20 | Infectious Disease Prog Note ---
Subjective Patient information: Note initiated : 07/04/19 at 8:18 pm Service Date, if different from initiated Date: [] Patient: Kel Hernandez 54 y/o M admitted on 06/29/19 for concerned foot wound is infected. Chief Complaint: [] Principal diagnosis: cellulitis right foot Interval history: Doing better. No fever/chills/n/v/diarrhea. Discussed need to f/u with Neurology for w/u of his neuropathy. Shared side effects of IV Cefazolin, and to call us if has 3 or >3 loose stools/day Objective Objective Narrative: ao x 3, in nad no thrush right foot: the swelling and redness continue to shrink. No warmth, non tender. minimal pitting edema. No active drainage. Plantar callus wound is scabbed has hammer toes b/l - Vital Signs Vital signs: Vital Signs Temp Pulse Resp BP Pulse Ox 07/04/19 13:49 36.4 C 75 16 121/89 92 07/04/19 08:00 36.2 C 78 18 125/83 97 07/04/19 06:59 61 07/04/19 04:00 36.8 C 61 18 122/74 98 07/03/19 23:48 36.1 C 59 L 20 116/74 95 Intake and Output 07/04/19 07/04/19 07/04/19 05:59 13:59 21:59 Intake Total 850 50 Output Total 1000 Balance -150 50 Intake: IV 50 50 Ancef 2 gm In Dextrose 5% in 50 50 Water 50 ml @ 100 mls/hr IV Q8H ANGELA Rx#:[id number] Oral 800 Output: Void Amount 1000 Other: Urine Appearance Clear Urine Color Straw Urine Odor Normal # Voids 3 Intake & Output: Intake & Output 07/04/19 07/04/19 07/04/19 05:59 13:59 21:59 Intake Total 850 50 Output Total 1000 Balance -150 50 Intake: IV 50 50 Ancef 2 gm In Dextrose 5% in 50 50 Water 50 ml @ 100 mls/hr IV Q8H ANGELA Rx#:[id number] Oral 800 Output: Void Amount 1000 Other: Urine Appearance Clear Urine Color Straw Urine Odor Normal # Voids 3 - Lab 07/03/19 05:20 07/03/19 05:20 Most recent lab results Calcium 9.1 mg/dl (8.6-10.4) 07/03/19 05:20 Microbiology 06/29/19 15:35 Blood Blood Culture - Final Streptococcus Mitis Oralis Grp Staphylococcus lugdunensis 06/29/19 15:45 Blood Blood Culture - Final Streptococcus Mitis Oralis Grp Staphylococcus lugdunensis 07/01/19 21:30 Blood Blood Culture - Preliminary 07/01/19 21:35 Blood Blood Culture - Preliminary 06/29/19 20:09 Foot - Right Gram Stain - Final 06/29/19 20:09 Foot - Right Wound Culture - Final Staphylococcus lugdunensis 06/29/19 23:33 Nose - Both Right and Left MRSA (PCR) - Final Assessment and Plan - Narrative A/P Narrative: A: 1. Polymicrobial bacteremia with Streptococcus mitis, Staphylococcus lugdunensis: both sensitive to Cefazolin - 06/30 blood Cx positive on 06/29/19, blood Cx from 07/01 neg so far - TTE neg for any vegetations - source is right foot cellulitis without osteomyelitis - s/p midline placement 2. Rt foot cellulitis and tenosynovitis of flexor hallucis longus: wound Cx growing Staph lugdunensis - entry site seems the callus on plantar aspect of the foot - no evidence of abscess or necrotizing infection on MRI Recommendations: - Continue IV Cefazolin 2 gm q8 hrs for a 2 week course through CADD pump, with stop date of 07/14/19 - counseled to elevate his right foot and lower leg when supine. - counseled nt to walk barefoot. Triple antibiotic cream prescribed for local application over plantar callus wound - ID clinic f/u around 07/14 Brody Hutchison MD Infectious diseases
== END 2019-07-04 13:48 | disposition home or self-care (01) | DRG 593 ==
LOC: ED 14:52 → MEDSUR 22:15
PROVIDERS: ADMIT Internal Medicine; ATTEND Internal Medicine